=== PATIENT | male | born 1950 | race Hispanic/Latino ===

== ENCOUNTER 2021-06-16 18:52 | Inpatient (IN) | payer OTHER ==
--- OUTSIDE RECORDS SUMMARY | 2021-06-16 18:58 | XMS REPORT | Clinical Summary ---
:1950 Author Organization [facility] MD [facility] Address [address] [place] [address] Care Team Providers Name Role Phone Coby De Anda MD Unavailable Jarett Conteh MD Primary Care Provider Cindy Blanco Unavailable Allergies Active Allergy Reactions Severity Noted Date Comments Cayenne Pepper Swelling Medium 04/01/2021 Cayenne Pepper Fruits Swelling Medium 04/01/2021 Wasabi , jalapenos, chili, chili po wder, anything spicy Nsaids (Non-Steroidal Other (See Comments) Low 09/19/2017 Contraindication--- Anti-Inflammatory hep C Drug) Medications Medication Sig Dispensed Refills Start Date End Date Status potassium chloride Take 10 mEq 0 06/18/2019 Active (K-DUR,KLOR-CON M) by mouth 3 10 mEq tablet (three) times a day. ALPRAZolam (XANAX) 1 TABLET 0 12/31/2019 Active 1 mg tablet NIGHTLY ascorbic acid, Take 1 tablet 0 A ctive vitamin C, (VITAMIN by mouth 3 C) 1000 mg tablet (three) times a day. cholecalciferol, Take 2,000 0 Ac tive vitamin D3, 25 mcg Units by (1,000 unit) tablet mouth. turmeric, bulk, 100 Take 1 packet 0 Active % powd by mouth at bedtime. chlorthalidone Take 25 mg by 0 08/14/2019 Active (HYGROTON) 25 mg mouth daily. tablet milk thistle 500 mg Take 500 mg 0 Active cap by mouth twice daily. oxyCODONE Take 1 tablet 100 tablet 0 03/24/2021 Acti ve (ROXICODONE) 5 mg (5 mg) by immediate release mouth every 6 tabletIndications: (six) hours Pain due to as needed for neoplastic disease moderate pain. guaiFENesin Take 5 mL 500 mL 0 05/19/2021 Active (ROBITUSSIN) 100 (100 mg) by mg/5 mL mouth 3 syrupIndications: (three) times Cough at rest a day as <Cough; Acute> needed for cough or congestion. lisinopril Take 40 mg by 0 10/22/2019 05/19/20 Disc ontinued (PRINIVIL,ZESTRIL) mouth daily. 21 (Therapy 40 mg tablet complet ed) oxyCODONE Take 5 mg by 0 07/17/2019 03/24/20 Discon tinued (ROXICODONE) 5 mg mouth every 6 21 (Reorder) immediate release (six) hours tablet as needed. ondansetron Take 1 tablet 30 tablet 5 03/25/2021 05/19/20 Dis continued (Zofran) 8 mg (8 mg) by 21 (Alter elise tabletIndications: mouth every 8 therapy) Hepatocellular (eight) hours carcinoma as needed for nausea or vomiting. doxycycline Take 1 6 capsule 0 04/04/2021 04/07/20 (Vibramycin) 100 MG capsule (100 21 capsuleIndications: mg) by mouth Febrile neutropenia twice daily for 3 days. amoxicillin-clavula Take 1 tablet 6 tablet 0 04/04/202104/07 elise (Augmentin) (500 mg) by 21 500 mg-125 mg per mouth twice tabletIndications: daily for 3 Febrile neutropenia days. HYDROcodone-homatro Take 5 mL by 500 mL 0 05/19/2021 Discontinued pine (HYCODAN) 5 mouth every 6 21 (Alternate mg-1.5 mg/5 mL (six) hours the rapy) syrupIndications: as needed for Cough at rest cough. 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 03/2017 EGD, Dr Castano, Grade 1 varices not banded, repeat 1 year Formatting of this note might be differe nt from the original. 03/2017 EGD, Dr Castano, Grade 1 varices not banded, repeat 1 year Chronic liver disease 03/31/2017 Hypertensive disorder 2012 Overview: Formatting of this note might be differe nt from the original. ACEI + Diuretic Formatting of this note might be differe nt from the original. ACEI + Diuretic Lisinopril 40+ chlorthalidone 25 variabl e, but control typically under 140 Chronic viral hepatitis C 12/21/2011 Overview: Formatting of this note might be differe nt from the original. Treated with Harvoni. Formatting of this note might be differe nt from the original. Treated with Harvoni. Encounters Date Type Specialty Care Team Description 05/05/2021 Telephone Gastrointestinal Neha Pearson RN Medical Oncology 05/04/2021 Orders Only Gastrointestinal Suzie Rollins Medical Oncology [place] 04/16/2021 Infusion Infusion Services Jarett Conteh Hepatjayy portillo MD carcinoma (Primary [place]og[place], Dx) RACHAEL Eddy 04/16/2021 Office Visit Gastrointestinal Jarett Conteh, Hepatocell ular carcinoma (Primary Dx); Medical Oncology Chronic laura er disease; Chronic viral h epatitis C; Hepatic fibrosi s, advanced fibrosis; Hypertensive di sorder; Portal vein thr ombosis; Other secondary thrombocytopenia; Encounter for a ntineoplastic chemo; Encounter for e xamination prior to antineoplastic chemotherapy; Encounter for a ntineoplastic immunotherapy 04/16/2021 Hospital Encounter Lab Hepatocel lular carcinoma 04/16/2021 Travel 04/04/2021 Orders Only Radiology Bartolo Dial, RT 04/01/2021 Hospital Encounter Leukemia [place], Febrile n eutropenia (Primary Dx); - MD Jose Abdominal pain; 04/04/2021 Krysten, Son V., Hyperbilirub inemia; Hepatocellular carcinoma; Jimenez Alviarez, Fever present ing with conditions classified elsewhere; Corbin Head MD Gross hematuria Charlesegaray-Herve Arredondo MD 04/01/2021 Travel 03/31/2021 Documentation Gastrointestinal Martinez Varela, Medical Oncology 03/31/2021 Telephone Gastrointestinal Martinez Varela Medical Oncology 03/31/2021 Nurse Triage Radha Jacob, RN 03/30/2021 Telephone Gastrointestinal Lyndsey Durham Medical Oncology D, RN 03/27/2021 Telephone Infusion Services Barbara Durham Follow-u p RN 03/26/2021 Infusion Infusion Services Jarett Conteh Hepatocel lular MD carcinoma (Prim zoey Dx) 03/26/2021 Travel 03/24/2021 Telemedicine Gastrointestinal Jarett Conteh, Hepatocell darrian Medical Oncology carcinoma ( Primary Dx) 03/24/2021 Orders Only Gastrointestinal Jarett Conteh, Pain due t o Medical Oncology neoplastic disease (Primary Dx) 03/23/2021 Ancillary Procedure Radiology Suzie Rollins Hepat ocellular [place] carcinoma 03/23/2021 Travel 03/20/2021 Orders Only Gastrointestinal Stiven Bashir Hepatoce llular Medical Oncology [facility] carcinoma ( Primary Dx) 03/19/2021 Ancillary Procedure Radiology Jarett Conteh Cancer 03/19/2021 Hospital Encounter Lab Suzie Rollins Hepato cellular [place] carcinoma 03/19/2021 Office Visit Gastrointestinal Jarett Conteh Hepatocell darrian carcinoma (Primary Dx); Medical Oncology Chronic vir al hepatitis C; Esophageal vari siria in cirrhosis of the liver; Chronic liver d isease; Hepatic fibrosi s, advanced fibrosis; Portal vein thr ombosis 03/19/2021 NPR Patient Access Services 03/19/2021 Orders Only Gastrointestinal Jarett Conteh Medical Oncology 03/19/2021 Orders Only Gastrointestinal Stiven Bashir Hepatjustin cornelius Medical Oncology [facility] carcinoma ( Primary Dx) 03/19/2021 Travel 03/16/2021 Orders Only Gastrointestinal Suzie Rollins Hepatjustin cornelius Medical Oncology [facility] carcinoma ( Primary Dx) 02/23/2021 Ancillary Procedure Radiology Jarett Conteh, Cancer MD after 06/16/2020 Immunizations Name Administration Dates Next Due Influenza Split High Dose Preservative 04/14/2020, 8 Free IM Influenza TIV (IM) 05/21/2015 Influenza Whole 03/27/2013, 04/15/2012 Influenza, Quadrivalent 04/14/2020, 03/26/2019, 03/19/2017, 04/13/2016, 05/21/2015, 04/26/2014, 05/19/2010 Influenza, Unspecified 03/26/2019, 04/03/2018 Pneumococcal Conjugate 13-Valent 11/08/2016 Pneumococcal Polysaccharide 07/21/2018 Rabies, Intramuscular 07/12/2003 Tdap 11/06/2018 Typhoid, Unspecified 07/12/2003 Zoster, Unspecified 05/14/2015 Surgical History Surgery Date Site/Laterality Comments APPENDECTOMY 07/11/1960 - 07/10/1961 COLONOSCOPY 07/11/2017 - 07/10/2018 UPPER GASTROINTESTINAL ENDOSCOPY 07/11/2020 - 07/10/2021 Medical History Medical History Date Comments Hypertension 2009 Irregular heart beat 2020 Hepatitis 1985 Cured, harvoni in 20 15 Cirrhosis 2004 Polyp of colon 2017 Sexual dysfunction 2015 Anxiety 2009 Family History Patient is adopted Medical History Relation Name Comments Breast cancer Mother Relation Name Status Comments Mother He was adopted b ut his biological mother had breast cancer after her 50s Social History Tobacco Use Types Packs/Day Years Used Date Former Smoker Cigarettes 1 35 Smokeless Tobacco: Never Used Comments: Quit 20 years ago Alcohol Use Standard Drinks/Week Comments Yes 0 (1 standard drink = 0.6 oz pure None s fede 1997, drank more alcohol) frequently in early adulthood Alcohol Habits Answer Date Recorded How often do you have a drink Not asked containing alcohol? How many drinks containing alcohol Not asked do you have on a typical day when you are drinking? How often do you have six or more Not asked drinks on one occasion? Comment: None since 1997, drank more 03/19/2021 frequently in early adulthood Sex Assigned at Date Recorded Male 03/11/2021 8:04 AM CDT Job Start Date Occupation Industry Not on file Not on file Not on file Travel History Travel Start Travel End [place] 03/10/2021 03/10/2021 Obstetrics History Last Filed Vital Signs Vital Sign Reading Time Taken Comments Blood Pressure 133/76 04/16/2021 12:45 PM CDT Pulse 66 04/16/2021 12:45 PM CDT Temperature 37.1 C (98.7 F) 04/16/2021 12:45 PM CDT Respiratory Rate 18 04/16/2021 12:45 PM CDT Oxygen Saturation 96% 04/16/2021 10:56 AM CDT Inhaled Oxygen Concentration - - Weight 71 kg (156 lb 8.4 oz) 04/16/2021 10:56 AM CDT Height 168.6 cm (5' 6.38") 04/01/2021 6:27 AM CDT Body Mass Index 24.98 04/01/2021 6:27 AM CDT Plan of Treatment Date Type Specialty Care Team Description 06/20/2021 Appointment Lab 06/20/2021 Appointment Radiology 06/23/2021 Telemedicine Gastrointestinal Medical Jarett Conteh MD Oncology [address] [place], [place] [address] (Wo rk) 08/19/2021 Consult Gastroenterology, Hepatology Kris Raines Chi, MD & Nutrition [address] [place], [place] [address] (Wo rk) Health Maintenance Due Date Last Done Comments COVID-19 Vaccination (2 - Moderna risk 4-dose series) 03/21/2021 02/21/2021 Procedures Procedure Name Priority Date/Time Associated Diagnosis Comme nts MANUAL DIFFERENTIAL Routine 04/16/2021 Hepatocellular Result s for 7:46 AM CDT carcinoma this procedure are in the results section. Results CBC Routine 04/16/2021 Hepatocellular Results for 7:46 AM CDT carcinoma this procedure are in the results section. FRACTIONATED BILIRUBIN Routine 04/16/2021 Hepatocellular Res ults for 7:46 AM CDT carcinoma this procedure are in the results section. TOTAL PROTEIN Routine 04/16/2021 Hepatocellular Results for 7:46 AM CDT carcinoma this procedure are in the results section. ASPARTATE Routine 04/16/2021 Hepatocellular Results for AMINOTRANSFERASE 7:46 AM CDT carcinoma this proced ure are in the results section. ALANINE Routine 04/16/2021 Hepatocellular Results for AMINOTRANSFERASE 7:46 AM CDT carcinoma this proced ure are in the results section. ALKALINE PHOSPHATASE Routine 04/16/2021 Hepatocellular Resul ts for 7:46 AM CDT carcinoma this procedure are in the results section. ALBUMIN LEVEL Routine 04/16/2021 Hepatocellular Results for 7:46 AM CDT carcinoma this procedure are in the results section. CALCIUM LEVEL TOTAL Routine 04/16/2021 Hepatocellular Result s for 7:46 AM CDT carcinoma this procedure are in the results section. .GLOMERULAR FILTRATION Routine 04/16/2021 Hepatocellular Res ults for RATE 7:46 AM CDT carcinoma this procedure are in the results section. SERUM CREATININE Routine 04/16/2021 Hepatocellular Results f or 7:46 AM CDT carcinoma this procedure are in the results section. ELECTROLYTE PANEL Routine 04/16/2021 Hepatocellular Results for 7:46 AM CDT carcinoma this procedure are in the results section. BLOOD UREA NITROGEN Routine 04/16/2021 Hepatocellular Result s for 7:46 AM CDT carcinoma this procedure are in the results section. GLUCOSE LEVEL Routine 04/16/2021 Hepatocellular Results for 7:46 AM CDT carcinoma this procedure are in the results section. COMPLETE BLOOD COUNT W/ Routine 04/16/2021 Hepatocellular DIFFERENTIAL 7:46 AM CDT carcinoma COMPREHENSIVE METABOLIC Routine 04/16/2021 Hepatocellular PANEL 7:46 AM CDT carcinoma US RENAL Routine 04/04/2021 Results for 4:33 PM CDT this procedure are in the results section. ADENOVIRUS QUANTITATIVE Now 04/04/2021 Resu lts for URINE 1:03 PM CDT this procedure are in the results section. TRANSFUSE PLATELETS Routine 04/04/2021 11:28 AM CDT URINALYSIS MICROSCOPIC Routine 04/04/2021 Resul ts for 8:13 AM CDT this procedure are in the results section. CREATININE URINE, Now 04/04/2021 Results fo r RANDOM 8:13 AM CDT this procedure are in the results section. CALCIUM LEVEL URINE Now 04/04/2021 Results for 8:13 AM CDT this procedure are in the results section. URINALYSIS WITH Now 04/04/2021 Results for MICROSCOPIC IF 8:13 AM CDT this procedur e INDICATED are in the results section. BKV QUANT, URINE Now 04/04/2021 Results for 8:13 AM CDT this procedure are in the results section. URINE CULTURE Now 04/04/2021 Results for 8:13 AM CDT this procedure are in the results section. PLT PRODUCT READY FOR Routine 04/04/2021 Result s for BUILDING CONSTRUCTION CONTRACTOR 4:55 AM CDT this procedure are in the results section. PREPARE PLATELETS Routine 04/04/2021 Results fo r 4:55 AM CDT this procedure are in the results section. MRI BRAIN W WO CONTRAST Routine 04/04/2021 Resu lts for 4:37 AM CDT this procedure are in the results section. GENERAL LABORATORY ADD Now 04/04/2021 Resul ts for ON TEST 3:37 AM CDT this procedure are in the results section. PHOSPHORUS LEVEL AM 04/04/2021 Results for 12:52 AM CDT this procedure are in the results section. MAGNESIUM LEVEL AM 04/04/2021 Results for 12:52 AM CDT this procedure are in the results section. MANUAL DIFFERENTIAL AM 04/04/2021 Results for 12:52 AM CDT this procedure are in the results section. Results CBC AM 04/04/2021 Results for 12:52 AM CDT this procedure are in the results section. FRACTIONATED BILIRUBIN AM 04/04/2021 Resul ts for 12:52 AM CDT this procedure are in the results section. TOTAL PROTEIN AM 04/04/2021 Results for 12:52 AM CDT this procedure are in the results section. ASPARTATE AM 04/04/2021 Results for AMINOTRANSFERASE 12:52 AM CDT this proced ure are in the results section. ALANINE AM 04/04/2021 Results for AMINOTRANSFERASE 12:52 AM CDT this proced ure are in the results section. ALKALINE PHOSPHATASE AM 04/04/2021 Results for 12:52 AM CDT this procedure are in the results section. ALBUMIN LEVEL AM 04/04/2021 Results for 12:52 AM CDT this procedure are in the results section. CALCIUM LEVEL TOTAL AM 04/04/2021 Results for 12:52 AM CDT this procedure are in the results section. .GLOMERULAR FILTRATION AM 04/04/2021 Resul ts for RATE 12:52 AM CDT this procedure are in the results section. SERUM CREATININE AM 04/04/2021 Results for 12:52 AM CDT this procedure are in the results section. ELECTROLYTE PANEL AM 04/04/2021 Results fo r 12:52 AM CDT this procedure are in the results section. BLOOD UREA NITROGEN AM 04/04/2021 Results for 12:52 AM CDT this procedure are in the results section. GLUCOSE LEVEL AM 04/04/2021 Results for 12:52 AM CDT this procedure are in the results section. PROTHROMBIN TIME Now 04/04/2021 Results for 12:52 AM CDT this procedure are in the results section. APTT Now 04/04/2021 Results for 12:52 AM CDT this procedure are in the results section. FIBRINOGEN ACTIVITY Now 04/04/2021 Results for 12:52 AM CDT this procedure are in the results section. COMPLETE BLOOD COUNT W/ AM 04/04/2021 DIFFERENTIAL 12:52 AM CDT COMPREHENSIVE METABOLIC AM 04/04/2021 PANEL 12:52 AM CDT ME DIAGNOSTIC LUMBAR Routine 04/03/2021 Febrile neutropenia Results for SPINAL PUNCTURE 5:34 PM CDT this procedu re are in the results section. ADENOVIRUS QUANTITATIVE Now 04/03/2021 Resu lts for , CSF 5:14 PM CDT this procedure are in the results section. FUNGUS CULTURE W/ SMEAR Now 04/03/2021 Resu lts for 5:14 PM CDT this procedure are in the results section. CSF CULTURE Now 04/03/2021 Results for 5:14 PM CDT this procedure are in the results section. AFB CULTURE W/ SMEAR Now 04/03/2021 Results for 5:14 PM CDT this procedure are in the results section. CRYPTOCOCCAL ANTIGEN Routine 04/03/2021 Results for PATH REVIEW 5:12 PM CDT this procedure are in the results section. MENINGITIS-ENCEPHALITIS Now 04/03/2021 Resu lts for MULTIPLEX PANEL PATH 5:12 PM CDT this pr ocedure REVIEW are in the results section. MENINGITIS-ENCEPHALITIS Now 04/03/2021 Resu lts for PANEL 5:12 PM CDT this procedure are in the results section. CRYPTOCOCCAL ANTIGEN Now 04/03/2021 Results for 5:12 PM CDT this procedure are in the results section. GLUCOSE CEREBROSPINAL Routine 04/03/2021 Result s for FLUID 5:12 PM CDT this procedure are in the results section. PROTEIN CEREBROSPINAL Routine 04/03/2021 Result s for FLUID 5:12 PM CDT this procedure are in the results section. CELL COUNT W/ DIFF Routine 04/03/2021 Results f or CEREBROSPINAL FLUID 5:12 PM CDT this pro cedure are in the results section. TRANSFUSE PLATELETS Routine 04/03/2021 5:00 PM CDT TMP INTERPRETATION Routine 04/03/2021 Results f or ANTIBODY SCREEN 1:54 PM CDT this procedu re NEGATIVE are in the results section. CLOT EXPIRATION DATE Routine 04/03/2021 Results for 1:54 PM CDT this procedure are in the results section. ANTIBODY SCREEN Now 04/03/2021 Results for 1:54 PM CDT this procedure are in the results section. ABORH Now 04/03/2021 Results for 1:54 PM CDT this procedure are in the results section. CALCIUM LEVEL TOTAL Routine 04/03/2021 Results for 1:54 PM CDT this procedure are in the results section. .GLOMERULAR FILTRATION Routine 04/03/2021 Resul ts for RATE 1:54 PM CDT this procedure are in the results section. SERUM CREATININE Routine 04/03/2021 Results for 1:54 PM CDT this procedure are in the results section. ELECTROLYTE PANEL Routine 04/03/2021 Results fo r 1:54 PM CDT this procedure are in the results section. BLOOD UREA NITROGEN Routine 04/03/2021 Results for 1:54 PM CDT this procedure are in the results section. GLUCOSE LEVEL Routine 04/03/2021 Results for 1:54 PM CDT this procedure are in the results section. BASIC METABOLIC PANEL, Routine 04/03/2021 CALCIUM TOTAL 1:54 PM CDT TYPE AND SCREEN Now 04/03/2021 1:54 PM CDT CRYPTOCOCCAL ANTIGEN, Routine 04/03/2021 Result s for SERUM PATH REVIEW 1:53 PM CDT this proce dure are in the results section. CRYPTOCOCCAL ANTIGEN, Now 04/03/2021 Result s for SERUM 1:53 PM CDT this procedure are in the results section. CYTOLOGY NON-MICROBIOLOGY INSTRUCTOR Routine 04/03/2021 Fever presenting Results for INTERPRETATION 1:51 PM CDT with conditions this proce dure classified elsewhere are in the results section. PREPARE PLATELETS Routine 04/03/2021 Results fo r 10:17 AM CDT this procedure are in the results section. GENERAL LABORATORY ADD STAT 04/03/2021 Resul ts for ON TEST 6:29 AM CDT this procedure are in the results section. CT HEAD WO CONTRAST Routine 04/03/2021 Results for 5:35 AM CDT this procedure are in the results section. MANUAL DIFFERENTIAL AM 04/03/2021 Results for 2:26 AM CDT this procedure are in the results section. Results CBC AM 04/03/2021 Results for 2:26 AM CDT this procedure are in the results section. COMPLETE BLOOD COUNT W/ AM 04/03/2021 DIFFERENTIAL 2:26 AM CDT PHOSPHORUS LEVEL AM 04/03/2021 Results for 12:56 AM CDT this procedure are in the results section. MAGNESIUM LEVEL AM 04/03/2021 Results for 12:56 AM CDT this procedure are in the results section. FRACTIONATED BILIRUBIN AM 04/03/2021 Resul ts for 12:56 AM CDT this procedure are in the results section. TOTAL PROTEIN AM 04/03/2021 Results for 12:56 AM CDT this procedure are in the results section. ASPARTATE AM 04/03/2021 Results for AMINOTRANSFERASE 12:56 AM CDT this proced ure are in the results section. ALANINE AM 04/03/2021 Results for AMINOTRANSFERASE 12:56 AM CDT this proced ure are in the results section. ALKALINE PHOSPHATASE AM 04/03/2021 Results for 12:56 AM CDT this procedure are in the results section. ALBUMIN LEVEL AM 04/03/2021 Results for 12:56 AM CDT this procedure are in the results section. CALCIUM LEVEL TOTAL AM 04/03/2021 Results for 12:56 AM CDT this procedure are in the results section. .GLOMERULAR FILTRATION AM 04/03/2021 Resul ts for RATE 12:56 AM CDT this procedure are in the results section. SERUM CREATININE AM 04/03/2021 Results for 12:56 AM CDT this procedure are in the results section. ELECTROLYTE PANEL AM 04/03/2021 Results fo r 12:56 AM CDT this procedure are in the results section. BLOOD UREA NITROGEN AM 04/03/2021 Results for 12:56 AM CDT this procedure are in the results section. GLUCOSE LEVEL AM 04/03/2021 Results for 12:56 AM CDT this procedure are in the results section. COMPREHENSIVE METABOLIC AM 04/03/2021 PANEL 12:56 AM CDT BLOODCULTURE STAT 04/03/2021 Results for 12:56 AM CDT this procedure are in the results section. VANCOMYCIN LEVEL TROUGH Timed Study 04/02/2021 Resu lts for 3:41 PM CDT this procedure are in the results section. FRACTIONATED BILIRUBIN AM 04/02/2021 Resul ts for 4:03 AM CDT this procedure are in the results section. TOTAL PROTEIN AM 04/02/2021 Results for 4:03 AM CDT this procedure are in the results section. ASPARTATE AM 04/02/2021 Results for AMINOTRANSFERASE 4:03 AM CDT this proced ure are in the results section. ALANINE AM 04/02/2021 Results for AMINOTRANSFERASE 4:03 AM CDT this proced ure are in the results section. ALKALINE PHOSPHATASE AM 04/02/2021 Results for 4:03 AM CDT this procedure are in the results section. ALBUMIN LEVEL AM 04/02/2021 Results for 4:03 AM CDT this procedure are in the results section. CALCIUM LEVEL TOTAL AM 04/02/2021 Results for 4:03 AM CDT this procedure are in the results section. .GLOMERULAR FILTRATION AM 04/02/2021 Resul ts for RATE 4:03 AM CDT this procedure are in the results section. SERUM CREATININE AM 04/02/2021 Results for 4:03 AM CDT this procedure are in the results section. ELECTROLYTE PANEL AM 04/02/2021 Results fo r 4:03 AM CDT this procedure are in the results section. BLOOD UREA NITROGEN AM 04/02/2021 Results for 4:03 AM CDT this procedure are in the results section. GLUCOSE LEVEL AM 04/02/2021 Results for 4:03 AM CDT this procedure are in the results section. MANUAL DIFFERENTIAL AM 04/02/2021 Results for 4:03 AM CDT this procedure are in the results section. Results CBC AM 04/02/2021 Results for 4:03 AM CDT this procedure are in the results section. OSMOLALITY Now 04/02/2021 Results for 4:03 AM CDT this procedure are in the results section. COMPREHENSIVE METABOLIC AM 04/02/2021 PANEL 4:03 AM CDT PHOSPHORUS LEVEL AM 04/02/2021 Results for 4:03 AM CDT this procedure are in the results section. MAGNESIUM LEVEL AM 04/02/2021 Results for 4:03 AM CDT this procedure are in the results section. COMPLETE BLOOD COUNT W/ AM 04/02/2021 DIFFERENTIAL 4:03 AM CDT UREA NITROGEN URINE Now 04/01/2021 Results for 3:17 PM CDT this procedure are in the results section. OSMOLALITY URINE Now 04/01/2021 Results for 3:17 PM CDT this procedure are in the results section. CREATININE URINE, Now 04/01/2021 Results fo r RANDOM 3:17 PM CDT this procedure are in the results section. SODIUM URINE Now 04/01/2021 Results for 3:17 PM CDT this procedure are in the results section. CT ABDOMEN PELVIS W STAT 04/01/2021 Results for CONTRAST 5:10 AM CDT this procedure are in the results section. URINALYSIS WITH Now 04/01/2021 Results for MICROSCOPIC IF 4:58 AM CDT this procedur e INDICATED are in the results section. URINE CULTURE Now 04/01/2021 Results for 4:58 AM CDT this procedure are in the results section. LACTIC ACID, VENOUS STAT 04/01/2021 Results for 3:08 AM CDT this procedure are in the results section. TMP INTERPRETATION STAT 04/01/2021 Results f or ANTIBODY SCREEN 2:49 AM CDT this procedu re NEGATIVE are in the results section. CLOT EXPIRATION DATE STAT 04/01/2021 Results for 2:49 AM CDT this procedure are in the results section. GLUCOSE LEVEL Now 04/01/2021 Results for 2:49 AM CDT this procedure are in the results section. ANTIBODY SCREEN STAT 04/01/2021 Results for 2:49 AM CDT this procedure are in the results section. ABORH STAT 04/01/2021 Results for 2:49 AM CDT this procedure are in the results section. MANUAL DIFFERENTIAL STAT 04/01/2021 Results for 2:49 AM CDT this procedure are in the results section. Results CBC STAT 04/01/2021 Results for 2:49 AM CDT this procedure are in the results section. FRACTIONATED BILIRUBIN Now 04/01/2021 Resul ts for 2:49 AM CDT this procedure are in the results section. TOTAL PROTEIN Now 04/01/2021 Results for 2:49 AM CDT this procedure are in the results section. ASPARTATE Now 04/01/2021 Results for AMINOTRANSFERASE 2:49 AM CDT this proced ure are in the results section. ALANINE Now 04/01/2021 Results for AMINOTRANSFERASE 2:49 AM CDT this proced ure are in the results section. ALKALINE PHOSPHATASE Now 04/01/2021 Results for 2:49 AM CDT this procedure are in the results section. ALBUMIN LEVEL Now 04/01/2021 Results for 2:49 AM CDT this procedure are in the results section. CALCIUM LEVEL TOTAL Now 04/01/2021 Results for 2:49 AM CDT this procedure are in the results section. .GLOMERULAR FILTRATION Now 04/01/2021 Resul ts for RATE 2:49 AM CDT this procedure are in the results section. SERUM CREATININE Now 04/01/2021 Results for 2:49 AM CDT this procedure are in the results section. ELECTROLYTE PANEL Now 04/01/2021 Results fo r 2:49 AM CDT this procedure are in the results section. BLOOD UREA NITROGEN Now 04/01/2021 Results for 2:49 AM CDT this procedure are in the results section. CONFIRM ABORH TYPE STAT 04/01/2021 Results f or 2:49 AM CDT this procedure are in the results section. TYPE AND SCREEN STAT 04/01/2021 2:49 AM CDT APTT Now 04/01/2021 Results for 2:49 AM CDT this procedure are in the results section. PROTHROMBIN TIME Now 04/01/2021 Results for 2:49 AM CDT this procedure are in the results section. COMPLETE BLOOD COUNT W/ Now 04/01/2021 DIFFERENTIAL 2:49 AM CDT LIPASE LEVEL Now 04/01/2021 Results for 2:49 AM CDT this procedure are in the results section. AMYLASE LEVEL Now 04/01/2021 Results for 2:49 AM CDT this procedure are in the results section. COMPREHENSIVE METABOLIC Now 04/01/2021 PANEL 2:49 AM CDT PHOSPHORUS LEVEL Now 04/01/2021 Results for 2:49 AM CDT this procedure are in the results section. MAGNESIUM LEVEL Now 04/01/2021 Results for 2:49 AM CDT this procedure are in the results section. RESPIRATORY VIRAL PANEL Now 04/01/2021 Resu lts for + COVID-19, 2:49 AM CDT this procedure NASOPHARYNGEAL SWAB are in t he results section. BLOODCULTURE Now 04/01/2021 Results for 2:49 AM CDT this procedure are in the results section. URINALYSIS WITH Routine 03/26/2021 Hepatocellular Results fo r MICROSCOPIC IF 7:56 AM CDT carcinoma this procedur e INDICATED are in the results section. MANUAL DIFFERENTIAL Routine 03/26/2021 Hepatocellular Result s for 6:57 AM CDT carcinoma this procedure are in the results section. Results CBC Routine 03/26/2021 Hepatocellular Results for 6:57 AM CDT carcinoma this procedure are in the results section. FRACTIONATED BILIRUBIN Routine 03/26/2021 Hepatocellular Res ults for 6:57 AM CDT carcinoma this procedure are in the results section. TOTAL PROTEIN Routine 03/26/2021 Hepatocellular Results for 6:57 AM CDT carcinoma this procedure are in the results section. ASPARTATE Routine 03/26/2021 Hepatocellular Results for AMINOTRANSFERASE 6:57 AM CDT carcinoma this proced ure are in the results section. ALANINE Routine 03/26/2021 Hepatocellular Results for AMINOTRANSFERASE 6:57 AM CDT carcinoma this proced ure are in the results section. ALKALINE PHOSPHATASE Routine 03/26/2021 Hepatocellular Resul ts for 6:57 AM CDT carcinoma this procedure are in the results section. ALBUMIN LEVEL Routine 03/26/2021 Hepatocellular Results for 6:57 AM CDT carcinoma this procedure are in the results section. CALCIUM LEVEL TOTAL Routine 03/26/2021 Hepatocellular Result s for 6:57 AM CDT carcinoma this procedure are in the results section. .GLOMERULAR FILTRATION Routine 03/26/2021 Hepatocellular Res ults for RATE 6:57 AM CDT carcinoma this procedure are in the results section. SERUM CREATININE Routine 03/26/2021 Hepatocellular Results f or 6:57 AM CDT carcinoma this procedure are in the results section. ELECTROLYTE PANEL Routine 03/26/2021 Hepatocellular Results for 6:57 AM CDT carcinoma this procedure are in the results section. BLOOD UREA NITROGEN Routine 03/26/2021 Hepatocellular Result s for 6:57 AM CDT carcinoma this procedure are in the results section. GLUCOSE LEVEL Routine 03/26/2021 Hepatocellular Results for 6:57 AM CDT carcinoma this procedure are in the results section. ALPHA FETOPROTEIN TUMOR Routine 03/26/2021 Hepatocellular Re sults for MARKER 6:57 AM CDT carcinoma this procedure are in the results section. THYROID STIMULATING Routine 03/26/2021 Hepatocellular Result s for HORMONE 6:57 AM CDT carcinoma this procedure are in the results section. FREE THYROXINE Routine 03/26/2021 Hepatocellular Results for 6:57 AM CDT carcinoma this procedure are in the results section. FREE T3 Routine 03/26/2021 Hepatocellular Results for 6:57 AM CDT carcinoma this procedure are in the results section. COMPLETE BLOOD COUNT W/ Routine 03/26/2021 Hepatocellular DIFFERENTIAL 6:57 AM CDT carcinoma COMPREHENSIVE METABOLIC Routine 03/26/2021 Hepatocellular PANEL 6:[address] CHEST ABDOMEN PELVIS Routine 03/23/2021 Hepatocellular Re sults for W WO CONTRAST 2:10 PM CDT carcinoma this procedure are in the results section. TMP HCVAB INTERP Routine 03/19/2021 Results for 1:29 PM CDT this procedure are in the results section. TMP HIV 1/2 AG&AB PATH Routine 03/19/2021 Resul ts for INTERP 1:29 PM CDT this procedure are in the results section. HEPATITIS B SURFACE AG Routine 03/19/2021 Resul ts for W/CONFIRM 1:29 PM CDT this procedure are in the results section. HEPATITIS B CORE TOTAL Routine 03/19/2021 Resul ts for ANTIBODY 1:29 PM CDT this procedure are in the results section. FRACTIONATED BILIRUBIN Routine 03/19/2021 Hepatocellular Res ults for 1:29 PM CDT carcinoma this procedure are in the results section. TOTAL PROTEIN Routine 03/19/2021 Hepatocellular Results for 1:29 PM CDT carcinoma this procedure are in the results section. ASPARTATE Routine 03/19/2021 Hepatocellular Results for AMINOTRANSFERASE 1:29 PM CDT carcinoma this proced ure are in the results section. ALANINE Routine 03/19/2021 Hepatocellular Results for AMINOTRANSFERASE 1:29 PM CDT carcinoma this proced ure are in the results section. ALKALINE PHOSPHATASE Routine 03/19/2021 Hepatocellular Resul ts for 1:29 PM CDT carcinoma this procedure are in the results section. ALBUMIN LEVEL Routine 03/19/2021 Hepatocellular Results for 1:29 PM CDT carcinoma this procedure are in the results section. CALCIUM LEVEL TOTAL Routine 03/19/2021 Hepatocellular Result s for 1:29 PM CDT carcinoma this procedure are in the results section. .GLOMERULAR FILTRATION Routine 03/19/2021 Hepatocellular Res ults for RATE 1:29 PM CDT carcinoma this procedure are in the results section. SERUM CREATININE Routine 03/19/2021 Hepatocellular Results f or 1:29 PM CDT carcinoma this procedure are in the results section. ELECTROLYTE PANEL Routine 03/19/2021 Hepatocellular Results for 1:29 PM CDT carcinoma this procedure are in the results section. BLOOD UREA NITROGEN Routine 03/19/2021 Hepatocellular Result s for 1:29 PM CDT carcinoma this procedure are in the results section. GLUCOSE LEVEL Routine 03/19/2021 Hepatocellular Results for 1:29 PM CDT carcinoma this procedure are in the results section. MANUAL DIFFERENTIAL Routine 03/19/2021 Hepatocellular Result s for 1:29 PM CDT carcinoma this procedure are in the results section. Results CBC Routine 03/19/2021 Hepatocellular Results for 1:29 PM CDT carcinoma this procedure are in the results section. HEMOGLOBIN A1C Routine 03/19/2021 Hepatocellular Results for 1:29 PM CDT carcinoma this procedure are in the results section. HIV-1/2 ANTIGEN AND Routine 03/19/2021 Hepatocellular Result s for ANTIBODIES, FOURTH 1:29 PM CDT carcinoma this proc edure GENERATION are in the results section. HEPATITIS E VIRUS BY Routine 03/19/2021 Hepatocellular Resul ts for QUANTITATIVE PCR [place] 1:29 PM CDT carcinoma this p rocedure are in the results section. HEPATITIS C VIRUS RNA Routine 03/19/2021 Hepatocellular Resu lts for DETECT/QUANT, SERUM 1:29 PM CDT carcinoma this pro cedure are in the results section. HEPATITIS C VIRUS Routine 03/19/2021 Hepatocellular Results for ANTIBODY 1:29 PM CDT carcinoma this procedure are in the results section. HEPATITIS B CORE Routine 03/19/2021 Hepatocellular Results f or ANTIBODY 1:29 PM CDT carcinoma this procedure are in the results section. HEPATITIS B SURFACE Routine 03/19/2021 Hepatocellular Result s for ANTIBODY, SERUM 1:29 PM CDT carcinoma this procedu re are in the results section. HEPATITIS B SURFACE Routine 03/19/2021 Hepatocellular Result s for ANTIGEN, SERUM 1:29 PM CDT carcinoma this procedur e are in the results section. HEPATITIS A ANTIBODY Routine 03/19/2021 Hepatocellular Resul ts for IGG 1:29 PM CDT carcinoma this procedure are in the results section. FREE THYROXINE Routine 03/19/2021 Hepatocellular Results for 1:29 PM CDT carcinoma this procedure are in the results section. THYROID STIMULATING Routine 03/19/2021 Hepatocellular Result s for HORMONE 1:29 PM CDT carcinoma this procedure are in the results section. INSULIN LIKE GROWTH Routine 03/19/2021 Hepatocellular Result s for FACTOR 1 1:29 PM CDT carcinoma this procedure are in the results section. GROWTH HORMONE Routine 03/19/2021 Hepatocellular Results for 1:29 PM CDT carcinoma this procedure are in the results section. APTT Routine 03/19/2021 Hepatocellular Results for 1:29 PM CDT carcinoma this procedure are in the results section. PROTHROMBIN TIME Routine 03/19/2021 Hepatocellular Results f or 1:29 PM CDT carcinoma this procedure are in the results section. PHOSPHORUS LEVEL Routine 03/19/2021 Hepatocellular Results f or 1:29 PM CDT carcinoma this procedure are in the results section. MAGNESIUM LEVEL Routine 03/19/2021 Hepatocellular Results fo r 1:29 PM CDT carcinoma this procedure are in the results section. LACTATE DEHYDROGENASE Routine 03/19/2021 Hepatocellular Resu lts for 1:29 PM CDT carcinoma this procedure are in the results section. COMPREHENSIVE METABOLIC Routine 03/19/2021 Hepatocellular PANEL 1:29 PM CDT carcinoma CANCER ANTIGEN 19-9 Routine 03/19/2021 Hepatocellular Result s for 1:29 PM CDT carcinoma this procedure are in the results section. COMPLETE BLOOD COUNT W/ Routine 03/19/2021 Hepatocellular DIFFERENTIAL 1:29 PM CDT carcinoma ALPHA FETOPROTEIN TUMOR Routine 03/19/2021 Hepatocellular Re sults for MARKER 1:29 PM CDT carcinoma this procedure are in the results section. OSI PET CT SKULL TO MID Routine 01/08/2021 Cancer Resu lts for THIGH 5:39 PM CDT this procedure are in the results section. OSI PET CT SKULL TO MID Routine 10/23/2020 Cancer Resu lts for THIGH 12:46 PM CDT this procedure are in the results section. after 06/16/2020 Results .Serum Creatinine (04/16/2021 7:46 AM CDT)Only the most recent of8 results within the time period is included. Pathologist Sig nature Creatinine 0.77 0.67 - 1.17 mg/dL [facility] CANCER C ENTER Specimen Blood Performing Organization Address City/State/ZIP Code Phon e Number [facility] CANCER Unless otherwise noted, [place] [address] [place] all lab tests performed by: Division of Pathology and Laboratory Medicine [address] (ABNORMAL) .CBC (04/16/2021 7:46 AM CDT)Only the most recent of7 resultswithin the time period is included. WBC 2.2 (L) 4.0 - 11.0 [facility] K/uL DI[facility] RBC 3.27 (L) 4.50 - 6.00 [facility] M/uL [facility] Hgb 11.3 (L) 14.0 - 18.0 [facility] gm/dL DIAG[facility]STIC CENTER Hct 32.6 (L) 40.0 - 54.0 % [facility] DIAGNOSTIC [place] MCV 100 (H) 82 - 98 fL [facility] DIAGNOSTIC [place] MCH 34.6 (H) 27.0 - 31.0 [facility] pg DIAGNOSTIC CENTER MCHC 34.7 31.0 - 36.0 [facility] gm/dL DIAGNOSTIC CENTER RDW-SD 56.4 (H) 35.1 - 46.3 [facility] DIAGNOSTIC CENTER RDW-CV 15.6 (H) 12.0 - 15.5 % [facility] Platelet count 60 (L) 140 - 440 [facility] K/uL DIAGNOSTIC CENTER MPV 8.6 4.0 - 10.4 fL [facility] INRBC 0.0 <=0.0 % [facility] Comment: DIAGNOSTIC CENTER The INRBC (instrument NRBC) value reflects the enumera tion of nucleated red blood cells contained in a 200uL samp le of whole blood analyzed by the instrument. This value may differ from the NRBC value reported in a manual differ ential, which is based on a 100 cell differential. Specimen Blood Performing Organization Address City/State/ZIP Code Phon e Number [facility] DIAGNOSTIC Unless otherwise noted, [place] [address] [place] all lab tests performed by: Division of Pathology and Laboratory Medicine [facility] [address] [place] Glomerular Filtration Rate (04/16/2021 7:46 AM CDT)Only the most recent of8 resultswithin the time period is included. eGFR-AA 106 >=60 [facility] Comment: mL/min/1.73 CANCER CENTER Normal eGFR: >= 60 mL/min/1.73 m2 sq. m Note: The eGFR is calculated using the CKD-EPI equation. The eGFR declines with age. eGFR <60 mL/min/1.73 m2 is considered as "decreased". This equation should only be used for patients 18 and older. According to the National [facility]'s Kidney Disease Outcome Quality Initiative (KDOQI) classification and 2012 Kidney Disease Improving Global Outcomes (KDIGO) Clinical Practice Guideline, the stage of CKD should be categorized based on estimated GFR. Stage Description GFR mL/min/1.73 m2 1 Normal or high GFR >=90 2 Mildly decreased GFR 60-89 3a Mildly to moderately decreased GFR 45-59 3b Moderately to severely decreased GFR 30-44 4 Severely decreased GFR 15-29 5 Kidney failure <15 eGFR-SRINI 91 >=60 [facility] Comment: mL/min/1.73 CANCER CENTER Normal eGFR: >= 60 mL/min/1.73 m2 sq. m Note: The eGFR is calculated using the CKD-EPI equation. The eGFR declines with age. eGFR <60 mL/min/1.73 m2 is considered as "decreased". This equation should only be used for patients 18 and older. According to the National dney Foundation's Kidney Disease Outcome Quality Initiative (KDOQI) classification and 2012 Kidney Disease Improving Global Outcomes (KDIGO) Clinical Practice Guideline, the stage of CKD should be categorized based on estimated GFR. Stage Description GFR mL/min/1.73 m2 1 Normal or high GFR >=90 2 Mildly decreased GFR 60-89 3a Mildly to moderately decreased GFR 45-59 3b Moderately to severely decreased GFR 30-44 4 Severely decreased GFR 15-29 5 Kidney failure <15 Specimen Blood Performing Organization Address City/State/ZIP Code Phon e Number [facility] CANCER Unless otherwise noted, [place] [address] [place] all lab tests performed by: Division of Pathology and Laboratory Medicine [address] (ABNORMAL) Fractionated Bilirubin (04/16/2021 7:46 AM CDT)Only the most recent of7 resultswithin the time period is included. Bili Total 1.8 (H) <=1.2 mg/dL [facility] Comment: CANCER CENTER Indocyanine Green (ICG) may cause falsely elevated bilirubin results. Total and direct bilirubin must not be measured from samples containing indocyanine green. False elevation of total saira irubin can be seen in patients with IgG concentrations above 28 g/L. Bili Direct 1.0 (H)Comment: <=0.3 mg/dL [facility] Indocyanine Green CANCER CENTER (ICG) may cause falsely elevated bilirubin results. Total and direct bilirubin must not be measured from samples containing indocyanine green. Bili Indirect 0.8 0.0 - 0.9 [facility] mg/dL CANCER CENTER Specimen Blood Performing Organization Address City/[facility] Phon e Number [facility] CANCER Unless otherwise noted, [place] [address] C[place] all lab tests performed by: Division of Pathology and Laboratory Medicine [address] [facility] (ABNORMAL) Differential (04/16/2021 7:46 AM CDT)Only the most recent of7 resultswithin the time period is included. Neutrophil % 62.1 42.0 - 66.0 % [facility] Lymphocyte % 12.5 (L) 24.0 - 44.0 % [facility] Monocyte % 19.6 (H) 2.0 - 7.0 % [facility] DIAGNOSTIC [place] Eosinophil % 4.5 (H) 1.0 - 4.0 % [facility] Basophil % 0.9 0.0 - 1.0 % [facility] IGRE % 0.4Comment: IGRE 0.0 - 0.4 % [facility] % count includes DIAGNOSTIC CENTER Metamyelocytes, Myelocytes, and Promyelocytes. Neutrophil Abs 1.39 (L) 1.70 - 7.30 [facility] DI[facility]STIC [place] Lymphocyte Abs 0.28 (L) 1.00 - 4.80 [facility]ST[facility] [place] Monocyte Abs 0.44 0.08 - 0.70 [facility]NOSTIC [place] Eosinophil Abs 0.10 0.04 - 0.40 [facility] DI[facility]NOSTIC [place] Basophil Abs 0.02 0.00 - 0.10 [facility]NOSTIC [place] IG Abs 0.01 0.00 - 0.04 [facility] CENTER Specimen Blood Performing Organization Address City/[facility]/ZIP [facility] Phon e Number [facility] DIAGNOSTIC Unless otherwise noted, [place], [place] [address] [place] all lab tests performed by: Division of Pathology and Laboratory Medicine [facility] BUN (04/16/2021 7:46 AM CDT)Only the most recent of8 resultswithin the time period is included. Pathologist Sig nature BUN 17 6 - 23 mg/dL [facility] Specimen Blood Performing Organization Address City/[facility] Phon e Number [facility] CANCER Unless otherwise noted, [address] all lab tests performed by: Division of Pathology and Laboratory Medicine [address] [place] (ABNORMAL) ALT (04/16/2021 7:46 AM CDT)Only the most recent of7 resultswithin the time period is included. Pathologist Sig nature ALT 62 (H) <=41 U/L [facility] Specimen Blood Performing Organization Address City/[facility] Phon e Number [facility] Unless otherwise noted, [address] all lab tests performed by: Division of Pathology and Laboratory Medicine [address] [place] (ABNORMAL) Aspartate Aminotransferase (04/16/2021 7:46 AM CDT)Only the most recent of7 resultswithin the time period is included. Pathologist Sig nature AST 129 (H) <=40 U/L [facility] Specimen Blood Performing Organization Address [facility] Phon e Number [facility] Unless otherwise noted, [address] all lab tests performed by: Division of Pathology and Laboratory Medicine [address] [place] (ABNORMAL) Total Protein (04/16/2021 7:46 AM CDT)Only the most recent of7 resultswithin the time period is included. Pathologist Sig nature Total Protein 9.3 (H) 6.4 - 8.3 g/dL [facility] Specimen Blood Performing Organization Address [facility] e Number [facility] Unless otherwise noted, [address] all lab tests performed by: Division of Pathology and Laboratory Medicine [address] [place] [address] [place] (ABNORMAL) Alkaline Phosphatase (04/16/2021 7:46 AM CDT)Only the most recent of 7 resultswithin the time period is included. Pathologist Sig nature Alk Phos 272 (H) 40 - 129 U/L [facility] Specimen Blood Performing Organization Address City/[facility] Phon e Number [facility] CANCER Unless otherwise noted, [address] all lab tests performed by: Division of Pathology and Laboratory Medicine [address] [place] [address] [place] (ABNORMAL) Glucose Level (04/16/2021 7:46 AM CDT)Only the most recent of8 resultswithin the time period is included. Glucose Level 100 (H) 70 - 99 mg/dL [facility] Comment: CANCER CENTER Effective 02/04/16, the gluco se reference intervals have been updated based on [place] [employer] guidelines (Standards of Medical Care in Diabetes 2016. Diabetes Care 2016; 39: S13-S22). Fasting blood glucose: Normal: 70-99 mg/dL Impaired fasting glucose (in creased risk for diabetes or pre-diabetes): 100- 125 mg/dL Diabetes mellitus: >/=126 mg/dL Random blood glucose: Normal: 70-199 mg/dL Note: Random glucose >100 mg/dL is assoc iated with increased risk for diabetes Specimen Blood Performing Organization Address [facility] Phon e Number [facility] Unless otherwise noted, [address] all lab tests performed by: Division of Pathology and Laboratory Medicine [address] [place] Calcium Level (04/16/2021 7:46 AM CDT)Only the most recent of8 resultswithin the time period is included. Pathologist Sig nature Calcium Lvl 9.0 8.4 - 10.2 mg/dL [facility] CANCER NTER Specimen Blood Performing Organization Address [facility] Phon e Number [facility] Unless otherwise noted, [address] all lab tests performed by: Division of Pathology and Laboratory Medicine [address] [place] (ABNORMAL) Albumin Level (04/16/2021 7:46 AM CDT)Only the most recent of7 resultswithin the time period is included. Pathologist Sig nature Albumin Lvl 2.9 (L) 3.5 - 5.2 gm/dL [facility] Specimen Blood Performing Organization Address [facility] Phon e Number [facility] CANCER Unless otherwise noted, [address] all lab tests performed by: Division of Pathology and Laboratory Medicine [address] [place] (ABNORMAL) Electrolyte Panel (04/16/2021 7:46 AM CDT)Only the most recent of8 resultswithin the time period is included. Pathologist Sig nature Sodium Lvl 133 (L) 136 - 145 mEq/L [facility] Potassium Lvl 4.2 3.5 - 5.1 mEq/L [facility] Chloride 104 98 - 107 mEq/L [facility] CO2 20 (L) 22 - 29 mEq/L [facility] Anion Gap 9 4 - 14 mEq/L [facility] Specimen Blood Performing Organization Address City/State/ZIP Code Phon e Number [facility] CANCER Unless otherwise noted, [place] [address] CENTER all lab tests performed by: Division of Pathology and Laboratory Medicine [facility] US Renal (04/04/2021 4:33 PM CDT) Specimen Impressions [id number] - 04/04/2021 5:02 PM CDT No hydronephrosis. Narrative [id number] - 04/04/2021 5:02 PM CDT FULL RESULT: Examination: US RENAL, 04/04/2021 4:33 PM Clinical History: Fever Indication: Hematuria Comparison: CT study of the abdomen pelv is April 01, 2021 Technique: Grayscale and color Doppler u ltrasound of the kidneys and urinary bladder. Findings: The 10 cm long kidneys have normal echog enicity and without hydronephrosis. Bilateral cysts are present. There are s een in the comparison CT study. Arterial and venous flow is present in b oth kidneys. No intraluminal filling defects are seen in the urinary bladder. Procedure Note Apolinar Wong MD - 04/04/2021 FULL RESULT: Examination: US RENAL, 04/04/2021 4:33 P M Clinical History: Fever Indication: Hematuria Comparison: CT study of the abdomen pelv is April 01, 2021 Technique: Grayscale and color Doppler u ltrasound of the kidneys and urinary bladder. Findings: The 10 cm long kidneys have normal echog enicity and without hydronephrosis. Bilateral cysts are present. There are s een in the comparison CT study. Arterial and venous flow is present in b oth kidneys. No intraluminal filling defects are seen in the urinary bladder. IMPRESSION: No hydronephrosis. Performing Organization Address City/State/ZIP Code Phon e Number [id number] Adenovirus Quant, Urine (04/04/2021 1:03 PM CDT) ADV Not Detected Not Detected [facility] Urine-[facility] Comment: copies/mL [facility] Assay Range: 152 copies/mL to 1.00E+10 copies/mL The limit of quantitation (LOQ) is 152 copies/mL. Lb ovirus DNA detected below the LOQ will be reported as Detected:<1 52 copies/mL. This test was developed and its performance characteri stics determined by [employer]. It has not been cleare d or approved by the U.S. Food and Drug Administration. Results shou ld be used in conjunction with clinical findings, and should not for m the sole basis for a diagnosis or treatment decision. Performed At: [facility] [address] [place] [address] Elevator Attendant: Riley Araujo Ph.D., BCLAislinn (ABB) CLIA#: [id number] Phone: Specimen Urine Performing Organization Address City/State/ZIP Code Phon e Number [facility] CANCER Unless otherwise noted, [place] [address] [place] all lab tests performed by: Division of Pathology and Laboratory Medicine [facility] [address] Transfuse platelets:Transfusion Date: 04/04/2021 (04/04/2021 12:37 PM CDT)Only the most recent of2 resultswithin the time period is included.BKV Quant, Urine (04/04/2021 8:13 AM CDT) BKV Not Detected Not Detected [facility] Urine-[facility] Comment: copies/mL [facility] Assay Range: 500 copies/mL to 1.00E+10 copies/mL This test was developed and its performance characteri stics determined by [employer]. It has not been cleare d or approved by the U.S. Food and Drug Administration. Results shou ld be used in conjunction with clinical findings, and should not for m the sole basis for a diagnosis or treatment decision. Performed At: [facility] [place] [address] Elevator Attendant: Riley Araujo Ph.D., ELLEN (ABB) CLIA#: [id number] Phone: Specimen Urine Performing Organization Address City/[facility]/ZIP Code Phon e Number [facility] Unless otherwise noted, [address] all lab tests performed by: Division of Pathology and Laboratory Medicine [address] (ABNORMAL) Urinalysis with Microscopic (04/04/2021 8:13 AM CDT) Pathologist Sig nature UA WBC <1 0 - 2 /HPF [facility] UA RBC >182 (H) 0 - 2 /HPF [facility] UA Mucous NOT SEEN Not Seen-Trace /HPF [facility] UA Bacteria NOT SEEN NOT SEEN /HPF [facility] UA Squam Epi NOT SEEN None-Occasional [facility] /[facility] CENTER Specimen Urine Narrative [facility] - 9:12 AM CDT Some reporting parameters within the Urinalysis test have changed due to the implementation of new in strumentation in the Main [place], allowi ng greater sensitivity of measurement. Urinalysis results reported by the [facility] using existing instrumentation, as well as Urinalysis t esting performed manually or by backup methodology at the [facility] will remain relatively unchanged. New reporting parameters and units will now be reported for all campuses. Performing Organization Address City/State/ZIP Code Phon e Number [facility] Unless otherwise noted, [address] all lab tests performed by: Division of Pathology and Laboratory Medicine [address] Creatinine Urine (04/04/2021 8:13 AM CDT)Only the most recent of2 resultswithin the time period is included. U Creatinine 82.1Comment: The 40.0 - 278.0 [facility] reference range mg/dL CAN[facility]ER CENTER listed is for first morning urine collection. Specimen Urine Performing Organization Address City/[facility]/ZIP Code Phon e Number [facility] Unless otherwise noted, [address] all lab tests performed by: Division of Pathology and Laboratory Medicine [address] [place] [address] Calcium Urine (04/04/2021 8:13 AM CDT) Pathologist Sig rodo U Calcium 2.6Comment: Normal mg/dL [facility] range not available for [facility] CENTER collections less than 24 hours in duration. Specimen Urine Performing Organization Address City/[facility] Phon e Number [facility] CANCER Unless otherwise noted, [address] all lab tests performed by: Division of Pathology and Laboratory Medicine [address] [place] [address] (ABNORMAL) Urinalysis w/Microscopic if Indicated (04/04/2021 8:13 AM CDT)Only the most recent of3 resultswithin the time period is included. Pathologist Sig rodo UA Color Yellow Straw-Yellow [facility] UA Appear Clear Clear [facility] UA Glucose NEG NEG mg/dL [facility] UA Bili NEG NEG [facility] UA Ketones NEG NEG mg/dL [facility] UA Spec Grav 1.018 1.003 - 1.035 [facility] UA Blood Moderate (A) NEG [facility] UA pH 6.0 5.0 - 9.0 [facility] UA Protein NEG NEG mg/dL [facility] UA Urobilinogen NEG NEG [facility] UA Nitrite NEG NEG [facility] UA Leuk Est NEG NEG [facility] Specimen Urine Performing Organization Address City/[facility] Phon e Number [facility] CANCER Unless otherwise noted, [address] all lab tests performed by: Division of Pathology and Laboratory Medicine [address] [place] [address] [place] Urine Culture (04/04/2021 8:13 AM CDT)Only the most recent of2 resultswithin the time period is included. Final Report No growth [facility] Path Review - The results have been review ed and electronically signed by Pathologist: [facility] Urine Sharad Stanford MD, PhD #[id number] [facility] ER Specimen Urine, Clean Catch Performing Organization Address City/[facility] Phon e Number [facility] CANCER Unless otherwise noted, [address] all lab tests performed by: Division of Pathology and Laboratory Medicine [address] [place] [address] PLT Product Ready for Imaging Account Manager (04/04/2021 4:55 AM CDT) PLT Product Ready B2 Blood [facility] for Imaging Account Manager BankComment: [facility] CENTER Product is ready for warehouse picker on April 04, 2021 10:31:48 CDT. Specimen Blood Performing Organization Address City/[facility] Code Phon e Number [facility] CANCER Unless otherwise noted, [address] all lab tests performed by: Division of Pathology and Laboratory Medicine [address] [place] [address] Prepare platelets:Transfusion Date: 04/04/2021; Transfusion Indications: Actively Bleeding; G 1945, 1Units (04/04/2021 4:55 AM CDT)Only the most recent of2 resultswithin the time period is included. Pathologist [facility] PLT Product Ready ApprovedComment: [facility] Platelet order has [facility] been approved. Order Form 3 when ready for product issue. Expect 2 hours for platelet concentration. Unit Number [id number] [facility] Product Code [id number] [facility] Unit Expiration [id number] [facility] Unit Blood Type 5100 [facility] Product Code Text PLATELETS Pooled IR [facility] Number of Units in [address] [facility] CENTER Unit Irradiated IRRADIATED [facility] Dispense Status ISSUED [facility] Unit Blood Type O Positive [facility] Product Imaging Account Manager .BPAMComment: [facility] Location CANCER CENTER Specimen Blood Performing Organization Address City/State/ZIP [facility] Phon e Number [facility] CANCER Unless otherwise noted, [address] all lab tests performed by: Division of Pathology and Laboratory Medicine [address] [place] [address] MRI Brain with and without Contrast (04/04/2021 4:37 AM CDT) Specimen Impressions [id number] - 04/04/2021 7:00 AM CDT No evidence of intracranial metastatic disease. I personally reviewed these image(s) eden hernandez with the resident's/fellow's interpretations, certify that if a procedure was performed I was physically present, and agree with the final report. Narrative [id number] - 04/04/2021 7:00 AM CDT FULL RESULT: EXAMINATION: MRI BRAIN W WO CONTRAST on 04/04/2021 4:37 AM HISTORY: Fever INDICATION: Headache, new onset, Cancer screening COMPARISON: CT from 04/03/2021 TECHNIQUE: Multi-sequence MRI of the bra in with and without intravenous contrast as per standard departmental protocol. FINDINGS: INTRACRANIAL: The brain parenchyma is un remarkable. There is no abnormal parenchymal or leptomeningeal enhancement. Mild chronic small vessel ischemic disease is present. No suspicious enhancing lesions. No evidence of acute infarction. There is no evidence of acute infarction , new hemorrhage, or hydrocephalus. The visualized major intracranial vascular flow voids are unremarkable. EXTRA-CRANIAL SOFT TISSUES: The osseous structures and extra-cranial soft tissues are unremarkable. ORBITS: The orbital structures unremarka ble. SINUSES: Mild mucosal thickening in the left maxillary sinus. Left maxillary sinus mucus retention cyst. Procedure Note Joce Serrano MD - 04/04/2021 FULL RESULT: EXAMINATION: MRI BRAIN W WO CONTRAST on 04/04/2021 4:37 AM HISTORY: Fever INDICATION: Headache, new onset, Cancer screening COMPARISON: CT from 04/03/2021 TECHNIQUE: Multi-sequence MRI of the bra in with and without intravenous contrast as per standard departmental protocol. FINDINGS: INTRACRANIAL: The brain parenchyma is un remarkable. There is no abnormal parenchymal or leptomeningeal enhancement. Mild chronic small vessel ischemic disease is present. No suspicious enhancing lesions. No evidence of acute infarction. There is no evidence of acute infarction , new hemorrhage, or hydrocephalus. The visualized major intracranial vascular flow voids are unremarkable. EXTRA-CRANIAL SOFT TISSUES: The osseous structures and extra-cranial soft tissues are unremarkable. ORBITS: The orbital structures unremarka ble. SINUSES: Mild mucosal thickening in the left maxillary sinus. Left maxillary sinus mucus retention cyst. IMPRESSION: No evidence of intracranial metastatic d isease. I personally reviewed these image(s) eden hernandez with the resident's/fellow's interpretations, certify that if a procedure was performed I was physically present, and agree with the final report. Performing Organization Address City/State/ZIP Code Phon e Number [id number] General Laboratory Add-On Test (04/04/2021 3:37 AM CDT)Only the most recent of2 resultswithin the time period is included. Pathologist Sig nature Ordered Test Added [facility] Test Needed Phosphorus level, [facility] Magnesium level CAN[facility]ER CENTER Specimen Existing Performing Organization Address City/[facility] Phon e Number [facility] Unless otherwise noted, [address] all lab tests performed by: Division of Pathology and Laboratory Medicine [facility] [place] aPTT (04/04/2021 12:52 AM CDT)Only the most recent of3 resultswithin the time period is included. Pathologist Sig nature aPTT 33.5 24.7 - 36.8 second(s) [facility] CENTER Specimen Blood Performing Organization Address City/[facility] Phon e Number [facility] Unless otherwise noted, [address] all lab tests performed by: Division of Pathology and Laboratory Medicine [facility] [place] (ABNORMAL) Prothrombin Time with INR (04/04/2021 12:52 AM CDT)Only the most recent of3 resultswithin the time period is included. Pathologist Sig nature PT 14.8 (H) 11.5 - 13.9 [facility] second(s) CENTER INR 1.24 (H) 0.90 - 1.10 [facility] Specimen Blood Performing Organization Address City/[facility] Phon e Number [facility] CANCER Unless otherwise noted, [address] all lab tests performed by: Division of Pathology and Laboratory Medicine [facility] [place] Fibrinogen (04/04/2021 12:52 AM CDT) Pathologist Sig nature Fibrinogen 347 214 - 503 mg/dL [facility] Specimen Blood Performing Organization Address City/[facility] Phon e Number [facility] Unless otherwise noted, [address] all lab tests performed by: Division of Pathology and Laboratory Medicine [facility] [place] (ABNORMAL) Phosphorus Level (04/04/2021 12:52 AM CDT)Only the most recent of5 resultswithin the time period is included. Pathologist Sig nature Phosphorus 2.3 (L) 2.5 - 4.5 mg/dL [facility] TER Specimen Blood Performing Organization Address City/[facility] Phon e Number [facility] Unless otherwise noted, [address] all lab tests performed by: Division of Pathology and Laboratory Medicine [address] [place] [address] Magnesium Level (04/04/2021 12:52 AM CDT)Only the most recent of5 resultswithin the time period is included. Pathologist Sig nature Magnesium 1.6 1.6 - 2.6 mg/dL [facility] TER Specimen Blood Performing Organization Address City/[facility] Phon e Number [facility] Unless otherwise noted, [address] all lab tests performed by: Division of Pathology and Laboratory Medicine [address] [place] [address] ME DIAGNOSTIC LUMBAR SPINAL PUNCTURE (04/03/2021 5:34 PM CDT) Geovany Carr PA - 04/03/2021 5:3 4 PM CDT CECI Scott 04/03/2021 5:48 PM Lumbar Puncture without Chemotherapy Inj ection Date/Time: 04/03/2021 5:34 PM Provider Information: Performed by: CECI Scott Authorized by: Herve Garcia MD [employer] Supervisor present: no computer support analyst used: sales service professional no t needed Pre-Procedure Note: Consent obtained: yes [place] protocol (time-out) performed: yes Patient Diagnosis: Pre-Procedure Diagnosis: Fever Post-procedure diagnosis: unchanged Indications: Indications: diagnostic Anesthesia: Anesthesia: local infiltration Anesthetic total (ml): 5 Pre-medications: Pre-medications used?: no IV Fluids: IV fluids administered: no peripheral in travenous hydration Sedation: Patient sedated?: patient not sedated Procedure Details: Preparation: patient was prepped and chris ped in usual sterile fashion Lumbar space: L4-L5 interspace Patient's position: left lateral decubit us Needle gauge: 20 Needle type: Quincke needle Needle length (in): 3.5 Number of attempts: 2 Opening pressure (cm H2O): 16 Fluid appearance: clear Tubes of fluid: 2 Total volume (ml): 22 Estimated blood loss: none Post-procedure: adhesive bandage applied Complications?: no Patient instructed to lie flat for (hour s): 30 min Sample Disposition: Sample disposition: cytology, chemistry and microbiology (All specimen sent to main lab [id number]) Patient Disposition: Disposition: remain in current area Adenovirus Quant, CSF (04/03/2021 5:14 PM CDT) ADV CSF-[facility] Not Detected Not Detected [facility] Comment: copies/mL [facility] Assay Range: 109 copies/mL to 1.00E+10 copies/mL The limit of quantitation (LOQ) is 109 copies/mL. Lb ovirus DNA detected below the LOQ will be reported as Detected:<1 09 copies/mL. This test was developed and its performance characteri stics determined by [facility]. It has not been cleare d or approved by the U.S. Food and Drug Administration. Results shou ld be used in conjunction with clinical findings, and should not for m the sole basis for a diagnosis or treatment decision. Performed At: [employer] [facility] [address] [place] [address] Elevator Attendant: Riley Araujo Ph.D., BCLD (ABB) CLIA#: [id number] Phone: Specimen CSF Performing Organization Address City/State/ZIP Code Phon e Number [facility] CANCER Unless otherwise noted, [place] [address] [place] all lab tests performed by: Division of Pathology and Laboratory Medicine [facility] [place] Fungus Culture w/Smear (04/03/2021 5:14 PM CDT) Final Report No fungus isolated at [facility] 4 weeks. [facility] Path Review - Culture yield may be affecte d by sample quality, prior treatment, and transportation conditions. The results have been reviewed and electronically signed by Pathologist: [facility] Fungus Sharad Stanford MD, PhD #[id number] [facility]ENT ER Calcofluor Stain No Fungi seen in direct smear [place] MD Moody NDERSON Test performed by fluorescent stain methodology. [facility] Specimen CSF Narrative [facility] - 10/24/202 1 3:36 PM CDT Cultures are held for 4 weeks before fin alization. Performing Organization Address City/[facility]/ZIP Code Phon e Number [facility] CANCER Unless otherwise noted, [address] all lab tests performed by: Division of Pathology and Laboratory Medicine [address] [employer] Culture w/Smear (04/03/2021 5:14 PM CDT) Final Report No acid fast bacteria [facility] isolated at 8 weeks. [facility] CENTER Path Review - AFB Culture yield may be affecte d by sample quality, prior treatment, and transportation conditions. [facility] ... CAN[facility]ER CENTER The results have been reviewed and electronically sign ed by Pathologist: Linsey Mejia MD, PhD #[id number] Acid Fast Stain No Acid Fast Bacilli [facility] Truant seen in direct smear [facility] Specimen CSF Narrative [facility] - 1 5:48 AM [employer] Cultures are held 8 weeks before finaliz ation. Performing Organization Address City/[facility]/ZIP Code Phon e Number [facility] Unless otherwise noted, [address] all lab tests performed by: Division of Pathology and Laboratory Medicine [address] CSF Culture w/ Gram Stain (04/03/2021 5:14 PM CDT) Final Report No growth [facility] Path Review The results have been review ed and electronically signed by Pathologist: [facility] CHEPE Stanford MD, PhD #[id number] [facility]ENT ER Gram Stain Report Few WBC's seen [facility] No organisms seen. [facility] Specimen CSF Performing Organization Address City/[facility]/ZIP Code Phon e Number [facility] CANCER Unless otherwise noted, [address] all lab tests performed by: Division of Pathology and Laboratory Medicine [address] Meningitis-Encephalitis Multiplex Panel Path Review (04/03/2021 5:12 PM CDT) [facility] No pathogens detected by mul tiplex nucleic acid detection. Negative results do not preclude central nervous system (CRAB BUTCHER) infection as not all agents of CRAB BUTCHER infection are detected by this assay. Non-infe [facility] Review ctious causes of meningitis or encephalopathy should CANCER CENTER also be considered ... Reviewed and Electronically signed by Pathologist: Linsey Mejia MD, PhD #[id number] Comment: Assay is a multiplex PCR ass ay to aid in the diagnosis of meningitis / encephalitis. Results should be used in conjunction with other clinical and laboratory data and not as the sole basis for clinical decisions. Assay should not be used for monitoring response to therapy. LINSEY MEJIA MD, PhD - [id number] Dictated by: LINSEY MEJIA MD, PhD - [id number] Dictated Date/Time: 04.05.20 8:33 AM CDT Transcribed Date/Time: 04.05.2021 8:33 AM CDT Electronically Signed By: MARGARITA MEJIA MD, PhD - [id number] on 04.05.2021 8:33 AM C Specimen CSF Performing Organization Address City/[facility] Phon e Number [facility] Unless otherwise noted, [address] all lab tests performed by: Division of Pathology and Laboratory Medicine [address] [place] [address] Meningitis-Encephalitis Panel (04/03/2021 5:12 PM CDT) [facility] Menin/Enceph Panel Not [facility] Source SpecifiedComment: [facility] Assay is FDA-cleared for spinal fluid obtained via lumbar puncture. Escherichia coli K1 Not Detected Not Detected [facility] Haemophilus influenzae Not Detected Not Detected [facility] Listeria monocytogenes Not Detected Not Detected [facility] Neisseria meningitidis Not Detected Not Detected [facility] Streptococcus Not Detected Not Detected [facility] agalactiae [facility] Streptococcus Not Detected Not Detected [facility] pneumoniae [facility] Cytomegalovirus Not Detected Not Detected [facility] Enterovirus Not Detected Not Detected [facility] Herpes simplex Virus 1 Not Detected Not Detected [facility] Herpes simplex Virus 2 Not Detected Not Detected [facility] Human Herpesvirus 6 Not Detected Not Detected [facility] Human Parechovirus Not Detected Not Detected [facility] Varicella zoster Virus Not Detected Not Detected [facility] Cryptococcus Refer to separate [facility] neoformans/izzy Cryptococcal [facility] Antigen Assay. Specimen CSF Performing Organization Address City/[facility]/ZIP Code Phon e Number [facility] CANCER Unless otherwise noted, [address] all lab tests performed by: Division of Pathology and Laboratory Medicine [place] Cryptococcal Ag Path Review (04/03/2021 5:12 PM CDT) Pathologist Kevin Crypto Ag [place] Cryptococcal antigen negativ e making invasive cryptococcal disease unlikely. [facility] ... CANCER CENTER Reviewed and Electronically signed by Pathologist: Linsey Mejia MD, PhD #[id number] Comment: Reference Range: NEGATIVE The Cryptococcal Antigen Lat eral Flow Assay is a dipstick sandwich immunographic assay. Positive results will be titered. LINSEY MEJIA MD, PhD - [id number] Dictated by: LINSEY MEJIA MD, PhD - [id number] Dictated Date/Time: 04.05.20 8:21 AM CDT Transcribed Date/Time: 04.05.2021 8:21 AM CDT Electronically Signed By: MARGARITA MEJIA MD, PhD - [id number] on 04.05.2021 8:21 AM C Specimen CSF Performing Organization Address City/State/ZIP Code Phon e Number [facility] Unless otherwise noted, [address] all lab tests performed by: Division of Pathology and Laboratory Medicine [facility] [place] Cryptococcal Ag (04/03/2021 5:12 PM CDT) Pathologist Sig nature Cryptococcal Antigen Negative Negative [facility] Specimen CSF Performing Organization Address City/State/ZIP Code Phon e Number [facility] Unless otherwise noted, [address] all lab tests performed by: Division of Pathology and Laboratory Medicine Amy Oneill (ABNORMAL) Cell Count w/ Diff CSF (04/03/2021 5:12 PM CDT) Type CSF TapComment: When [place] MD OROSCO reviewing the [facility] count and differential results, clinicians should consider the length of time between spinal fluid collection and testing and the clinical condition of the patient. Appear CSF CLEARComment: When CLEAR [facility] reviewing the cell [facility] count and differential results, clinicians should consider the length of time between spinal fluid collection and testing and the clinical condition of the patient. Color CSF ColorlessComment: Colorless [facility] When reviewing the [facility]ENTER cell count and differential results, clinicians should consider the length of time between spinal fluid collection and testing and the clinical condition of the patient. WBC CSF 1Comment: When 0 - 5 /mcL [facility] reviewing the cell [facility] count and differential results, clinicians should consider the length of time between spinal fluid collection and testing and the clinical condition of the patient. RBC CSF 0Comment: When 0 - 0 /mcL [facility] reviewing the cell [facility] count and differential results, clinicians should consider the length of time between spinal fluid collection and testing and the clinical condition of the patient. Tot Cells CSF 20Comment: When [facility] reviewing the cell [facility] count and differential results, clinicians should consider the length of time between spinal fluid collection and testing and the clinical condition of the patient. Neut CSF 15 (H)Comment: When 0 - 5 % [facility] reviewing the cell [facility] count and differential results, clinicians should consider the length of time between spinal fluid collection and testing and the clinical condition of the patient. Lymph CSF 55Comment: When 28 - 96 % [facility] reviewing the cell [facility] count and differential results, clinicians should consider the length of time between spinal fluid collection and testing and the clinical condition of the patient. Histiocyte CSF 30Comment: When 16 - 56 % [facility] reviewing the cell [facility] count and differential results, clinicians should consider the length of time between spinal fluid collection and testing and the clinical condition of the patient. Microorganisms CSF None SeenComment: None Seen [facility] When reviewing the [facility]ENTER cell count and differential results, clinicians should consider the length of time between spinal fluid collection and testing and the clinical condition of the patient. Specimen CSF - CSF, Lumbar Puncture Performing Organization Address City/State/ZIP Code Phon e Number [facility] Unless otherwise noted, [place] [address] [place] all lab tests performed by: Division of Pathology and Laboratory Medicine Jessica5 Haleigh Oneill Protein CSF (04/03/2021 5:12 PM CDT) Protein CSF <28 15 - 45 mg/dL [facility] Type CSF TapComment: When [facility] reviewing the cell [facility] count and differential results, clinicians should consider the length of time between spinal fluid collection and testing and the clinical condition of the patient. Specimen CSF Performing Organization Address City/[facility]/ZIP Code Phon e Number [facility] Unless otherwise noted, [address] all lab tests performed by: Division of Pathology and Laboratory Medicine [facility] Haleigh [place] (ABNORMAL) Glucose CSF (04/03/2021 5:12 PM CDT) Pathologist Kevin Glucose CSF 73 (H) 40 - 70 mg/dL [facility] Type CSF TapComment: When [facility] reviewing the [facility] count and differential results, clinicians should consider the length of time between spinal fluid collection and testing and the clinical condition of the patient. Specimen CSF - CSF, Lumbar Puncture Performing Organization Address [facility] Phon e Number [facility] Unless otherwise noted, [address] all lab tests performed by: Division of Pathology and Laboratory Medicine [address] [place] [address] [place] Clot Expiration Date (04/03/2021 1:54 PM CDT)Only the most recent of2 results within the time period is included. Pathologist Sig nature T & S Expiration 04/06/2021 [facility] Specimen Blood Performing Organization Address City/[facility]/ZIP [facility] Phon e Number [facility] Unless otherwise noted, [address] all lab tests performed by: Division of Pathology and Laboratory Medicine [facility] Brunson [place] TMP Interpretation Antibody Screen Negative (04/03/2021 1:54 PM CDT)Only the most recent of2 resultswithin the time period is included. Pathologist Kevin TMP Auto Neg ABSC At the present time, patien t plasma shows no evidence of RBC alloantibodies. [facility] Interp Comment: [facility]ER CENTER BOUBACAR BARCENAS, Dictated by: BOUBACAR BARCENAS, Dictated Date/Time: 04.03.20 17:13 PM CDT Transcribed Date/Time: 04.03.2021 17:13 PM CDT Electronically Signed By: BOUBACAR BARCENAS, on 0 04.03.2021 17:13 PM Specimen Blood Performing Organization Address City/[facility]/ZIP Code Phon e Number [facility] Unless otherwise noted, [address] all lab tests performed by: Division of Pathology and Laboratory Medicine [facility] ABORh (04/03/2021 1:54 PM CDT)Only the most recent of2 resultswithin the time period is included. Pathologist Sig nature ABORh. O POS [facility] Specimen Blood Performing Organization Address City/State/ZIP Code Phon e Number [facility] Unless otherwise noted, [address] all lab tests performed by: Division of Pathology and Laboratory Medicine [address] [place] [address] Antibody Screen (04/03/2021 1:54 PM CDT)Only the most recent of2 resultswithin the time period is included. Pathologist Sig nature ABSC. Negative ABSC [facility] CENT[facility] R Specimen Blood Performing Organization Address City/[facility] Phon e Number [facility] Unless otherwise noted, [address] all lab tests performed by: Division of Pathology and Laboratory Medicine [address] [place] [address] Cryptococcal Ag Serum Path Review (04/03/2021 1:53 PM CDT) Crypto Ag, Serum Cryptococcal antigen negativ e making invasive cryptococcal disease unlikely. [facility] ME ... CANCER CENTER Reviewed and Electronically signed by Pathologist: Linsey Mejia MD, PhD #[id number] Comment: Reference Range: NEGATIVE The Cryptococcal Antigen Lat eral Flow Assay is a dipstick sandwich immunographic assay. Positive results will be titered. LINSEY MEJIA MD, PhD - [id number] Dictated by: LINSEY MEJIA MD, PhD - [id number] Dictated Date/Time: 04.05.20 8:48 AM CDT Transcribed Date/Time: 04.05.2021 8:48 AM CDT Electronically Signed By: MARGARITA MEJIA MD, PhD - [id number] on 04.05.2021 8:48 AM C Specimen Blood Performing Organization Address City/[facility] Phon e Number [facility] Unless otherwise noted, [address] all lab tests performed by: Division of Pathology and Laboratory Medicine [address] [place], [place] [address]d Cryptococcal Antigen, Serum (04/03/2021 1:53 PM CDT) Pathologist Sig nature Cryptococcal Antigen Negative Negative [facility] Screen, Serum [facility]ENTER Specimen Blood Performing Organization Address City/[facility] Phon e Number [facility] Unless otherwise noted, [address] all lab tests performed by: Division of Pathology and Laboratory Medicine [address] [place] [address] Cytology Non-Desktop Analyst Interpretation (04/03/2021 1:51 PM CDT) Gross Description A: [facility] 1 Diff Quik; 1 Pap Stain Slides 9 ml. clear colorless fluid Specimen concentrated by cytocentrifugation technique Major Classification [facility]/benign [facility] Electro nically signed by Annette reeder MD on 04/06/2021 at 4:06 PM Diagnosis A. Cerebrospinal fluid, lumbar puncture: [facility] Retained/Biomarker SR: 2 S [facility] Testing Informational Points Some tests reported [facility] here may have been developed and performance characteristics determined by [facility] Pathology and Laboratory Medicine. These tests have not been specifically cleared or approved by the U.S. Food and Drug Administration. Specimen Fluid - CSF, Lumbar Puncture Performing Organization Address [facility] Phon e Number [facility] [address] Head without Contrast (04/03/2021 5:35 AM CDT) Specimen Impressions [id number] - 04/03/2021 6:18 AM CDT Mild rightward midline shift, without cl ear etiology identified. This appears to be stable compared to outside study PET/CT dated 01/08/2021 and is likely a normal variant. I personally reviewed these image(s) eden hernandez with the resident's/fellow's interpretations, certify that if a procedure was performed I was physically present, and agree with the final report. Narrative [id number] - 04/03/2021 6:18 AM CDT FULL RESULT: EXAMINATION: CT HEAD WO CONTRAST on 04/03 5:35 AM COMPARISON: Outside hospital PET/CT date d 01/08/2021 HISTORY: Hyperbilirubinemia Febrile neutropenia Febrile neutropenia Abdominal pain Hepatocellular carcinoma INDICATION: Fever, Headache, new onset TECHNIQUE: CT scan of the brain was perf ormed without intravenous contrast as per departmental protocol. FINDINGS: INTRACRANIAL: The brain parenchyma is un remarkable. Scattered white matter hypodensities likely represent chronic microvascular ischemic changes. The morillo- white matter differentiation is maintained. There is no evidence for intra-axial or extra-axial hemorrhage. There is mild rightward midline shift of 3 mm at the level of the foramen Monro. This appears to be stable compared to PET CT dated 01/09/20 and is likely a normal variant. No ma ss effect seen. There is no evidence for hydrocephalus. There is no large acute territorial infa rction. CALVARIA: The calvaria and extracranial soft tissues are unremarkable. ORBITS: The orbital structures are unrem arkable. SINUSES: Mucosal thickening noted in the left maxillary sinus. The mastoid air cells are clear.. Procedure Note Joce Serrano MD - 04/03/2021 FULL RESULT: EXAMINATION: CT HEAD WO CONTRAST on 04/03 5:35 AM COMPARISON: Outside hospital PET/CT date d 01/08/2021 HISTORY: Hyperbilirubinemia Febrile neutropenia Febrile neutropenia Abdominal pain Hepatocellular carcinoma INDICATION: Fever, Headache, new onset TECHNIQUE: CT scan of the brain was perf ormed without intravenous contrast as per departmental protocol. FINDINGS: INTRACRANIAL: The brain parenchyma is un remarkable. Scattered white matter hypodensities likely represent chronic microvascular ischemic changes. The morillo- white matter differentiation is maintained. There is no evidence for intra-axial or extra-axial hemorrhage. There is mild rightward midline shift of 3 mm at the level of the foramen Monro. This appears to be stable compared to PET CT dated 01/08/2021 and is likely a normal variant. No mass effect seen. T here is no evidence for hydrocephalus. There is no large acute territorial infa rction. CALVARIA: The calvaria and extracranial soft tissues are unremarkable. ORBITS: The orbital structures are unrem arkable. SINUSES: Mucosal thickening noted in the left maxillary sinus. The mastoid air cells are clear.. IMPRESSION: Mild rightward midline shift, without cl ear etiology identified. This appears to be stable compared to outside study PET/CT dated 01/08/2021 and is likely a normal variant. I personally reviewed these image(s) eden hernandez with the resident's/fellow's interpretations, certify that if a procedure was performed I was physically present, and agree with the final report. Performing Organization Address [facility] Phon e Number [id number] Blood Culture (04/03/2021 12:56 AM CDT)Only the most recent of2 resultswithin the time period is included. Final Report No growth [facility] Path Review - Immunity and antibiotic use may render culture negative. Ongoing infection requires repeat culture. The results have been reviewed and electronically signed by Pathologist: [facility] Bottle/Isolator Sharad Stanford MD, PhD #[id number] [facility] ENTER Specimen Blood - Periph Venous Left Performing Organization Address [facility] Phon e Number [facility] Unless otherwise noted, [address] all lab tests performed by: Division of Pathology and Laboratory Medicine [address] [place] [address] Vancomycin Trough Draw vanc trough before administering 4th vanc dose 1600 04/02. Please hold if level is >20. (04/02/2021 3:41 PM CDT) Vanco Trough 8.1Comment: Toxic 5.0 - 20.0 [facility] Trough Level: >20 mcg/mL CAN[facility]ER CENTER mcg/mL Vanco Tr Dose Time See Note [facility] Comment: [facility]ENTER Level, date, and time of previous dose is not availabl e for this sample. The date reported is the sample collection date. Vanco Tr Dose Date 04/02/2021 [facility] Specimen Blood Narrative [facility] - 6:21 PM CDT Draw vanc trough before administering 4t h vanc dose 1600 04/02. Please hold if level is >20. Performing Organization Address [facility] Phon e Number [facility] Unless otherwise noted, [address] all lab tests performed by: Division of Pathology and Laboratory Medicine [address] [place] (ABNORMAL) Osmolality (04/02/2021 4:03 AM CDT) Pathologist Sig nature Osmolality 272 (L)Comment: 275 - 300 [facility] Units in mOsm mOsm/kg H2O [facility] per kg of water. Specimen Blood Performing Organization Address [facility] Phon e Number [facility] Unless otherwise noted, [address] all lab tests performed by: Division of Pathology and Laboratory Medicine [address] [place] Sodium Level, Urine (04/01/2021 3:17 PM CDT) Pathologist Sig nature U Sodium 121Comment: Normal mEq/L [facility] range not available for [facility] CENTER collections less than 24 hours in duration. Specimen Urine Performing Organization Address [facility] Phon e Number [facility] Unless otherwise noted, [address] all lab tests performed by: Division of Pathology and Laboratory Medicine [address] [place] Urea Nitrogen Urine (04/01/2021 3:17 PM CDT) Pathologist Sig nature U Urea 250Comment: Normal mg/dL [facility] range not available for [facility]ENTER collections less than 24 hours in duration. Specimen Urine Performing Organization Address [facility] Phon e Number [facility] Unless otherwise noted, [address] all lab tests performed by: Division of Pathology and Laboratory Medicine [address] [place] Osmolality Urine (04/01/2021 3:17 PM CDT) U Osmolality 450 50 - 1,400 [facility] Comment: mOsm/kg H2O [facility] Urinary osmolality may vary widely, depending on the state of hydration. Random urine osmolality can range from 50 to 1400 mOsm/kg H2O depending on fluid intake. In individuals on average fluid intake, urine osmolality is typically 300-900 mOsm/kg H2O. Units of measure: mOsm per Kg of water. Specimen Urine Performing Organization Address [facility] Phon e Number [facility] Unless otherwise noted, [address] all lab tests performed by: Division of Pathology and Laboratory Medicine [address] Abdomen Pelvis with IV Contrast (04/01/2021 5:10 AM CDT) Specimen Impressions [id number] - 04/01/2021 11:22 AM CDT 1. No acute intra-abdominal abnormality. 2. Infiltrative HCC involving predomin antly the left hepatic lobe. 3. Extensive tumor thrombus in the mike n and left portal veins, extending toward the portosplenic confluence. 4. Portal hypertension, with collatera l flow, extensive varices, and splenomegaly. 5. Interval resolution of distal small bowel wall thickening in the surrounding mesenteric inflammation. I personally reviewed these image(s) eden ng with the resident's/fellow's interpretations, certify that if a procedure was performed I was physically present, and agree with the final report. Narrative [id number] - 04/01/2021 11:22 AM CDT FULL RESULT: Examination: CT ABDOMEN PELVIS W CONTRAS T, 04/01/2021 5:10 AM Clinical History: Febrile neutropenia Febrile neutropenia Indication: liver cancer / fever Comparison: CT chest/abdomen/pelvis date d 03/23/2021 Technique: CT of the abdomen and pelvis was performed with intravenous contrast. Findings: Line and Tubes:None. Lower thorax: Mild bibasilar subsegmenta l atelectasis Liver: Large irregular ill-defined infil trating mass involving the left hepatic lobe with extension into hepatic segment 5/8, measuring approximately 2.9 x 3.8 cm (series 6 image 29). The liver is overa ll nodular and cirrhotic. Extensive port osplenic, perigastric, and esophageal varices are seen in the upper abdomen. There is a large tumor thrombus, which e xpands the main portal vein and expands from the left portal vein toward the portosplenic confluence. There is likely due to thrombus within the left main hepatic vein. Biliary: Gallbladder is distended, uncha nged. Spleen: Splenomegaly, measuring 15.5 cm. Pancreas: Normal. Adrenals: Normal. Kidneys, ureters: Simple renal cysts, me asuring up to 5.3 cm on the right. No hydronephrosis. Normal contrast excretion on delayed images. Bladder: Normal. Reproductive organs:Prostate and seminal vesicles are normal. Gastrointestinal:Stomach, small and larg e bowel are normal. Interval resolution of distal small bowel wall thickening and mesenteric edema. No obstruction. Lymph nodes:Stable 1 cm hepatoduodenal l igament lymph node. No other enlarged lymph nodes identified. Peritoneum, retroperitoneum: No ascites. No peritoneal implants. No free air. Bones: No osseous lesions. Mild thoracol umbar degenerative changes. Soft tissue: Normal. Procedure Note Rogelio Ford MD - 04/01/2021 FULL RESULT: Examination: CT ABDOMEN PELVIS W CONTRAS T, 04/01/2021 5:10 AM Clinical History: Febrile neutropenia Febrile neutropenia Indication: liver cancer / fever Comparison: CT chest/abdomen/pelvis date d 03/23/2021 Technique: CT of the abdomen and pelvis was performed with intravenous contrast. Findings: Line and Tubes:None. Lower thorax: Mild bibasilar subsegmenta l atelectasis Liver: Large irregular ill-defined infil trating mass involving the left hepatic lobe with extension into hepatic segment 5/8, measuring approximately 2.9 x 3.8 cm (series 6 image 29). The liver is overall nodular and cirrhotic. Extensive portosp lenic, perigastric, and esophageal varices are seen in the upper abdomen. There is a large tumor thrombus, which e xpands the main portal vein and expands from the left portal vein toward the portosplenic confluence. There is likely due to thrombus within the left main hepatic vein. Biliary: Gallbladder is distended, uncha nged. Spleen: Splenomegaly, measuring 15.5 cm. Pancreas: Normal. Adrenals: Normal. Kidneys, ureters: Simple renal cysts, me asuring up to 5.3 cm on the right. No hydronephrosis. Normal contrast excretion on delayed images. Bladder: Normal. Reproductive organs:Prostate and seminal vesicles are normal. Gastrointestinal:Stomach, small and larg e bowel are normal. Interval resolution of distal small bowel wall thickening and mesenteric edema. No obstruction. Lymph nodes:Stable 1 cm hepatoduodenal l igament lymph node. No other enlarged lymph nodes identified. Peritoneum, retroperitoneum: No ascites. No peritoneal implants. No free air. Bones: No osseous lesions. Mild thoracol umbar degenerative changes. Soft tissue: Normal. IMPRESSION: 1. No acute intra-abdominal abnormality . 2. Infiltrative HCC involving predomina ntly the left hepatic lobe. 3. Extensive tumor thrombus in the main and left portal veins, extending toward the portosplenic confluence. 4. Portal hypertension, with collateral flow, extensive varices, and splenomegaly. 5. Interval resolution of distal small bowel wall thickening in the surrounding mesenteric inflammation. I personally reviewed these image(s) eden hernandez with the resident's/fellow's interpretations, certify that if a procedure was performed I was physically present, and agree with the final report. Performing Organization Address City/State/ZIP Code Phon e Number [id number] VB Lactate (04/01/2021 3:08 AM CDT) Pathologist Sig nature V Lactate 1.4 0.5 - 1.6 mmol/L [facility] CE NTER Specimen Blood Performing Organization Address City/State/ZIP Code Phon e Number [facility] Unless otherwise noted, [place], [place] [id number] [place] [address] all lab tests performed by: Division of Pathology and Laboratory Medicine [address] [facility] Respiratory Viral Panel + COVID-19, Nasopharyngeal Swab (04/01/2021 2:49 AM CDT) Pathologist [facility] RMP Source Not Applicable [facility] Adenovirus Not Detected Not Detected [facility] Coronavirus 229E Not Detected Not Detected [facility] Coronavirus HKU1 Not Detected Not Detected [facility] Coronavirus NL63 Not Detected Not Detected [facility] Coronavirus OC43 Not Detected Not Detected [facility] COVID19 (SARS-CoV-2) Not Detected Not Detected [facility] Human Metapneumovirus Not Detected Not Detected [facility] Human Not Detected Not Detected [facility] Rhinovirus/Enterovirus [facility] Influenza A Not Detected Not Detected [facility] Influenza A H1 Not Detected Not Detected [facility] Influenza A H1 2009 Not Detected Not Detected [facility] Influenza A H3 Not Detected Not Detected [facility] Influenza B Not Detected Not Detected [facility] Parainfluenza 1 Not Detected Not Detected [facility] Parainfluenza 2 Not Detected Not Detected [facility] Parainfluenza 3 Not Detected Not Detected [facility] Parainfluenza 4 Not Detected Not Detected [facility] Respiratory Syncytial Not Detected Not Detected [facility] Virus [facility] Bordetella Not Detected Not Detected [facility] Parapertussis [facility] Bordetella pertussis Not Detected Not Detected [facility] Chlamydiophila Not Detected Not Detected [facility] CENTER Mycoplasma pneumoniae Not Detected Not Detected [facility] Specimen Nasopharyngeal Swab Narrative [facility] - 1 5:04 AM CDT The BioFire RP2.1 is a real-time, nested multiplexed polymerase chain reaction test designed to simul taneously identify nucleic acids from 22 different viruses and bacteria associated with respiratory tract infection, including SARS-CoV-2, from a single nasopharyngeal swab (PROFESSOR OF HISTORICAL THEOLOGY) specimen. Spec ifically, the SARS-CoV-2 primers contained in the BioFire RP2.1 are designed to detect RNA from the SARS-CoV-2 in nasopharyngeal swabs in transport media from patients who are suspected of COVID-19 by their healthcare provider. Results must be int erpreted within the context of all relevant clinical and laboratory findings and should not form the sole basis for a diagnosis or treatment decision. This assay has been approved by the FDA for use only under Emergency Use Authorization (EUA) in laboratories that have been CLIA-certified to perform moderate-complexity and high-complexity tests. The [facility], CLIA Accreditation #[id number] and CAP Accreditation #[id number], verified the performance characteristics of this assay. Microbiology Laboratory at [facility] performs the assay using the Team [employer] Mixed Martial arts System. Internal control s are used to monitor all stages of the test proces s. The BioFire RP2.1 is a real-time, nested multiplexed polymerase chain reaction test designed to simultaneously identify nucleic acids from 22 different virus es and bacteria associated with respirat ory tract infection, including SARS-CoV-2, from a single nasopharyngeal swab (PROFESSOR OF HISTORICAL THEOLOGY) specimen. Specifically, the SARS-CoV-2 primers contained in the BioFire RP2.1 are designed to detect RNA from the SARS-CoV-2 in n asopharyngeal swabs in transport media f rom patients who are suspected of COVID-19 by their healthcare provider. Results must be interpreted within the context of all relevant clinical and laboratory findings and should not form the sole basis for a diagnosis or treatment decision. This assay has been approved by the FDA for use only under Emergency Use Authorization (EUA) in laboratories that have been CLIA-certified to perform moderate-complexity and high-complexity tests. The M icrobiology Laboratory at [facility], CLIA Accreditation #[id number] and CAP Accreditation #[id number], verified the performance characteristics of this assay. Microbiology Laboratory at [facility] performs the assay using the [employer] System. Internal control s are used to monitor all stages of the test proces s. Performing Organization Address City/[facility] Phon e Number [facility] Unless otherwise noted, [address] all lab tests performed by: Division of Pathology and Laboratory Medicine [address] Confirm ABORh (04/01/2021 2:49 AM CDT) Pathologist Sig nature ABORh Confirm. O POS [facility] ER Specimen Blood Performing Organization Address [facility] Phon e [facility] Unless otherwise noted, [address] all lab tests performed by: Division of Pathology and Laboratory Medicine [address] Lipase (04/01/2021 2:49 AM CDT) Pathologist Sig nature Lipase Lvl 35 13 - 60 U/L [facility] Specimen Blood Performing Organization Address City/[facility] Phon e Number [facility] Unless otherwise noted, [address] all lab tests performed by: Division of Pathology and Laboratory Medicine [address] Amylase (04/01/2021 2:49 AM CDT) Pathologist Sig nature Amylase Lvl 74 28 - 100 U/L [facility] Specimen Blood Performing Organization Address [facility] Phon e Number [facility] Unless otherwise noted, [address] all lab tests performed by: Division of Pathology and Laboratory Medicine [address] (ABNORMAL) AFP (03/26/2021 6:57 AM CDT)Only the most recent of2 resultswithin the time period is included. AFP 9,286.0 (H) <=8.3 ng/mL [facility] Comment: [facility] CENTER Results greater than 45,875. 00 ng/mL may not be reliable due to matrix effect with extended dilution as it exceeds the neuroscience director na's recommended limit. Caution should be exercised when interpreting such values and done in conjunction with clinical context. This test is measured by logan ctrochemiluminescence immunoassay on Arsalan Fallon immunoassay analyzers. Results obtained in different methods are not interchangeable. Specimen Blood Performing Organization Address City/State/ZIP Code Phon e Number [facility] CANCER Unless otherwise noted, [place], [place] [id number] [place] [address] all lab tests performed by: Division of Pathology and Laboratory Medicine [address] Free T3 (03/26/2021 6:57 AM CDT) Pathologist Sig nature Free T3 2.2Comment: Performed at 2.0 - 4.4 pg/mL [facility], [address] [place] [address] Specimen Blood Performing Organization Address City/[facility]/ZIP Code Phon e Number [place], [place] [phone] [place] [address] (ABNORMAL) TSH (03/26/2021 6:57 AM CDT)Only the most recent of2 resultswithin the time period is included. Pathologist Sig nature TSH 8.82 (H)Comment: 0.27 - 4.20 [place] Testing performed at [facility], [address] [place] [address] Specimen Blood Performing Organization Address City/[facility] Code Phon e Number [place], [place] [phone] [place] [address] Free T4 (03/26/2021 6:57 AM CDT)Only the most recent of2 resultswithin the time period is included. Pathologist Sig nature T4 Free 0.97Comment: Testing 0.93 - 1.70 ng/dL [place] performed [facility], [address] [place] [address] Specimen Blood Performing Organization Address City/[facility]/ZIP [facility] Phon e Number [place], [place] [phone] [place] [address] CT Chest Abdomen Pelvis with and without Contrast (03/23/2021 2:10 PM CDT) Specimen Impressions [id number] - 03/24/2021 11:05 AM CDT 1. Multifocal bilobar HCC, predominant ly involving segments 2 and 3. 2. Extensive tumor thrombus in the mike n and left portal vein, with slight worsening along the portosplenic junction. 3. Interval development possible ische fatmata, edema or inflammation in the distal small bowel. 4. Portal hypertension with extensive collateral flow, paraesophageal varices and splenomegaly. 5. No definite metastasis to the thora x. Narrative [id number] - 03/24/2021 11:05 AM CDT FULL RESULT: Examination: CT CHEST ABDOMEN PELVIS W W O CONTRAST, 03/23/2021 2:10 PM Clinical History: Hepatocellular carcino ma Indication: Restaging; liver protocol Comparison: Outside facility PET/CT from 01/08/2021 and 10/23/2020 Technique: CT of the abdomen was perform ed without intravenous contrast followed by CT of the chest, abdomen, and pelvis with intravenous contrast, liver protocol. Findings: TUMOR: Clusters of HCC demonstrating contrast e nhancement and washout involving predominantly segments 2 and 3 and to a lesser extent nearby segments 1, 4A, 4B, 8, 5 and possibly 6 and 7. As a whole, the clust er of masses in segments 2 and 3 measure s approximately 7.8 cm x 7.2 cm. Comparison to prior outside facility PET/CT from 01/08/2021 difficult secondary to difference in imaging modality. Extensive tumor thrombus distends the ma in portal vein towards the portosplenic junction and left portal vein. The thrombus increased-worsened at the level of the portosplenic junction (series 5 image 1 77). The left main hepatic vein also lik levi filled with tumor thrombus. The liver is nodular and cirrhotic. Port al hypertension evident with extensive upper abdominal collateral flow including periportal and prominent periesophageal varices. The spleen is enlarged measuring approximately 17 cm in length. Very sma ll volume ascites increased. Interval development of distal small bow el wall thickening with adjacent mesenteric edema. This may be secondary to ischemic, edema or inflammation. The small bowel is slightly dilated but without definite obstruction seen currently. LYMPH NODES: A few small nonspecific lymph nodes yamileth g the left gastric and hepatoduodenal ligament are unchanged, one of which measures 0.7 cm and 1.0 cm respectively. METASTASIS: No definite metastasis in the thorax. OTHER: A punctate 0.2 cm indeterminate left low er lobe pulmonary nodule not well- visualized previously secondary to technique and can be followed (series 11 image 94). No suspicious pulmonary nodules seen elsewhere. No pleural effusions. Moderate to heavy atherosclerotic diseas e of the coronary arteries. Bilateral renal cortical cysts are uncha nged, the largest measuring 5.2 cm on the right. No hydronephrosis. The gallbladder remains slightly dilated , but without CT evidence of acute cholecystitis. The adrenal glands are normal. Moderate degenerative changes along the thoracic and lumbar spine consisting of osteophyte formations. Findings discussed with CECI Harrison on 03/24/2021 at approximately 11:05 AM. Procedure Note Modesto Thompson MD - 03/24/2021 FULL RESULT: Examination: CT CHEST ABDOMEN PELVIS W W O CONTRAST, 03/23/2021 2:10 PM Clinical History: Hepatocellular carcino ma Indication: Restaging; liver protocol Comparison: Outside facility PET/CT from 01/08/2021 and 10/23/2020 Technique: CT of the abdomen was perform ed without intravenous contrast followed by CT of the chest, abdomen, and pelvis with intravenous contrast, liver protocol. Findings: TUMOR: Clusters of HCC demonstrating contrast e nhancement and washout involving predominantly segments 2 and 3 and to a lesser extent nearby segments 1, 4A, 4B, 8, 5 and possibly 6 and 7. As a whole, the cluster of masses in segments 2 and 3 measures approximately 7.8 cm x 7.2 cm. Comparison to prior outside facility PET/CT from 01/08/2021 difficult secondary to difference in imaging modality. Extensive tumor thrombus distends the ma in portal vein towards the portosplenic junction and left portal vein. The thrombus increased-worsened at the level of the portosplenic junction (series 5 image 177). The left main hepatic vein a lso likely filled with tumor thrombus. The liver is nodular and cirrhotic. Port al hypertension evident with extensive upper abdominal collateral flow including periportal and prominent periesophageal varices. The spleen is enlarged measuring approximately 17 cm in length. Very smal l volume ascites increased. Interval development of distal small bow el wall thickening with adjacent mesenteric edema. This may be secondary to ischemic, edema or inflammation. The small bowel is slightly dilated but without definite obstruction seen currently. LYMPH NODES: A few small nonspecific lymph nodes yamileth g the left gastric and hepatoduodenal ligament are unchanged, one of which measures 0.7 cm and 1.0 cm respectively. METASTASIS: No definite metastasis in the thorax. OTHER: A punctate 0.2 cm indeterminate left low er lobe pulmonary nodule not well- visualized previously secondary to technique and can be followed (series 11 image 94). No suspicious pulmonary nodules seen elsewhere. No pleural effusions. Moderate to heavy atherosclerotic diseas e of the coronary arteries. Bilateral renal cortical cysts are uncha nged, the largest measuring 5.2 cm on the right. No hydronephrosis. The gallbladder remains slightly dilated , but without CT evidence of acute cholecystitis. The adrenal glands are normal. Moderate degenerative changes along the thoracic and lumbar spine consisting of osteophyte formations. Findings discussed with CECI Harrison on 03/24/2021 at approximately 11:05 AM. IMPRESSION: 1. Multifocal bilobar HCC, predominantl y involving segments 2 and 3. 2. 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 3. Interval development possible ischem ia, edema or inflammation in the distal small bowel. 4. Portal hypertension with extensive c ollateral flow, paraesophageal varices and splenomegaly. 5. No definite metastasis to the thorax . Performing Organization Address City/[facility] Phon e Number [id number] (ABNORMAL) Hepatitis B Core Total Antibody (03/19/2021 1:29 PM CDT) Pathologist [facility] HBc Total Ab-[place] Positive (A) Negative [facility] Comment: CANCER CENTER If clinically indicated, testing for Hepatitis B Core IgM antibody is necessary to differentiate between acu te and past HBV infection. Test Performed by: [facility] [address] [facility], [place] [address] Spanish Linguist: Tai Josue M.D. Ph.D.; CLIA# [id number] Specimen Blood Performing Organization Address City/[facility] Phon e Number [facility] CANCER Unless otherwise noted, [place] [address] CENTER all lab tests performed by: Division of Pathology and Laboratory Medicine [address] [place] [address] Hepatitis E Virus by Quant PCR [facility] (03/19/2021 1:29 PM CDT) Pathologist [facility] Hepatitis E <3.3 [facility] Quant by PCR, Log IU/mL Hepatitis E Not Detected Not Detected [facility] Quant by PCR, Comment: Interp INTERPRETIVE INFORMATION: Hepatitis E Virus by Quantit ative PCR The quantitative range of this assay is 3.3- 8.3 log IU/mL (1,800- 180,000,000 IU/mL). One IU/mL of HEV RNA is ap proximately 2.25 copies/mL. A negative result (less than 3.3 log IU/mL or less t [place] 1,800 IU/mL) does not rule out the presence of PCR inhibitor s in the patient specimen or HEV RNA concentrations below the l evel of detection of the test. Inhibition may also lead to und erestimation of viral quantitation. This test was developed and its performance characteri stics determined by [facility]. It has not been clear ed or approved by the [place] Food and Drug Administration. This test was performed in a CLIA certified laboratory and is intend ed for clinical purposes. Performed By: [address] [address] Elevator Attendant: Holli Burris MD Hepatitis E <1,800 IU/mL [facility] Quant by PCR, IU/mL Hepatitis E Serum [facility] Quant by PCR, Source Specimen Blood Performing Organization Address City/[facility] Phon e Number [address] [address] TMP HIV 1/2 Ag&Ab Path Interp (03/19/2021 1:29 PM CDT) HIV 1/2 Ag&Ab Negative for HIV-1 antigen a nd HIV-1/HIV-2 antibodies. No laboratory evidence of HIV infection. If acute HIV infection is suspected, consider testing for HIV-1 RNA. [facility] Interp Comment: CENTER JETT NIXON, Dictated by: JETT NIXON, Dictated Date/Time: 03.20.20 11:22 AM CDT Transcribed Date/Time: 03.20.2021 11:22 AM CDT Electronically Signed By: JETT NIXON, on 03.11 11:22 AM Specimen Blood Performing Organization Address City/[facility] Phon e Number [facility] [address] [place] [address] Hepatitis A Antibody IgG (03/19/2021 1:29 PM CDT) [facility] Hepatitis A IgG Positive [facility] Comment: CANCER CENTER Result indicates immunity to hepatitis A infection fro m either vaccination or past exposure to hepatitis A. False-positive results may be observed in patients wit h CMV antibodies or heterophilic antibodies. REFERENCE VALUE ------ Unvaccinated: Negative Vaccinated: Positive Test Performed by: [facility] [address] [place] [address] Spanish Linguist: Tai Josue M.D. Ph.D.; CLIA# [id number] Specimen Blood Performing Organization Address City/[facility] Code Phon e Number [facility] CANCER Unless otherwise noted, [place] [address] CENTER all lab tests performed by: Division of Pathology and Laboratory Medicine [facility] HIV-1/2 Antigen and Antibodies, Fourth Generation (03/19/2021 1:29 PM CDT) [facility] HIV 1/2 Ag & Ab, Non Reactive Non Reactive [facility] 4th Gen Comment: CENTER Performed at: [facility] [address] [place] [address] Specimen Blood Performing Organization Address City/[facility] Phon e Number [facility] [address] [place] [address] TMP HCV Ab Path Interp (03/19/2021 1:29 PM CDT) [facility] HCV Ab Path Patient shows evidence of He patitis C virus antibody. This may be due to prior exposure to the Hepatitis C virus. [facility] Interp Comment: CENTER JETT NIXON, Dictated by: JETT NIXON, Dictated Date/Time: 03.20.20 11:20 AM CDT Transcribed Date/Time: 03.20.2021 11:20 AM CDT Electronically Signed By: JETT NIXON, on 03.11 11:20 AM Specimen Blood Performing Organization Address City/State/[facility] Phon e Number [facility] [address] [place] [address] Hepatitis C Virus RNA Detect/Quant (03/19/2021 1:29 PM CDT) Pathologist [facility] HepC RNA PCR Undetected Undetected IU/mL [facility] Comment: [facility] CENTER Result in log IU/mL is Undetected. ADDITIONAL INFORMATION ------ The quantification range of this assay is 15 to 100,00 0,000 IU/mL (1.18 log to 8.00 log IU/mL). Testing was perfor med using the fallon HCV test ([employer]) with the fallon Robinhood0 System. Test Performed by: [facility] [place] [address] Spanish Linguist: Tai Josue M.D. Ph.D.; CLIA# [id number] Specimen Blood Performing Organization Address [facility] Phon e Number [facility] CANCER Unless otherwise noted, [place] [address] [place] all lab tests performed by: Division of Pathology and Laboratory Medicine [facility] Insulin-Like Growth Factor I (03/19/2021 1:29 PM CDT) [facility] Kevin Insulin-Like 49 32 - 200 [facility] Growth Factor ng/mL [place] [address]-[place] IGF Z-score -1.65 -2.0 - 2.0 [facility] Comment: [facility] ADDITIONAL INFORMATION ------ This test was developed and its performance characteri stics determined by [facility] in a manner consistent with CLIA requirements. This test has not been cleared or approv ed by the U.S. Food and Drug Administration. Test Performed by: [facility] [place] [address] Spanish Linguist: Tai Josue M.D. Ph.D.; CLIA# [id number] Specimen Blood Performing Organization Address [facility] Phon e Number [facility] CANCER Unless otherwise noted, [address] all lab tests performed by: Division of Pathology and Laboratory Medicine [address] [place] [address] (ABNORMAL) Hepatitis C Virus Ab (03/19/2021 1:29 PM CDT) [facility] HCVAb. Reactive (A) Non Reactive [facility] Comment: CENTER Antibody detection in the im munocompromised and immunosuppressed population may be delayed or absent entirely. Therefore serial testing, correlation with other clinical findings, and supplemental testin g (if available) should be taken into consideration when interpreting the results. Performed at: [facility] [address] [place] [id number] Specimen Blood Performing Organization Address City/[facility] Phon e Number [facility] [address] [place] [address] Hepatitis B Surface Ag w/Confirm (03/19/2021 1:29 PM CDT) Pathologist [facility] Hep Bs Ag-Almaguer Negative Negative [facility] Comment: CANCER CENTER Test Performed by: [place] [address] Spanish Linguist: Tai Josue M.D. Ph.D.; CLIA# [id number] Specimen Blood Performing Organization Address City/[facility] Phon e Number [facility] CANCER Unless otherwise noted, [address] all lab tests performed by: Division of Pathology and Laboratory Medicine [address] [place] [address] Hepatitis B Total Ig Core Ab (SCREENING) (anti-HBc total Ig; HBcAb total Ig) (03/19/2021 1:29 PM CDT) Pathologist [facility] nature HBcAb Received See NoteComment: [facility] HBcAb was sent to a CANCER CENTER reference lab for testing. Expect results on Hepatitis B Core Total Ab within 96 hours. Specimen Blood Performing Organization Address City/[facility] Phon e Number [facility] CANCER Unless otherwise noted, [address] all lab tests performed by: Division of Pathology and Laboratory Medicine [address] [place] [address] (ABNORMAL) [place] 19-9 (03/19/2021 1:29 PM CDT) [facility] CA 19-9 56.1 (H) <=35.0 U/mL [facility] Comment: CANCER CENTER Results greater than 9500 U/ mL may not be reliable due to matrix effect with extended dilution as it exceeds the neuroscience director na's recommended limit. Caution should be exercised when interpreting such valu es and done in conjunction with clinical context. This test is measured by logan ctrochemiluminescence immunoassay on Arsalan Fallon immunoassay analyzers. Results obtained in different methods are not interchangeable. Specimen Blood Performing Organization Address [facility] Phon e Number [facility] Unless otherwise noted, [address] all lab tests performed by: Division of Pathology and Laboratory Medicine [address] [place] [address] (ABNORMAL) Growth Hormone (03/19/2021 1:29 PM CDT) Pathologist [facility] Growth 4.54 (H) 0.01 - 0.97 [facility] Comment: ng/mL [facility] Test Performed by: [place] [address] Spanish Linguist: Tai Josue M.D. Ph.D.; CLIA# [id number] Specimen Blood Performing Organization Address City/[facility] Phon e Number [facility] Unless otherwise noted, [address] all lab tests performed by: Division of Pathology and Laboratory Medicine [facility] Hepatitis B Surface Antibody (03/19/2021 1:29 PM CDT) [facility] Hep Bs Ab[place] Positive [facility] Comment: [facility] Patient is considered to be immune to infection with H BV. REFERENCE VALUE ------ Unvaccinated: Negative Vaccinated: Positive Hep Bs Ab [facility] 186 mIU/mL [facility] Comment: [facility] REFERENCE VALUE ------ Unvaccinated: <5.0 Vaccinated: >=12.0 Test Performed by: [facility] [place] [address] Spanish Linguist: Tai Josue M.D. Ph.D.; CLIA# [id number] Specimen Blood Performing Organization Address City/[facility]/ZIP [facility] Phon e Number [facility] Unless otherwise noted, [address] all lab tests performed by: Division of Pathology and Laboratory Medicine [facility] [place] Hepatitis B Surface Ag (03/19/2021 1:29 PM CDT) Pathologist Sig nature HBsAg Received See NoteComment: [facility] HBsAg was sent to a [facility] reference lab for testing. Expect results on Hepatitis B Surface Antigen w/ Confirm within 96 hours. Specimen Blood Performing Organization Address City/[facility] Phon e Number [facility] Unless otherwise noted, [address] all lab tests performed by: Division of Pathology and Laboratory Medicine [facility] [place] (ABNORMAL) [facility] (03/19/2021 1:29 PM CDT) [facility] 226 (H)Comment: 135 - 225 U/L [facility] Results greater than [facility] 1651 U/L may not be reliable due to matrix effect with extended dilution as it exceeds the neuroscience director na s recommended limit. Caution should be exercised when interpreting such values and done in conjunction with clinical context. Specimen Blood Performing Organization Address [facility] Phon e Number [facility] Unless otherwise noted, [address] all lab tests performed by: Division of Pathology and Laboratory Medicine [facility] [place] Hemoglobin A1c (03/19/2021 1:29 PM CDT) Pathologist Sig [facility] A1C 5.1 4.3 - 5.6 % [facility] Comment: [facility] HbA1c values >=6.5% are diagnostic of diabetes mellitu s. Diagnosis should be confirmed by repeat testing. Therapeutic Action suggested: >8.0% HbA1c; Goal of therapy: <7.0% HbA1c Specimen Blood Performing Organization Address [facility] Phon e Number [facility] Unless otherwise noted, [address] all lab tests performed by: Division of Pathology and Laboratory Medicine [facility] [place] OSI PET CT Skull to Mid Thigh (01/08/2021 5:39 PM CDT)Only the most recent of2 resultswithin the time period is included. Specimen Narrative Systemgenerated, Documentation - 021 5:40 PM CDT Study acquired at another institution. For comparison only. No MD [place] originated interpretation requested or a vailable. after 06/16/2020 Insurance Payer Benefit Plan / Subscriber ID Effective Dates Phone Addre ss Type Group HUMANA HUMANA CHOICE [id number] 2021-Nilo [address] [address] Medicare [place] [address] Vinicio Hernández Personal/Family Self [address] (Home) [address] [place] , ([place]) [place] [address] Advance Directives Code Status Date Activated Date Inactivated Comments Full Code 04/01/2021 7:40 AM 04/04/2021 8:13 PM Care Teams Lodge Officer Relationship Specialty Start Date End Date Coby De Anda MD PCP - External Oncology 01/30/21 Referring (Work) Jarett Conteh MD PCP - General Gastrointestinal Medical 02/16/21 [facility] [place] [address] Cindy Blanco PCP - External Follow Hematology and Oncology 03/30/[address] A [place], [place] [id number]
--- OUTSIDE RECORDS SUMMARY | 2021-06-16 19:00 | XMS REPORT | Continuity of Care Document ---
:1950 Author Organization [facility] t Address [address] [place] [address] Care Team Providers Name Role Phone [phone] Primary Care Physician Unavailable SYSTEM, NOT IN Attending Clinician Unavailable Medhat CALLE Attending Clinician Unavailable ANGELA Attending Clinician Unavailable Michel CANO Attending Clinician Unavailable Medhat Osman Attending Clinician Yady TAVARES Attending Clinician Nilsa CANO Attending Clinician YADY Attending Clinician Unavailable RADHA Attending Clinician Unavailable Zaki TAVARES Attending Clinician Krysten TAVARES V. Attending Clinician Adilene Roberts MD Attending Clinician Radha TAVARES Attending Clinician Jayro RT, L Attending Clinician Unavailable Avery TAVARES Attending Clinician Cecil RN, F Attending Clinician Unavailable Herminio CANO, Aislinn Attending Clinician Unavailable Herminio RN Attending Clinician Unavailable Medhat ROLLINS Attending Clinician Unavailable Andres Foster RPH Attending Clinician Yakelin FOSTER Admitting Clinician Unavailable Payers Payer Name Policy Type Policy Number Effective Date Expiration Date S vika HUMANHeidy CHOICE [id number] 2021 MEDICARE PPO 00:00:00 UHC MEDICARE [id number] 2020 ADVANTAGE 00:00:00 Problems Condition Condition Condition Status Onset Resolution Last Treating Co mments Source Name Details Category Date Date Treatment Clinician Date Encounter Encounter Disease Active 2020-07 MD for for 0-07 Anderso antineopla antineopla 00:00: n stic chemo stic chemo 00 Encounter Encounter Disease Active 2020-07 MD for for 0-07 Anderso examinatio examinatio 00:00: n n prior to n prior to 00 antineopla antineopla stic stic chemothera chemothera py py Encounter Encounter Disease Active 2020-07 for for 0-07 Anderso antineopla antineopla 00:00: n stic stic 00 immunother immunother apy apy Fever Fever Disease Active MD 04-01 Anderso 00:00: n 00 Hyperbilir Hyperbilir Disease Active M D ubinemia ubinemia 04-01 Prabhakar o 00:00: n 00 Normocytic Normocytic Disease Active M D anemia anemia 04-01 Anderso 00:00: n 00 Thrombocyt Thrombocyt Disease Active M D openia openia 04-01 Anderso 00:00: n 00 Hyposmolal Hyposmolal Disease Active M D ity and/or ity and/or 04-01 An derso hyponatrem hyponatrem 00:00: n ia ia 00 Hepatic Hepatic Disease Active fibrosis, fibrosis, 03-19 Ton rso advanced advanced 00:00: n fibrosis fibrosis 00 Portal Portal Disease Active vein vein 03-19 Anderso thrombosis thrombosis 00:00: n 00 Hepatocell Hepatocell Disease Active M D ular ular 03-18 Anderso carcinoma carcinoma 00:00: n 00 Esophageal Esophageal Disease Active Overview : 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 Formattin g of this note might be different from the original. 03/2017 EGD, Dr Castano, Grade 1 varices not banded, repeat 1 yearForma tting of this note might be different from the original. 03/2017 EGD, Dr Castano, Grade 1 varices not banded, repeat 1 year Chronic Chronic Disease Active liver liver 03-31 Anderso disease disease 00:00: n 00 Hypertensi Hypertensi Disease Active Overview : ve ve 2-15 Formattin Andgigio disorder disorder 00:00: g of this n 00 note might be different from the original. Formattin g of this note might be different from the original. ACEI + DiureticF ormatting of this note might be different from the original. 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 Formattin g of this note might be different from the original. Treated with Harvoni.F ormatting of this note might be different from the original. Treated with Harvoni. Allergies, Adverse Reactions, Alerts This patient has no known allergies or adverse reactions. Family History Family Member Diagnosis Comments Start Date Stop Date Source Natural mother Breast cancer MD Ton sauceda Social History Social Habit Start Date Stop Date Quantity Comments Source History of tobacco Cigarette Smoker MD Orosco use History [facility] MD Orosco Alcohol Frequency History [facility] MD [place]o Alcohol Std Drinks History [facility] MD [place]rosco Alcohol Binge Alcohol intake 2021-05-18 2021-05-18 Current drinker of MD Orosco 00:00:00 00:00:00 alcohol (finding) Cigarettes smoked 2021-03-19 2021-03-19 MD Ton sauceda current (pack per 00:00:00 00:00:00 day) - Reported Cigarette 2021-03-19 2021-03-19 MD Orosco pack-years 00:00:00 00:00:00 Tobacco use and 2021-03-19 2021-03-19 Smokeless tobacco MD Orosco exposure 00:00:00 00:00:00 non-user History SDMA 2021-03-19 2021-03-19 None since 1997, Alcohol Comment 00:00:00 00:00:00 drank more frequently in early adulthood Tobacco Comment 2021-03-19 2021-03-19 Quit 20 years ago MD Orosco 00:00:00 00:00:00 Sex Ass[birth year] At [birth year] M MD [place] on 00:00:00 00:00:00 Smoking Status Start Date Stop Date Source Ex-smoker 2021-03-19 00:00:00 2021-03-19 00:00:00 MD Avelar son Medications Ordered Filled Start Stop Current Ordering Indication Dosage Frequency Signature Comments Components Source Medication Medication Date Date Medication? Clinician (SIG) Name Name ascorbic 2020-07 Yes 1{tbl} Take 1 MD acid, -09 tablet by Anderso vitamin C, 12:14: mouth 3 n (VITAMIN C) 34 (three) 1000 mg times a tablet day. cholecalcif 2020-07 Yes 2000U Take 2,000 MD edward, 1-09 Units by Anderso vitamin D3, 12:14: mouth. n 25 mcg 34 (1,000 unit) tablet milk 2020-07 Yes 500mg Take 500 MD thistle 500 1-09 mg by Anderso mg cap 12:14: mouth n 34 twice daily. guaiFENesin 2020-07 Yes Cough at 100mg Take 5 mL MD (ROBITUSSIN 09 rest (100 mg) Ton rso ) 100 mg/5 00:00: <Cough; by mouth 3 n mL syrup 00 Acute> (three) times a day as needed for cough or congestion . HYDROcodone 2020-07- No Cough at 5mL Take 5 mL MD -homatropin 07-19 1109 rest by mouth And erso e (HYCODAN) 00:00: 00:00 <Cough; every 6 n 5 mg-1.5 00 :00 Acute> (six) mg/5 mL hours as syrup needed for cough. turmeric, 2020-07 Yes 1{packe Take 1 MD bulk, 100 % 0-07 t} packet by And erso powd 09:59: mouth at n 45 bedtime. doxycycline 2020- No Febrile 100mg Take 1 MD (Vibramycin 9-25 09-29 neutropenia capsule Anderso ) 100 MG 00:00: 04:59 (100 mg) n capsule 00 :00 by mouth twice daily for 3 days. amoxicillin No Febrile 500mg Take 1 MD -clavulanat 9-29 neutropenia tablet Anderso e 00:00: 04:59 (500 mg) n (Augmentin) 00 :00 by mouth 500 mg-125 twice mg per daily for tablet 3 days. ondansetron No Hepatocellu 8mg Take 1 MD (Zofran) 8 9-15 11-09 lar tablet (8 And erso mg tablet 00:00: 00:00 carcinoma mg) by n 00 :00 mouth every 8 (eight) hours as needed for nausea or vomiting. oxyCODONE Yes Pain due to 5mg Take 1 MD (ROXICODONE 9-14 neoplastic tablet (5 Anderso ) 5 mg 00:00: disease mg) by n immediate 00 mouth release every 6 tablet (six) hours as needed for moderate pain. ALPRAZolam Yes 1 TABLET MD (XANAX) 1 6-22 NIGHTLY Anderso mg tablet 00:00: n 00 lisinopril No 40mg Take 40 mg MD (PRINIVIL,Z 4-13 11-09 by mouth And erso ESTRIL) 40 00:00: 00:00 daily. n mg tablet 00 :00 chlorthalid Yes 25mg Take 25 mg MD one 2-04 by mouth Anderso (HYGROTON) 00:00: daily. n 25 mg 00 tablet oxyCODONE No 5mg Take 5 mg MD (ROXICODONE 1-07 09-14 by mouth And erso ) 5 mg 00:00: 00:00 every 6 n immediate 00 :00 (six) release hours as tablet needed. potassium 2018-07 Yes 10meq Take 10 MD chloride 2-09 mEq by Anderso (K-DUR,KLOR 00:00: mouth 3 n -CON M) 10 00 (three) mEq tablet times a day. Immunizations Ordered Immunization Filled Immunization Date Status Commen ts Source Name Name Influenza, 2020-04-14 Completed MD Orosco Quadrivalent 00:00:00 Influenza Split High 2020-04-14 Completed MD Moody nderson Dose Preservative Free 00:00:00 IM Influenza, 2019-03-26 Completed MD [place]rosco Quadrivalent 00:00:00 Influenza, Unspecified 2019-03-26 Completed MD Orosco 00:00:00 Tdap 2018-11-06 Completed MD Orosco 00:00:00 Pneumococcal 2018-07-21 Completed MD Orosco Polysaccharide 00:00:00 Influenza, Unspecified 2018-04-03 Completed MD Orosco 00:00:00 Influenza Split High 2018-03-26 Completed MD Heidy siegel Dose Preservative Free 00:00:00 IM Influenza, 2017-03-19 Completed MD [place]o Quadrivalent 00:00:00 Pneumococcal Conjugate 2016-11-08 Completed MD Orosco 13-Valent 00:00:00 Influenza, 2016-04-13 Completed MD Orosco Quadrivalent 00:00:00 Influenza, 2015-05-21 Completed MD Orosco Quadrivalent 00:00:00 Influenza TIV (IM) 2015-05-21 Completed 00:00:00 Zoster, Unspecified 2015-05-14 Completed MD Anna montelongo 00:00:00 Influenza, 2014-04-26 Completed MD [place]o Quadrivalent 00:00:00 Influenza Whole 2013-03-27 Completed MD [place] on 00:00:00 Influenza Whole 2012-04-15 Completed MD [place] on 00:00:00 Influenza, 2010-05-19 Completed MD Orosco Quadrivalent 00:00:00 Rabies, Intramuscular 2003-07-12 Completed MD [place]rosco 00:00:00 Typhoid, Unspecified 2003-07-12 Completed MD Heidy siegel 00:00:00 Vital Signs Vital Name Observation Time Observation Value Comments Source Systolic blood pressure 2021-04-16 17:45:00 133 mm[Hg] MD Orosco Diastolic blood pressure 2021-04-16 17:45:00 76 mm[Hg] MD Orosco Heart rate 2021-04-16 17:45:00 66 /min MD Valentino shoemaker Body temperature 2021-04-16 17:45:00 37.06 Vee MD Heidy siegel Respiratory rate 2021-04-16 17:45:00 18 /min MD Heidy siegel Body weight 2021-04-16 15:56:32 71 kg MD Valentino shoemaker BMI 2021-04-16 15:56:32 24.98 kg/m2 MD Valentino shoemaker Oxygen saturation in 2021-04-16 15:56:32 96 /min MD Orosco Arterial blood by Pulse oximetry Body height 2021-04-01 11:27:34 168.6 cm Valentino son Procedures Procedure Date / Time Performed Performing Clinician [facility] e COMPREHENSIVE METABOLIC PANEL 2021-04-16 12:46:00 Braulio Rollins MD COMPLETE BLOOD COUNT W/ 2021-04-16 12:46:00 Suzie Rollins MD DIFFERENTIAL GLUCOSE LEVEL 2021-04-16 12:46:00 Suzie Rollins MD Andgigio francine BLOOD UREA NITROGEN 2021-04-16 12:46:00 Suzie Rollins MD And erson ELECTROLYTE PANEL 2021-04-16 12:46:00 Suzie Rollins MD Valentinoemily shoemaker SERUM CREATININE 2021-04-16 12:46:00 Suzie Rollins MD Prabhakar on .GLOMERULAR FILTRATION RATE 2021-04-16 12:46:00 Suzie Rollins MD CALCIUM LEVEL TOTAL 2021-04-16 12:46:00 Suzie Rollins MD And erson ALBUMIN LEVEL 2021-04-16 12:46:00 Suzie Rollins MD Andgigio francine ALKALINE PHOSPHATASE 2021-04-16 12:46:00 Suzie Rollins MD ALANINE AMINOTRANSFERASE 2021-04-16 12:46:00 Suzie Rollins ASPARTATE AMINOTRANSFERASE 2021-04-16 12:46:00 Suzie Rollins MD TOTAL PROTEIN 2021-04-16 12:46:00 Suzie Rollins MD Andgigio francine FRACTIONATED BILIRUBIN 2021-04-16 12:46:00 Suzie Rollins MD Results CBC 2021-04-16 12:46:00 Suzie Rollins MD Andgigio francine MANUAL DIFFERENTIAL 2021-04-16 12:46:00 Suzie Rollins MD And erson US RENAL 2021-04-04 21:33:36 Josee Suggs MD ADENOVIRUS QUANTITATIVE URINE 2021-04-04 18:03:00 Maria C Suggs MD TRANSFUSE PLATELETS 2021-04-04 16:28:00 Jim Pete URINE CULTURE 2021-04-04 13:13:00 Latiff, Jim montelongo BKV QUANT, URINE 2021-04-04 13:13:00 Latiff, Jim siegel URINALYSIS WITH MICROSCOPIC 2021-04-04 13:13:00 Latiff, Attila Orosco IF INDICATED CALCIUM LEVEL URINE 2021-04-04 13:13:00 Latiff, Jim [place]rosco CREATININE URINE, RANDOM 2021-04-04 13:13:00 Latiff, Nell [place]rosco URINALYSIS MICROSCOPIC 2021-04-04 13:13:00 Latiff, Jim Orosco PREPARE PLATELETS 2021-04-04 09:55:00 Latiff, Jim [place]rosco PLT PRODUCT READY FOR PLANTING MATERIAL REMOVER 2021-04-04 09:55:00 MD Kwesi Flores MRI BRAIN W WO CONTRAST 2021-04-04 09:37:00 Josee Suggs MD GENERAL LABORATORY ADD ON 2021-04-04 08:37:00 Latiff, Veda Orosco TEST COMPREHENSIVE METABOLIC PANEL 2021-04-04 05:52:00 Maria C Suggs MD COMPLETE BLOOD COUNT W/ 2021-04-04 05:52:00 Monse Gaspar MD DIFFERENTIAL FIBRINOGEN ACTIVITY 2021-04-04 05:52:00 Jim Pete APTT 2021-04-04 05:52:00 KitiffJim MD PROTHROMBIN TIME 2021-04-04 05:52:00 Jim Pete MD GLUCOSE LEVEL 2021-04-04 05:52:00 Corbin Roberts MD And kun Head BLOOD UREA NITROGEN 2021-04-04 05:52:00 Corbin Roberts MD J ELECTROLYTE PANEL 2021-04-04 05:52:00 Corbin Roberts MD SERUM CREATININE 2021-04-04 05:52:00 Corbin Roberts MD .GLOMERULAR FILTRATION RATE 2021-04-04 05:52:00 Aislinn Roberts MD CALCIUM LEVEL TOTAL 2021-04-04 05:52:00 Corbin Roberts MD ALBUMIN LEVEL 2021-04-04 05:52:00 Corbin Roberts MD And erson J ALKALINE PHOSPHATASE 2021-04-04 05:52:00 Corbin Roberts ALANINE AMINOTRANSFERASE 2021-04-04 05:52:00 Raymundo Roberts MD ASPARTATE AMINOTRANSFERASE 2021-04-04 05:52:00 Jeffrey Roberts MD TOTAL PROTEIN 2021-04-04 05:52:00 Corbin Roberts MD And erson J FRACTIONATED BILIRUBIN 2021-04-04 05:52:00 Corbin Roberts MD Results CBC 2021-04-04 05:52:00 Monse Gaspar MD Anderso n MANUAL DIFFERENTIAL 2021-04-04 05:52:00 Monse Gaspar MD And erson MAGNESIUM LEVEL 2021-04-04 05:52:00 Corbin Roberts MD And erson J PHOSPHORUS LEVEL 2021-04-04 05:52:00 Corbin Roberts MD NC DIAGNOSTIC LUMBAR SPINAL 2021-04-03 22:34:48 Josee Suggs MD P[employer] CULTURE W/ SMEAR 2021-04-03 22:14:00 Josee Suggs MD CSF CULTURE 2021-04-03 22:14:00 Josee Suggs MD FUNGUS CULTURE W/ SMEAR 2021-04-03 22:14:00 Josee Suggs MD ADENOVIRUS QUANTITATIVE , CSF 2021-04-03 22:14:00 Maria C Suggs MD CELL COUNT W/ DIFF 2021-04-03 22:12:00 Josee Suggs MD CEREBROSPINAL FLUID PROTEIN CEREBROSPINAL FLUID 2021-04-03 22:12:00 Josee Suggs MD GLUCOSE CEREBROSPINAL FLUID 2021-04-03 22:12:00 Josee Suggs MD CRYPTOCOCCAL ANTIGEN 2021-04-03 22:12:00 Josee Suggs MD MENINGITIS-ENCEPHALITIS PANEL 2021-04-03 22:12:00 MD Kwesi Flores Herve MENINGITIS-ENCEPHALITIS 2021-04-03 22:12:00 Shakira Garcia MULTIPLEX PANEL PATH REVIEW Herve CRYPTOCOCCAL ANTIGEN PATH 2021-04-03 22:12:00 MD Kwesi Garcia REVIEW Herve TRANSFUSE PLATELETS 2021-04-03 22:00:00 Josee Suggs TYPE AND SCREEN 2021-04-03 18:54:00 Josee Suggs MD BASIC METABOLIC PANEL, 2021-04-03 18:54:00 Josee Suggs MD CALCIUM TOTAL GLUCOSE LEVEL 2021-04-03 18:54:00 MD Prabhakar Garcia on Herve BLOOD UREA NITROGEN 2021-04-03 18:54:00 MD Anna Garcia ELECTROLYTE PANEL 2021-04-03 18:54:00 MD Ton Garcia rson Herve SERUM CREATININE 2021-04-03 18:54:00 MD And Radhaer son Herve .GLOMERULAR FILTRATION RATE 2021-04-03 18:54:00 MD Kwesi Martinez CALCIUM LEVEL TOTAL 2021-04-03 18:54:00 MD Anna Garcia Herve ABORH 2021-04-03 18:54:00 MD Prabhakar Garcia on Herve ANTIBODY SCREEN 2021-04-03 18:54:00 MD Prabhakar Garcia on Herve CLOT EXPIRATION DATE 2021-04-03 18:54:00 MD Heidy Garcia nderson Herve TMP INTERPRETATION ANTIBODY 2021-04-03 18:54:00 MD Kwesi Martinez SCREEN NEGATIVE Herve CRYPTOCOCCAL ANTIGEN, SERUM 2021-04-03 18:53:00 Josee Suggs MD CRYPTOCOCCAL ANTIGEN, SERUM 2021-04-03 18:53:00 MD Kwesi Martinez PATH REVIEW Herve CYTOLOGY NON-STRING CUTTER 2021-04-03 18:51:00 Josee Suggs MD nderson INTERPRETATION PREPARE PLATELETS 2021-04-03 15:17:00 Josee Suggs MD GENERAL LABORATORY ADD ON 2021-04-03 11:29:00 MD Kwesi Garcia TEST Herve CT HEAD WO CONTRAST 2021-04-03 10:35:51 Josee Suggs COMPLETE BLOOD COUNT W/ 2021-04-03 07:26:00 Monse Gaspar MD DIFFERENTIAL Results CBC 2021-04-03 07:26:00 Monse Gaspar MD Andden escamilla MANUAL DIFFERENTIAL 2021-04-03 07:26:00 Monse Gaspar MD And erson BLOODCULTURE 2021-04-03 05:56:00 Monse Gaspar MD Anderso n COMPREHENSIVE METABOLIC PANEL 2021-04-03 05:56:00 Maria C Suggs MD GLUCOSE LEVEL 2021-04-03 05:56:00 Corbin Roberts MD And ersbryan J BLOOD UREA NITROGEN 2021-04-03 05:56:00 Corbin Roberts MD J ELECTROLYTE PANEL 2021-04-03 05:56:00 Corbin Roberts MD J SERUM CREATININE 2021-04-03 05:56:00 Corbin Roberts MD .GLOMERULAR FILTRATION RATE 2021-04-03 05:56:00 Aislinn Roberts MD CALCIUM LEVEL TOTAL 2021-04-03 05:56:00 Corbin Roberts MD ALBUMIN LEVEL 2021-04-03 05:56:00 Corbin Roberts MD And ersbryan J ALKALINE PHOSPHATASE 2021-04-03 05:56:00 Corbin Roberts J ALANINE AMINOTRANSFERASE 2021-04-03 05:56:00 Raymundo Roberts MD J ASPARTATE AMINOTRANSFERASE 2021-04-03 05:56:00 Jeffrey Roberts MD J TOTAL PROTEIN 2021-04-03 05:56:00 Corbin Roberts MD And kun Head FRACTIONATED BILIRUBIN 2021-04-03 05:56:00 Corbin Roberts MD MAGNESIUM LEVEL 2021-04-03 05:56:00 MD Radha Prabhakar on Herve PHOSPHORUS LEVEL 2021-04-03 05:56:00 MD Radha Valentino son Herve VANCOMYCIN LEVEL TROUGH 2021-04-02 20:41:00 Shakira Garcia COMPLETE BLOOD COUNT W/ 2021-04-02 09:03:00 Jose Haines MD DIFFERENTIAL MAGNESIUM LEVEL 2021-04-02 09:03:00 Jose Haines MD PHOSPHORUS LEVEL 2021-04-02 09:03:00 Jose Haines MD COMPREHENSIVE METABOLIC PANEL 2021-04-02 09:03:00 Maria C Suggs MD OSMOLALITY 2021-04-02 09:03:00 Josee Suggs MD derson Results CBC 2021-04-02 09:03:00 Jose Haines MD MANUAL DIFFERENTIAL 2021-04-02 09:03:00 Jose Haines MD [facility] GLUCOSE LEVEL 2021-04-02 09:03:00 Corbin Roberts MD And kun Head BLOOD UREA NITROGEN 2021-04-02 09:03:00 Corbin Roberts MD J ELECTROLYTE PANEL 2021-04-02 09:03:00 Corbin Roberts MD SERUM CREATININE 2021-04-02 09:03:00 Corbin Roberts MD .GLOMERULAR FILTRATION RATE 2021-04-02 09:03:00 Aislinn Roberts MD CALCIUM LEVEL TOTAL 2021-04-02 09:03:00 Corbin Roberts MD ALBUMIN LEVEL 2021-04-02 09:03:00 Corbin Roberts MD And ersbryan Head ALKALINE PHOSPHATASE 2021-04-02 09:03:00 Corbin Roberts J ALANINE AMINOTRANSFERASE 2021-04-02 09:03:00 Raymundo Roberts MD J ASPARTATE AMINOTRANSFERASE 2021-04-02 09:03:00 Jeffrey Roberts MD J TOTAL PROTEIN 2021-04-02 09:03:00 Corbin Roberts MD And erson J FRACTIONATED BILIRUBIN 2021-04-02 09:03:00 Corbin Roberts MD J SODIUM URINE 2021-04-01 20:17:00 Josee Suggs MD derson CREATININE URINE, RANDOM 2021-04-01 20:17:00 Josee Suggs MD OSMOLALITY URINE 2021-04-01 20:17:00 oJsee Suggs MD nderson UREA NITROGEN URINE 2021-04-01 20:17:[address] ABDOMEN PELVIS W CONTRAST 2021-04-01 10:10:25 Jose Haines MD URINE CULTURE 2021-04-01 09:58:00 Jose Haines MD URINALYSIS WITH MICROSCOPIC 2021-04-01 09:58:00 Jose Haines MD IF INDICATED LACTIC ACID, VENOUS 2021-04-01 08:08:00 Jose Haines MD Valentino son BLOODCULTURE 2021-04-01 07:49:00 Jose Haines MD RESPIRATORY VIRAL PANEL + 2021-04-01 07:49:00 Jose Haines MD COVID-19, NASOPHARYNGEAL SWAB MAGNESIUM LEVEL 2021-04-01 07:49:00 Jose Haines MD PHOSPHORUS LEVEL 2021-04-01 07:49:00 Jose Haines MD COMPREHENSIVE METABOLIC PANEL 2021-04-01 07:49:00 Elvira Haines MD AMYLASE LEVEL 2021-04-01 07:49:00 Jose Haines MD LIPASE LEVEL 2021-04-01 07:49:00 Jose Haines MD COMPLETE BLOOD COUNT W/ 2021-04-01 07:49:00 Jose Haines MD nderson DIFFERENTIAL PROTHROMBIN TIME 2021-04-01 07:49:00 Jose Haines MD APTT 2021-04-01 07:49:00 Jose Haines MD TYPE AND SCREEN 2021-04-01 07:49:00 Jose Haines MD CONFIRM ABORH TYPE 2021-04-01 07:49:00 Jose Haines MD on BLOOD UREA NITROGEN 2021-04-01 07:49:00 Jose Haines MD Valentino son ELECTROLYTE PANEL 2021-04-01 07:49:00 Jose Haines MDo n SERUM CREATININE 2021-04-01 07:49:00 Jose Haines MD .GLOMERULAR FILTRATION RATE 2021-04-01 07:49:00 Jose Haines MD CALCIUM LEVEL TOTAL 2021-04-01 07:49:00 Jose Haines MD Valentino son ALBUMIN LEVEL 2021-04-01 07:49:00 Jose Haines MD ALKALINE PHOSPHATASE 2021-04-01 07:49:00 Jose Haines MD rson ALANINE AMINOTRANSFERASE 2021-04-01 07:49:00 Jose Haines MD ASPARTATE AMINOTRANSFERASE 2021-04-01 07:49:00 Jose Haines TOTAL PROTEIN 2021-04-01 07:49:00 Jose Haines MD FRACTIONATED BILIRUBIN 2021-04-01 07:49:00 Jose Haines MD derson Results CBC 2021-04-01 07:49:00 Jose Haines MD MANUAL DIFFERENTIAL 2021-04-01 07:49:00 Jose Haineser son ABORH 2021-04-01 07:49:00 Jose Haines MD ANTIBODY SCREEN 2021-04-01 07:49:00 Jose Haines MD GLUCOSE LEVEL 2021-04-01 07:49:00 Jose Haines MD CLOT EXPIRATION DATE 2021-04-01 07:49:00 Corbin Roberts J TMP INTERPRETATION ANTIBODY 2021-04-01 07:49:00 Jose Haines MD SCREEN NEGATIVE URINALYSIS WITH MICROSCOPIC 2021-03-26 12:56:40 Jarett Conteh MD IF INDICATED COMPREHENSIVE METABOLIC PANEL 2021-03-26 11:57:04 Jarett Conteh MD COMPLETE BLOOD COUNT W/ 2021-03-26 11:57:04 Jarett Conteh MDrson DIFFERENTIAL FREE T3 2021-03-26 11:57:04 Jarett Conteh MD FREE THYROXINE 2021-03-26 11:57:04 Jarett Conteh MD THYROID STIMULATING HORMONE 2021-03-26 11:57:04 Jarett Conteh MD ALPHA FETOPROTEIN TUMOR 2021-03-26 11:57:04 Jarett Conteh MDon MARKER GLUCOSE LEVEL 2021-03-26 11:57:04 Jarett Conteh MD BLOOD UREA NITROGEN 2021-03-26 11:57:04 Jarett Conteh MD ELECTROLYTE PANEL 2021-03-26 11:57:04 Jarett Conteh MD n SERUM CREATININE 2021-03-26 11:57:04 Jarett Conteh MD .GLOMERULAR FILTRATION RATE 2021-03-26 11:57:04 Jarett Conteh MD CALCIUM LEVEL TOTAL 2021-03-26 11:57:04 Jarett Conteh MD ALBUMIN LEVEL 2021-03-26 11:57:04 Jarett Conteh MD ALKALINE PHOSPHATASE 2021-03-26 11:57:04 Jarett Conteh MD rsbryan ALANINE AMINOTRANSFERASE 2021-03-26 11:57:04 Jarett Conteh MD ASPARTATE AMINOTRANSFERASE 2021-03-26 11:57:04 Jarett Conteh TOTAL PROTEIN 2021-03-26 11:57:04 Jarett Conteh MD FRACTIONATED BILIRUBIN 2021-03-26 11:57:04 Jarett Conteh MD derson Results CBC 2021-03-26 11:57:04 Jarett Conteh MD MANUAL DIFFERENTIAL 2021-03-26 11:57:[address] CHEST ABDOMEN PELVIS W WO 2021-03-23 19:10:00 Suzie Rollins MD CONTRAST ALPHA FETOPROTEIN TUMOR 2021-03-19 18:29:00 Suzie Rollins MD MARKER COMPLETE BLOOD COUNT W/ 2021-03-19 18:29:00 Suzie Rollins MD DIFFERENTIAL CANCER ANTIGEN 19-9 2021-03-19 18:29:00 Suzie Rollins MD And kun COMPREHENSIVE METABOLIC PANEL 2021-03-19 18:29:00 Braulio Rollins MD LACTATE DEHYDROGENASE 2021-03-19 18:29:00 Suzie Rollins MDrson MAGNESIUM LEVEL 2021-03-19 18:29:00 Suzie Rollins MD PHOSPHORUS LEVEL 2021-03-19 18:29:00 Suzie Rollins MD on PROTHROMBIN TIME 2021-03-19 18:29:00 Suzie Rollins MD on APTT 2021-03-19 18:29:00 Suzie Rollins MD GROWTH HORMONE 2021-03-19 18:29:00 Suzie Rollins MD INSULIN LIKE GROWTH FACTOR 1 2021-03-19 18:29:00 Suzie Rollins MD THYROID STIMULATING HORMONE 2021-03-19 18:29:00 Szuie Rollins MD FREE THYROXINE 2021-03-19 18:29:00 Suzie Rollins MD HEPATITIS A ANTIBODY IGG 2021-03-19 18:29:00 Suzie Rollins HEPATITIS B SURFACE ANTIGEN, 2021-03-19 18:29:00 Suzie Rollins MD SERUM HEPATITIS B SURFACE ANTIBODY, 2021-03-19 18:29:00 Braulio Rollins MD SERUM HEPATITIS B CORE ANTIBODY 2021-03-19 18:29:00 Suzie Rollins MD HEPATITIS C VIRUS ANTIBODY 2021-03-19 18:29:00 Suzie Rollins MD HEPATITIS C VIRUS RNA 2021-03-19 18:29:00 Suzie Rollins MD DETECT/QUANT, SERUM HEPATITIS E VIRUS BY 2021-03-19 18:29:00 Suzie Rollins MDson QUANTITATIVE PCR HIUP HIV-1/2 ANTIGEN AND 2021-03-19 18:29:00 Suzie Rollins MD And erson ANTIBODIES, FOURTH GENERATION HEMOGLOBIN A1C 2021-03-19 18:29:00 Suzie Rollins MD Anderso n Results CBC 2021-03-19 18:29:00 Suzie Rollins MD Andgigio n MANUAL DIFFERENTIAL 2021-03-19 18:29:00 Suzie Rollins MD And erson GLUCOSE LEVEL 2021-03-19 18:29:00 Suzie Rollins MD Anderso n BLOOD UREA NITROGEN 2021-03-19 18:29:00 Suzie Rollins MD And erson ELECTROLYTE PANEL 2021-03-19 18:29:00 Suzie Rollins MD Valentino son SERUM CREATININE 2021-03-19 18:29:00 Suzie Rollins MD Prabhakar on .GLOMERULAR FILTRATION RATE 2021-03-19 18:29:00 Suzie Rollins MD CALCIUM LEVEL TOTAL 2021-03-19 18:29:00 Suzie Rollins MD And erson ALBUMIN LEVEL 2021-03-19 18:29:00 Suzie Rollins MD Anderso francine ALKALINE PHOSPHATASE 2021-03-19 18:29:00 Suzie Rollins MD ALANINE AMINOTRANSFERASE 2021-03-19 18:29:00 Suzie Rollins ASPARTATE AMINOTRANSFERASE 2021-03-19 18:29:00 Suzie Rollins MD TOTAL PROTEIN 2021-03-19 18:29:00 Suzie Rollins MD Andden escamilla FRACTIONATED BILIRUBIN 2021-03-19 18:29:00 Suzie Rollins MD HEPATITIS B CORE TOTAL 2021-03-19 18:29:00 Suzie Rollins MD ANTIBODY HEPATITIS B SURFACE AG 2021-03-19 18:29:00 Suzie Rollins MD W/CONFIRM TMP HIV 1/2 AG&AB PATH INTERP 2021-03-19 18:29:00 Braulio Rollins MD TMP HCVAB INTERP 2021-03-19 18:29:00 Suzie Rollins MD Prabhakar on OSI PET CT SKULL TO MID THIGH 2021-01-08 22:39:00 Jarett Conteh MD OSI PET CT SKULL TO MID THIGH 2020-10-23 17:46:00 Jarett Conteh MD Plan of Care Planned Activity Planned Date Details Comments Source Future Scheduled Test 2021-03-21 00:00:00 COVID-19 Vaccination (2 MD [place] - Moderna risk 4-dose series) [code = COVID-19 Vaccination (2 - Moderna risk 4-dose series)] Encounters Start End Encounter Admission Attending Care Care Encounter Source Date/Time Date/Time Type Type Clinicians Facility Department ID 2021-01-30 Outpatient SYSTEM, [facility] JESSICA [id number] 15:54:01 PROVIDER Prabhakar escamilla 2021-06-09 2021-06-09 ambulatory [facility] [id number] [facility] 2021-06-08 2021-06-08 ambulatory [facility] [id number] [facility] 2021-05-25 2021-05-25 ambulatory [facility] [id number] [facility] 2021-05-19 2021-05-19 Outpatient IGNACIO CALLE, JESSICA MDA [id number] 11:02:09 11:59:31 EMILIA escamilla 2021-05-18 2021-05-18 Outpatient IGNACIO MILLER, JESSICA MDA [id number] 09:36:51 09:55:37 SHAWN escamilla 2021-04-16 2021-04-16 Outpatient EL MDA MDA [id number] 07:21:02 23:59:00 Prabhakar escamilla 2021-04-16 2021-04-16 Outpatient EL YADY, JESSICA MDA [id number] 10:22:47 15:39:37 JARETT escamilla 2021-04-16 2021-04-16 Outpatient EL YADY JESSICA MDA [id number] 09:04:05 10:15:10 JARETT escamilla 2021-04-01 2021-04-04 Inpatient [facility] [id number] 02:33:00 18:13:00 Prabhakar WHITLEY 2021-04-04 2021-04-04 Inpatient REPLACED BY [facility] MDA [id number] MD 11:15:33 11:30:20 Prabhakar escamilla 2021-03-26 2021-03-26 Outpatient [facility] MDA [id number] 07:08:09 07:08:09 JARETT escamilla 2021-03-26 2021-03-26 Outpatient [facility] MDA [id number] MD 06:46:12 06:49:51 JARETT escamilla 2021-03-23 2021-03-23 Outpatient [facility] MDA [id number] MD 13:15:04 13:15:04 SUZIE escamilla 2021-03-19 2021-03-19 Outpatient [facility] MDA [id number] 12:00:00 23:59:00 SUZIE escamilla 2021-03-19 2021-03-19 Outpatient [facility] MDA [id number] MD 10:17:51 13:29:21 JARETT escamilla 2021-03-19 2021-03-19 Outpatient [facility] MDA [id number] 11:00:19 11:00:19 JARETT escamilla 2021-03-19 2021-03-19 Outpatient REPLACED BY [facility] MDA [id number] MD 10:08:51 10:09:39 Prabhakar escamilla 2021-02-23 2021-02-23 Outpatient [facility] MDA [id number] MD 17:39:19 17:39:19 JARETT escamilla Results Test Description Test Time Test Comments Results Result Comments Source AFB Culture w/Smear 2021-05-31 11:48:35 Test Item Value Reference Range Interpretation Comme nts Final Report (test code = 8488) No acid fast bacteria isolated at 8 weeks. Path Review - AFB (test code = 8477) Culture yield may be affected by sample quality, prior treatment, and transportation conditions....The results have been reviewed and electronically signed by Pathologist:Petr Mejia MD, PhD #[id number] Acid Fast Stain Truant (test code = No Acid Fast Bacilli seen in di rect smear 10547-1) LIZZY (test code = LIZZY) Cultures are held 8 weeks before finalization. MD OroscoFungus Culture w/Njjgl4224-47-85 20:36:20 Test Item Value Reference Range Interpretation Comments Final Report (test No fungus isolated at 4 code = 8488) weeks. Path Review - Fungus Culture yield may be (test code = 8479) affected by sample quality, prior treatment, and transportation conditions. The results have been reviewed and electronically signed by Pathologist:Sharad Stanford MD, PhD #[id number] Calcofluor Stain No Fungi seen in direct (test code = 658-5) smearTest performed by fluorescent stain methodology. LIZZY (test code = LIZZY) Cultures are held for 4 weeks before finalization. MD OroscoFractionated Ypfvjdxkf0037-71-76 13:52:14 Test Item Value Reference Range Interpretation Comments Bili Total (test code 1.8 mg/dL See_Comment H Indocy anine Green = 5096) (ICG) may cause falsely elevate d bilirubin resul ts. Total and direc t bilirubin must not be measured from s amples containing indo cyanine green. False el evation of total biliru bin can be seen in adrian ents with IgG concentrations above 28 g/L. [Autom ated message] The sy stem which generated this result transmit deirdre reference range : <=1.2. The refe rence range was not u sed to interpret this result as normal/abnor mal. Bili Direct (test code 1.0 mg/dL See_Comment H Indoc yanine Green = 5094) (ICG) may cause falsely elevate d bilirubin resul ts. Total and direc t bilirubin must not be measured from s amples containing indo cyanine green. [Automat ed message] The sy stem which generated this result transmit deirdre reference range : <=0.3. The refe rence range was not u sed to interpret this result as normal/abnor mal. Bili Indirect (test 0.8 mg/dL 0.0-0.9 code = 5095) Lab Interpretation Abnormal (test code = 56324-8) MD OroscoCalcium [id number] 13:52:13 Test Item Value Reference Range Interpretation Comments Calcium Lvl (test code = 5258) 9.0 mg/dL 8.4-10.2 KwesiAlbumin Mqowt2283-73-89 13:52:12 Test Item Value Reference Range Interpretation Comments Albumin Lvl (test code = 2.9 See_Comment L [A utomated message] 5673) The system [employer] generated this result transmitted ref erence range: 3.5 - 5. 2 gm/dL. The refe rence range was not u sed to interpret this result as normal/abnor mal. Lab Interpretation (test Abnormal code = 29155-6) MD OroscoAspartate Dprysslxmzxsdfgi6552-37-62 13:52:10 Test Item Value Reference Range Interpretation Comments AST (test code = 4731) 129 U/L See_Comment H [Aut omated message] The system [employer] generated this result transmitted ref erence range: <=40. Th e reference range was not used to int erpret this result as normal/abnormal . Lab Interpretation (test Abnormal code = 54334-3) MD OroscoGlomerular Filtration [id number] 13:52:09 Test Item Value Reference Range Interpretation Comments eGFR-AA (test code 106 See_Comment Normal eG FR: >= 60 = 8062) mL/min/1.73 m2N ote: The eGFR is calculated u sing the CKD-EPI equatio n. The eGFR declines with a ge. eGFR <60 mL/min/1.73 m2 is considered as "decreased". This equation should only be used for patients 18 and older. According to th e National Kidney Foundati on's Kidney Disease Outcome Quality Initiative (KDO QI) classification and 2012 Kidney Disease Improving Global Outcomes (KDIGO) Clinical Practi ce Guideline, the stage of CK D should be categorized bas ed on estimated GFR. Stage Description GFR mL/min/1.73 m21 Normal or high GFR >=902 Mildly decrease d GFR 60-893a M ildly to moderately decr eased GFR 45-593b Moderat levi to severely decrea sed GFR 30-444 Severely decreased GFR 15-295 Kid david failure <15 [Automa deirdre message] The system [employer] generated this result tra nsmitted reference range : >=60 mL/min/1.73 sq. m. The reference range was not used to interpret th is result as normal/abnormal . eGFR-SRINI (test code 91 See_Comment Normal e GFR: >= 60 = 8063) mL/min/1.73 m2N ote: The eGFR is calculated u sing the CKD-EPI equatio n. The eGFR declines with a ge. eGFR <60 mL/min/1.73 m2 is considered as "decreased". This equation should only be used for patients 18 and older. According to th e National Kidney Foundati on's Kidney Disease Outcome Quality Initiative (KDO QI) classification and 2012 Kidney Disease Improving Global Outcomes (KDIGO) Clinical Practi ce Guideline, the stage of CK D should be categorized bas ed on estimated GFR. Stage Description GFR mL/min/1.73 m21 Normal or high GFR >=902 Mildly decrease d GFR 60-893a M ildly to moderately decr eased GFR 45-593b Moderat levi to severely decrea sed GFR 30-444 Severely decreased GFR 15-295 Kid david failure <15 [Automa deirdre message] The system [employer] generated this result tra nsmitted reference range : >=60 mL/min/1.73 sq. m. The reference range was not used to interpret th is result as normal/abnormal . MD OroscoElectrolyte [id number] 13:52:08 Test Item Value Reference Range Interpretation Comments Sodium Lvl (test code = 133 See_Comment L [Au tomated message] 1721) The system [employer] generated this result transmitted ref erence range: 136 - 14 5 mEq/L. The refe rence range was not u sed to interpret this result as normal/abnor mal. Potassium Lvl (test code 4.2 See_Comment [A utomated message] = 4049) The system [employer] generated this result transmitted ref erence range: 3.5 - 5. 1 mEq/L. The refe rence range was not u sed to interpret this result as normal/abnor mal. Chloride (test code = 104 See_Comment [Auto mated message] 1702) The system [employer] generated this result transmitted ref erence range: 98 - 107 mEq/L. The refe rence range was not u sed to interpret this result as normal/abnor mal. CO2 (test code = 5227) 20 See_Comment L [Aut omated message] The system [employer] generated this result transmitted ref erence range: 22 - 29 mEq/L. The reference r alessandro was not used to interpret this result as normal/abnor mal. Anion Gap (test code = 9 See_Comment [Aut omated message] 8603) The system [employer] generated this result transmitted ref erence range: 4 - 14 m Eq/L. The reference r alessandro was not used to interpret this result as normal/abnor mal. Lab Interpretation (test Abnormal code = 91639-2) MD OroscoTotal [id number] 13:52:07 Test Item Value Reference Range Interpretation Comments Total Protein (test code = 7649) 9.3 g/dL 6.4-8.3 H Lab Interpretation (test code = Abnormal 17293-9) MD OroscoGlucose [id number] 13:52:06 Test Item Value Reference Range Interpretation Comments Glucose Level (test code 100 mg/dL 70-99 H Eff ective 02/04/16, = 5699) the glucose reference inter vals have been updat ed based on [place] an Diabetes Associ ation guidelines (Standards of Medical Care in Diabetes 2016. Diabetes Care 2 016; 39: S13-S22).Fa sting blood glucose:Normal: 70-99 mg/dLImpa ired fasting glucose (increased risk for diabetes or pre-diabetes): 100-125 mg/dLDiabetes mellitus: >/=1 26 mg/dL Random bl ood glucose:Normal: 70-199 mg/dLNot e: Random glucose >100 mg/dL is associ ated with increased risk for diabetes Lab Interpretation (test Abnormal code = 31363-6) MD OroscoAlkaline Grfoenjjnsl6003-83-91 13:52:05 Test Item Value Reference Range Interpretation Comments Alk Phos (test code = 4768) 272 U/L 40-129 H Lab Interpretation (test code = Abnormal 62785-8) MD OroscoEbclhnzmDHZ4995-25-49 13:52:04 Test Item Value Reference Range Interpretation Comments ALT (test code = 4705) 62 U/L See_Comment H [Aut omated message] The system [employer] generated this result transmitted ref erence range: <=41. Th e reference range was not used to int erpret this result as normal/abnormal . Lab Interpretation (test Abnormal code = 74329-0) MD Orosco.Serum Taiuiazzru9871-29-12 13:52:03 Test Item Value Reference Range Interpretation Comments Creatinine (test code = 5399) 0.77 mg/dL 0.67-1.17 FbwlaoywPAM4635-90-92 13:52:02 Test Item Value Reference Range Interpretation Comments BUN (test code = 5055) 17 mg/dL 6-23 MD OroscoJzbghjpbFhydbyliofvc1497-87-05 12:52:35 Test Item Value Reference Range Interpretation Comments Neutrophil % (test code = 62.1 % 42.0-66.0 6491) Lymphocyte % (test code = 12.5 % 24.0-44.0 L 6194) Monocyte % (test code = 19.6 % 2.0-7.0 H 6422) Eosinophil % (test code = 4.5 % 1.0-4.0 H 5520) Basophil % (test code = 0.9 % 0.0-1.0 5068) IGRE % (test code = 5958) 0.4 % 0.0-0.4 IG RE % count includes Metamyelocytes, Myelocytes, and Promyelocytes. Neutrophil Abs (test code 1.39 K/uL 1.70-7.30 L = 6492) Lymphocyte Abs (test code 0.28 K/uL 1.00-4.80 L = 6195) Monocyte Abs (test code = 0.44 K/uL 0.08-0.70 6423) Eosinophil Abs (test code 0.10 K/uL 0.04-0.40 = 5521) Basophil Abs (test code = 0.02 K/uL 0.00-0.10 5069) IG Abs (test code = 5954) 0.01 K/uL 0.00-0.04 Lab Interpretation (test Abnormal code = 40466-2) MD Orosco.QUP2620-04-60 12:52:24 Test Item Value Reference Range Interpretation Comments WBC (test code = 8034) 2.2 K/uL 4.0-11.0 L RBC (test code = 6932) 3.27 See_Comment L [Aut omated message] The system [employer] generated this result transmitted ref erence range: 4.50 - 6 .00 M/uL. The refer ence range was not u sed to interpret this result as normal/abnor mal. Hgb (test code = 5898) 11.3 See_Comment L [Aut omated message] The system [employer] generated this result transmitted ref erence range: 14.0 - 1 8.0 gm/dL. The refe rence range was not u sed to interpret this result as normal/abnor mal. Hct (test code = 5860) 32.6 % 40.0-54.0 L MCV (test code = 6222) 100 fL 82-98 H MCH (test code = 6220) 34.6 pg 27.0-31.0 H MCHC (test code = 6221) 34.7 See_Comment [Au tomated message] The system [employer] generated this result transmitted ref erence range: 31.0 - 3 6.0 gm/dL. The refe rence range was not u sed to interpret this result as normal/abnor mal. RDW-SD (test code = 56.4 fL 35.1-46.3 H 6972) RDW-CV (test code = 15.6 % 12.0-15.5 H 6971) Platelet count (test 60 K/uL 140-440 L code = 6832) MPV (test code = 6282) 8.6 fL 4.0-10.4 INRBC (test code = 0.0 % See_Comment The INRBC (instrument 5974) NRBC) value ref lects the enumeration of nucleated red b lood cells contained in a 200uL sampleof whole blood analyzed by the instrument. Thi s value maydiffer from the NRBC value repo rted in a manual differential,wh ich is based on a 100 cell differential. [Automated mess age] The system [employer] generated this result transmitted ref erence range: <=0.0. T he reference range was not used to int erpret this result as normal/abnormal . Lab Interpretation Abnormal (test code = 87688-6) [facility] Culture w/ Gram [id number] 19:42:30 Test Item Value Reference Range Interpretation Comments Final Report (test No growth code = 8488) Path Review (test The results have been code = 8492) reviewed and electronically signed by Pathologist:Sharad Stanford MD, PhD #[id number] Gram Stain Report Few WBC's seenNo organisms (test code = seen. 21023-0) MD Quevedo [id number] 19:33:41 Test Item Value Reference Range Interpretation Comments Final Report (test No growth code = 8488) Path Review - Immunity and antibiotic Bottle/Isolator use may render culture (test code = 8499) negative. Ongoing infection requires repeat culture. The results have been reviewed and electronically signed by Pathologist:Sharad Stanford MD, PhD #[id number] MD OroscoAdenovirus Quant, Nlfky6195-85-81 13:13:09 Test Item Value Reference Range Interpretation Comments ADV Not Detected Not Detected Assay Range: 1 52 copies/mL to Urine-Virac copies/mL 1.00E+10 copies /mLThe limit of or (test quantitation (L OQ) is 152 code = copies/mL. Lb ovirus 4693) DNAdetected bel ow the LOQ will be reported as Detected:<152 copies/mL.This test was developed and i ts performance characteristics determined by [employer]. It has not been cleared or approvedby the U.S. Food and D rug Administration. Results should be used inconju nction with clinical findin gs, and should not form the so lebasis for a diagnosis or tr eatment decision. Performe d At:[employer] [facility] [place] [address]Vacthwwygr Director: Riley Araujo Ph.D., BCL D (ABB)CLIA#: [id number] e: MD OroscoAdenovirus Quant, [id number] 12:57:40 Test Item Value Reference Range Interpretation Comments ADV Not Detected Not Detected Assay Range: 1 09 copies/mL to CSF-Viracor copies/mL 1.00E+10 copies /mLThe limit of (test code quantitation (L OQ) is 109 = 4686) copies/mL. Lb ovirus DNAdetected bel ow the LOQ will be reported as Detected:<109 copies/mL.This test was developed and i ts performance characteristics determined by [employer] [facility]. It has not been cleared or approvedby the U.S. Food and D [employer] Administration. Results should be used inconju nction with clinical findin gs, and should not form the so lebasis for a diagnosis or tr eatment decision. Performe d At:[employer] [facility] [place] [address]Gejhwjebtd Director: Riley Araujo Ph.D., GEOVANNY Tao (ABB)CLIA#: [id number] e: MD OroscoBKV Quant, [id number] 12:56:58 Test Item Value Reference Range Interpretation Comments BKV Not Detected Not Detected Assay Range: 5 00 copies/mL to Urine-Virac copies/mL 1.00E+10 copies /mLThis test was or (test developed and i ts performance code = characteristics determined by 4990) [employer]. It has not been cleared or approvedby the U.S. Food and D rug Administration. Results should be used inconju nction with clinical findin gs, and should not form the so lebasis for a diagnosis or tr eatment decision. Performe d At:[employer] [facility] [place] [address]Jtkjnvdqxt Director: Riley Araujo Ph.D., GEOVANNY Tao (ABB)CLIA#: [id number] e: MD Cueva [id number] 21:18:27 Test Item Value Reference Range Interpretation Comments Final Report (test No growth code = 8488) Path Review - Urine The results have been (test code = 8483) reviewed and electronically signed by Pathologist:Sharad Stanford MD, PhD #[id number] [facility] Non[facility]Culinary Manager Pttkwcnnkkobsx2239-96-87 21:06:21 Test Item Value Reference Range Interpretation Comments Gross Description (test k4ldxHLjFWGwrWD8OM code = 8709905332) WzXFFua7twt7OjfIXd cGFyXGpleHBhbmRcbm 84vKG1gQ79FV5rRJUw YgN6BYDddgX5Afc3FS OpTRPusHDeK731c0km e8uwgkGduHB8GTRvUD HbT0JhLR6sHSJobKIm V29bkKHvVPV0REPeMH QiwLVvKEPdEDC0WESg bWRxY5kmGILrEN6cmy dyMTgwMFxtYXJndDE0 AJOvpDLoB6WqKNQdUV wlEGNbjet9ClLwTj0p dGVyeTcyMFxwYXJke1 ojCFGqePJgWPY7JZhu eKUcFNWnFBToUEg1WD JkAJskmVUoZJ5mgBes GnekfKezx1RqpTNqJA lkIDUxMDAyIFxcZGIg D1WKBNFdKpZ4BKl6HM LzEKw5ZIxtX2XJGYSx PLR4FVJ8KwT5ZsB1BI r4RYICWq0mAAIlOAB0 PQL2BZS6YDS2ZXzsyV AyIFxcZmwgXFxmIEFy aWFsIFxcZnMgMTAgXF xxVjCfQB7cuXqrxGCk blxiXGZzMjAgQTpccG FyXGIwXGNmMSAxIERp ZmYgUXVpazsgMSBQYX IfJ7GtnV9xF9zpYXAv GARfryH5FD0mIjKqbM JvdGVjdHtcZmllbGR7 CMciGuvkhZ4flPYIXO RVPpuXCeqycuWmIX8V EVEKCoWKXX70NjS1Jh Z8TKpytRnrYrbxmrCs dZUsXlZrfE7zcWQltm UrjGSfdAIegVK4USKs URvzq4cvDRUdJRkbe0 VgEZoNZRFACI4AMP4e dOV9A6aKSJVEG5dOkS U4l0bcjBScf3d1MYlg DZU3pGLrpN9cpUFbw2 ckZacgeLC5WLjwHenl zW3lkSPQEMVBOilNVo epibZsFV2LXJhPXP5C yIJ4l9njmBMdk2p7WA tdTJA9oTedvLMzdfny cz11PVS0NVAeSwEmD2 YxICBmbHVpZHtcZmll nHW6LBcrBzbilM7bkE BIWVBFUkxJTksgbmFt YR4EXBQTSJ5KrDX1Lr NtmFO1QN82AVDrEPHh wWRsNVcxE108AWOhOY yyKJJhMvHfR9PvMBHm sffmxu52ZGO9a0aosR VsZHtcKlxmbGRpbnN0 IEhZUEVSTElOSyBuYW 3kHGsZT9CZJNxWUbjs FTY1LDiooSK2y9jtoL Aar8c5BGfzUJW7xVYr ZWNpbWVuIGNvbmNlbn RyYXRlZCBieSBjeXRv X7DbuTJkDoKnPDMsa2 5erEYbnI4lwBJwx9vx aWVsZHtcKlxmbGRpbn C1YYrFVOQLHEoUCpEm NQ7qKAvBL1DCIvE9Za S1LdC9N0yziHufSvkm tbIxlXNbMeXquK6yqP dncZ8dJwIyMGdaAtY0 QIEypFFqISP3QN4jsQ zkJDCxY8TlI2IzhuX9 QWElqnw7UFIXCXAKQI cLQF3MEEWZKSSKVG2C XJuZJxMvKEN7TMaaLG Q5CfLwQcV3JnG3Cj1o GKOFSYTHQIaVWG7PDL XEHSOENB5YHfUdB2iS RENBUkRfTUVUQURBVE SzNeRCDN7sLhb7T87h j7StIEYrD4aSFXKKXq UfTPCOXNGUNHYiNZ8A LSCXSNQHVH2RIIOKZ2 6WHUCAYZITU9AMX8oI ACBko6GnjPlvEqQ3Ei CoHrs0PWe8X8f3H12k Z3PkjEKqlLfythI4PV WhrrhvkMP1ZkN5TaK5 VuKNoKAazV4ulbDti8 7bHL58rcB8GMLiXhiy F4q4a2WbpnLjgVE0F3 F4kF9xKBYsL7jmwSH1 MTD4NBk8BWGLHLSHRC 9XXBLRO74TBXGBBNTZ Q6TDVVBUKhEGFAGNJ6 5SJAPAEKPKB1XXS4mC QHVLDyLYINOGB26XKD FTRXFBV4CZOSVUXGJQ YuOZBjTJRN2KPJZDTO NWCQ7HBGgDCmGkILZV H9YNQrVCU6vkFJLSGN JZCOUcSL7WmK== Major Classification (test NFMC/benign code = 9839) Diagnosis (test code = 34) l4jmiMArSNSelTO7KZ AsXSMcy6wam2CdiCFd cGFyXGpleHBhbmRcbm 54xKU8eV85IR9uIIRh WkD5UMEsxxN3Sds1GW OpZLYkcHUgX087p2zc m6vbaqDdhUF7OZYgVC QjX4CqWG8hWKVzxVGh W34ydZUcJVY9WFFvGN OykUEuZJOkGTV1WHMm rKThY1mmCXNkQE9thv dyMTgwMFxtYXJndDE0 DVKkyQAqB8IrBXMhFO efYFUevgd4GcMaTu3n dGVyeTcyMFxwYXJkXH OwVDwjZFYaIrIwSN9e Z5BhUXUgu0JjmL2anE BmbHVpZCwgbHVtYmFy HVS4jmF9wHUdFdiwUX JccGFyXHRhYiBObyBt ZJicU38tatAqX8CnpT MgaWRlbnRpZmllZFxw YXJccGFyZFxjZjFccG FyfQ== Retained/Biomarker Testing j0nbkVXwGSZffBA0GC (test code = 9838) GhTUOzq5tmi3PanTRh cGFyXGpleHBhbmRcbm 84kPV4hV71KJ4nBWVf RqV3SNPfkgU2Vqf1ZS TzDXYoxTLbZ313w1dm c8wnitFsaKR3hVgmCT UphghuYgD3MImwVWXm ogjxNSu5XJdpRGNrpE Q9TVNusPJyR8KxRZUm UE0lqum9IRO8LOllCS VqMsY1XKJogDMyNPTd kXvaCNovw510LXP9Tf EyNFObkfXwqVdgqF4u ZnMyMCBTUjogMiBTXH Bhcn0= Informational Points (test o9tymEGmHSYiiPTzMg code = 9836) SjTPQqHEJah7plIXKn bGFuZzEwMzNcZnRuYm pcjBOcKINtKsYzr7iu d540rCIel8grDALxZy A1bKDoQOEpvAWjN418 JDTvTNbzw1vcs3ZcTW VdcHJfy4T3CCMDNRfu XGXYPSf4o3rdFbQrCy I9vSLdFEwgM1pzlkNq xJQyAJCwQGh5sJ05AD YkgC3ojPUfDFhnlmGo PjW1GQycHONxCdT3NI WyxULmNDInK2goHBKt XGdyZWVuMFxibHVlMC Z1wPiah3Z9yXOviYMs dHtcZjBcZnMyMiBOb3 BkRVv1sIqyU6CcKDDn DlM7yZPvZIPtORbkRW VxLPPiebU2hX52DVxy ddC9aMQou6Lvn57wi6 11wC2zhOKlGQB5FQYz SUYquCBeQWZsUQX8IL HfcZFeU1hjWXRwWR4w cmdyMTgwMFxtYXJndD B1PECwuRUsY5EyGJAq SCpfOHNxlmf9GnGuQt 0elEKzfGlrIYhic1gi b5nphAErCta3FYCqFs KdQdalLFpeh5Gse2hi VUYktz7wZIH5pFFdaM obg8C5hHRyMRUjsKGz rnNdHVBtBbC2USrjYT 4adn69RZPjZFI9vo2q bGNccGdicmRyaGVhZF dnN6DsWHMrn768CTOj S1QpLCStt3I7joLqQa SnZEKnwYG0wgN6BITy BSi5kMObocY8rhUaeD KeJ4iuzX4sZSSdNZ5h wialh9rfCYzwYVqdNT KwePB9pwZ3ZFVfyYDx B9YpiV1rEEUoIAzgCM Bcjst4HhOeVo3csTVz eTcyMFxzYmtwYWdlXH BnbmNvbnRccGduZGVj XHBsYWluXHBsYWluXG YwXGZzMjRccWxccGxh xY6eCvClIoRbHGfvBF 4gKMQoH4zowMNeLMQp XJEvX6plRkUwuE2ffE myZKmwgsF9NEwyS45w BST3TZZ1ueIvPKKijd ZjDOLhGYZoIO5whYOv EZAzWAQpXO5kVIA5XG xvcGVkIGFuZCBwZXJm n9SsXY7wQKWtfJUeAN T6UKZgn4FnQ0BnUES4 DXYtzN2oRJJvlJESKV BNRCBBbmRlcnNvbiBQ CLAqz1tuB6fkJM6hSH syFl2uJAVgyxocSHMd aWNpbmUuIFRoZXNlIH Dlw0CkTTtuehBmbn77 VSTiGR3ro0ZnD8ymyK LfsTr8IMEaPHAhVSFa g5NbTTNgrd37VQDySk nyvNnlTMYdEm6sDo9y UAPtnwCaKBR2FjSYFE 8drlvfxIOzuKcmvk4b XHBsYWluXGYyXGZzMj JcbGFuZzEwMzNcaGlj aFxmMlxkYmNoXGYyXG orN2khTiHpWdLtKyyv YXJ9 AndersonCryptococcal Ag Serum Path [id number] 13:49:00Crypto Ag, Serum PRCryptococcal antigen negative making invasive cryptococcal disease unlikely....Reviewed and Electronically signed by Pathologist:Petr Mejia MD, PhD #[id number] Comment: Reference Range: NEGATIVE The Cryptococcal Antigen Lateral Flow Assay is a dipstick sandwich immunographic assay. Positive results will be titered. PETR MEJIA MD, PhD - [id number] by: PETR MEJIA MD, PhD - [id number] Date/Time: 04.05.2021 8:48 AM CDT Transcribed Date/Time: 04.05.2021 8:48 AM CDTElectronically Signed By: PETR MEJIA MD, PhD - [id number] 04.05.2021 8:48 AM [facility] AndersonMeningitis-Encephalitis Multiplex Panel Path [id number] 13:33:14Menin-Enceph Path ReviewNo pathogens detected by multiplex nucleic acid detection. Negative results do not preclude central nervous system ([employer]) infection as not all agents of [employer] infection are detected by this assay. Non-infectious causes of meningitis or encephalopathy should also be considered...Reviewed and Electronically signed by Pathologist:Petr Mejia MD, PhD #[id number] Comment: Assay is a multiplex PCR assay to aid in the diagnosis of meningitis / encephalitis. Results should be used in conjunction with other clinical and laboratory data and not as the sole basis for clinical decisions. Assayshould not be used for monitoring response to therapy. PETR MEJIA MD, PhD - [id number] by: PETR MEJIA MD, PhD - [id number] Date/Time: 8:33 AM CDT Transcribed Date/Time: 04.05.2021 8:33 AM CDTElectronically Signed By: PETR DANIEL MD, PhD - [id number] on 04.05.2021 8:33 AM [facility] 2021-04-05 13:21:09Crypto Ag PRCryptococcal antigen negative making invasive cryptococcal disease unlikely....Reviewed and Electronically signed by Pathologist:Petr Mejia MD, PhD #[id number] Comment: Reference Range: NEGATIVE The Cryptococcal Antigen Lateral Flow Assay is a dipstick sandwich immunographic assay. Positive results will be titered. PETR MEJIA MD, PhD - [id number] by: PETR MEJIA MD, PhD - [id number] Date/Time: 04.05.2021 8:21 AM CDT Transcribed Date/Time: 04.05.2021 8:21 AM CDTElectronically Signed By: PETR MEJIA MD, PhD - [id number] on 04.05.2021 8:21 AM [facility] 2021-04-04 18:04:34 Test Item Value Reference Range Interpretation Comments Cryptococcal Antigen Screen, Serum Negative Negative (test code = 44425-8) MD OroscoCryptococcal [id number] 18:03:53 Test Item Value Reference Range Interpretation Comments Cryptococcal Antigen Screen (test Negative Negative code = 62294-2) MD OroscoPrepararis platelets:Transfusion Date: 04/04/2021; Transfusion Indications: Actively Bleeding; G 1945, 4Jqkwr5924-62-89 16:17:32 Test Item Value Reference Range Interpretation Comments PLT Product Ready Approved Platelet o rder (test code = has been 14588-2) approved. Orde r Form 3 when ready for product issue. Expect 2 hours for platelet concentration. Unit Number (test [id number] code = 7002) Product Code (test [id number] code = 7003) Unit Expiration [id number] (test code = 730481) Unit Blood Type 5100 (test code = 7004) Product Code Text PLATELETS Pooled IR (test code = 555748) Number of Units in 3 Pool (test code = 830961) Unit Irradiated IRRADIATED (test code = 175454) Dispense Status ISSUED (test code = 7001) Unit Blood Type O Positive (test code = 7005) Product Custom Ski Maker .BPAM ____ Location (test ___ code = 216107) ___ ____ MD OroscoPLT Product Ready for Pick [id number] 15:32:26 Test Item Value Reference Range Interpretation Comments PLT Product Ready B2 Blood Bank Product i s 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 MD OroscoCalcium [id number] 14:41:42 Test Item Value Reference Range Interpretation Comments U Calcium (test code 2.6 mg/dL Normal range not = 7706) available for collections les s than 24 hours in durati on. MD OroscoCreatinine [id number] 14:29:22 Test Item Value Reference Range Interpretation Comments U Creatinine (test 82.1 mg/dL 40.0-278.0 The refer ence range code = 7725) listed is for f irst morning urine collection. MD OroscoUrinalysis with [id number] 14:12:56 Test Item Value Reference Interpretation Comments Range UA WBC (test code = <1 See_Comment [Automa deirdre 7904) message] The system which generated this result transmitted reference range : 0 - 2 /HPF. The reference range was not used to interpret this result as normal/abnormal . UA RBC (test code = >182 See_Comment H [Automa deirdre 7891) message] The system which generated this result transmitted reference range : 0 - 2 /HPF. The reference range was not used to interpret this result as normal/abnormal . UA Mucous (test code NOT SEEN Not Seen-Trace = 7887) /HPF UA Bacteria (test NOT SEEN NOT SEEN /HPF code = 7870) UA Squam Epi (test NOT SEEN None-Occasiona code = 7896) l /HPF LIZZY (test code = Some reporting LIZZY) parameters within the Urinalysis test have changed due to the implementation of new instrumentation in the [facility], allowing greater sensitivity of measurement. Urinalysis results reported by the [facility] using existing instrumentation, as well as Urinalysis testing performed manually or by backup methodology at the [facility] will remain relatively unchanged. New reporting parameters and units will now be reported for all campuses. Lab Interpretation Abnormal (test code = 58697-0) MD OroscoUrinalyskristina w/Microscopic if [id number] 14:11:23 Test Item Value Reference Range Interpretation Comments UA Color (test code = 7877) Yellow Straw-Yellow UA Appear (test code = 7868) Clear Clear UA Glucose (test code = 7881) NEG NEG mg/dL UA Bili (test code = 7871) NEG NEG UA Ketones (test code = 7884) NEG NEG mg/dL UA Spec Grav (test code = 7894) 1.018 1.003-1.035 UA Blood (test code = 7872) Moderate NEG A UA pH (test code = 7909) 6.0 5.0-9.0 UA Protein (test code = 7890) NEG NEG mg/dL UA Urobilinogen (test code = 7903) NEG NEG UA Nitrite (test code = 7888) NEG NEG UA Leuk Est (test code = 7886) NEG NEG Lab Interpretation (test code = Abnormal 40822-0) MD OroscoMagnesium [id number] 09:16:18 Test Item Value Reference Range Interpretation Comments Magnesium (test code = 6359) 1.6 mg/dL 1.6-2.6 MD OroscoPhosphorus [id number] 09:16:17 Test Item Value Reference Range Interpretation Comments Phosphorus (test code = 6817) 2.3 mg/dL 2.5-4.5 L Lab Interpretation (test code = Abnormal 41242-2) MD [facility]oGeneral [facility] Add-On [id number] 08:49:06 Test Item Value Reference Range Interpretation Comments Ordered (test code = Test Added 6568) Test Needed (test Phosphorus level, code = 7604) Magnesium level MD [id number] 06:35:09 Test Item Value Reference Range Interpretation Comments aPTT (test code = 33.5 See_Comment [Automate d message] The 6773) system which ge nerated this result transmit deirdre reference range : 24.7 - 36.8 second(s). The reference range was not used to interpr et this result as jossy l/abnormal. MD OroscoProthrombin Time with [id number] 06:35:08 Test Item Value Reference Range Interpretation Comments PT (test code = 6746) 14.8 See_Comment H [Auto mated message] The system [employer] generated this result transmitted ref erence range: 11.5 - 1 3.9 second(s). The reference range was not used to int erpret this result as normal/abnormal . INR (test code = 5973) 1.24 0.90-1.10 H Lab Interpretation (test Abnormal code = 59898-1) MD OroscoDwnzpgsbQqptabtnik9255-67-60 06:35:07 Test Item Value Reference Range Interpretation Comments Fibrinogen (test code = 5610) 347 mg/dL 214-503 MD OroscoMeningitis-Encephalitis [id number] 02:56:49 Test Item Value Reference Range Interpretation Comments Menin/Enceph Panel Not Specified Assay is Source (test code = FDA-aram red 9391) for spinal fluid obtained via lumbar puncture. Escherichia coli K1 Not Detected Not Detected (test code = 9144) Haemophilus influenzae Not Detected Not Detected (test code = 9145) Listeria monocytogenes Not Detected Not Detected (test code = 9146) Neisseria meningitidis Not Detected Not Detected (test code = 9147) Streptococcus Not Detected Not Detected agalactiae (test code = 9148) Streptococcus Not Detected Not Detected pneumoniae (test code = 9149) Cytomegalovirus (test Not Detected Not Detected code = 9150) Enterovirus (test code Not Detected Not Detected = 9151) Herpes simplex Virus 1 Not Detected Not Detected (test code = 9153) Herpes simplex Virus 2 Not Detected Not Detected (test code = 9154) Human Herpesvirus 6 Not Detected Not Detected (test code = 9155) Human Parechovirus Not Detected Not Detected (test code = 9156) Varicella zoster Virus Not Detected Not Detected (test code = 9157) Cryptococcus Refer to separate neoformans/izzy (test Cryptococcal code = 9158) Antigen Assay. MD OroscoCell Count w/ Diff [id number] 02:28:03 Test Item Value Reference Range Interpretation Comments Type CSF (test code = Tap When r eviewing the 64149-9) cell count and differential re sults, clinicians shou ld consider the le ngth of time between spinal fluid collection and testing and the clinical condit ion of the patient. Appear CSF (test code = CLEAR CLEAR When reviewing the 08721-9) cell count and differential re sults, clinicians shou ld consider the le ngth of time between spinal fluid collection and testing and the clinical condit ion of the patient. Color CSF (test code = Colorless Colorless When reviewing the 14937-9) cell count and differential re sults, clinicians shou ld consider the le ngth of time between spinal fluid collection and testing and the clinical condit ion of the patient. WBC CSF (test code = 1 See_Comment When re viewing the 806-0) cell count and differential re sults, clinicians shou ld consider the le ngth of time between spinal fluid collection and testing and the clinical condit ion of the patient. [Automated mess age] The system [employer] generated this result transmitted ref erence range: 0 - 5 /m cL. The reference r alessandro was not used to interpret this result as normal/abnor mal. RBC CSF (test code = 0 See_Comment When re viewing the 792-2) cell count and differential re sults, clinicians shou ld consider the le ngth of time between spinal fluid collection and testing and the clinical condit ion of the patient. [Automated mess age] The system [employer] generated this result transmitted ref erence range: 0 - 0 /m cL. The reference r alessandro was not used to interpret this result as normal/abnor mal. Tot Cells CSF (test 20 When rev iewing the code = 57415-3) cell count a nd differential re sults, clinicians shou ld consider the le ngth of time between spinal fluid collection and testing and the clinical condit ion of the patient. Neut CSF (test code = 15 % 0-5 H When r eviewing the 49172-1) cell count and differential re sults, clinicians shou ld consider the le ngth of time between spinal fluid collection and testing and the clinical condit ion of the patient. Lymph CSF (test code = 55 % 28-96 When reviewing the 29022-3) cell count and differential re sults, clinicians shou ld consider the le ngth of time between spinal fluid collection and testing and the clinical condit ion of the patient. Histiocyte CSF (test 30 % 16-56 When re viewing the code = 83659-7) cell count a nd differential re sults, clinicians shou ld consider the le ngth of time between spinal fluid collection and testing and the clinical condit ion of the patient. Microorganisms CSF None Seen None Seen When revi davidson the (test code = 9393) cell coun t and differential re sults, clinicians shou ld consider the le ngth of time between spinal fluid collection and testing and the clinical condit ion of the patient. Lab Interpretation Abnormal (test code = 03478-0) MD OroscoProtein [id number] 00:49:49 Test Item Value Reference Range Interpretation Comments Protein CSF (test code <28 15-45 = 6894) Type CSF (test code = Tap When r eviewing the cell 7672) count and diffe rential results, clinic ians should consider the le ngth of time between sp inal fluid collection and testing and the clinical co ndition of the patient. MD OroscoGlucose [id number] 00:49:48 Test Item Value Reference Range Interpretation Comments Glucose CSF (test code = 73 mg/dL 40-70 H 5697) Type CSF (test code = Tap When r eviewing the 7672) cell count and differential re sults, clinicians shou ld consider the le ngth of time between spinal fluid collection and testing and the clinical condit ion of the patient. Lab Interpretation (test Abnormal code = 57046-6) MD OroscoTMP Interpretation Antibody Screen [id number] 22:13:37 Test Item Value Reference Range Interpretation Comments TMP Auto Neg At the present ABSC Interp time, patient (test code = plasma shows no BOUBACAR 7535) evidence of RBC SHELTON alloantibodies. Breezy BARCENAS deirdre by: BOUBACAR BARCENAS,Dictated Date/Time: 04.03.2021 17:1 3 PM CDT Transcrib ed Date/Time: 04.03.2021 17:1 3 PM CDTElectronical ly Signed By: YFN IN CAT BARCENAS, on 04.03.2021 17:1 3 PM MD OroscoAntibody [id number] 21:49:44 Test Item Value Reference Range Interpretation Comments ABSC. (test code = 890-4) Negative ABSC MD OroscoFdqksaiuPYVLf2646-67-44 21:49:43 Test Item Value Reference Range Interpretation Comments ABORh. (test code = 882-1) O POS MD OroscoClot Expiration [id number] 21:49:41 Test Item Value Reference Range Interpretation Comments T & S Expiration (test code = 04/06/2021 5318) MD OroscoVancomycin Trough Draw vanc trough before administering 4th vanc dose 1600 04/02. Please hold if level is >20.2021-04-02 23:21:51 Test Item Value Reference Range Interpretation Comments Vanco Trough 8.1 See_Comment Toxic Trough Le edgar: (test code = >20 mcg/mL [Aut omated 6549) message] The sy stem which generated this result transmit deirdre reference range : 5.0 - 20.0 mcg/mL. Th e reference range was not used to int erpret this result as normal/abnormal . Vanco Tr Dose See Note Level, date, a nd time Time (test of previous dos e is code = 8007) not availablefo r this sample. The leroy e reported is the samplecollectio n date. Vanco Tr Dose 04/02/2021 Date (test code = 8006) LIZZY (test Draw vanc trough code = LIZZY) before administering 4th vanc dose 1600 04/02. Please hold if level is >20. MD OroscoIdisopkcLudyvjvgfy2080-79-72 09:40:20 Test Item Value Reference Range Interpretation Comments Osmolality (test code = 272 See_Comment L Unit s in mOsm per kg 6571) of water. [Auto mated message] The sy stem which generated this result transmit deirdre reference range : 275 - 300 mOsm/kg H 2O. The reference r alessandro was not used to interpret this result as normal/abnor mal. Lab Interpretation (test Abnormal code = 45367-3) MD OroscoOsmolality [id number] 00:12:27 Test Item Value Reference Range Interpretation Comments U Osmolality (test code 450 See_Comment Urin zoey osmolality may = 7785) vary widely, de pending on the state of hydration. Arnett om urine osmolality can range from 50 to 1400 mOsm/kg H2O depending o n fluid intake. In rosalva viduals on average flui d intake, urine osmolalit y is typically 300-9 00 mOsm/kg H2O.Uni ts of measure: mOsm p er Kg of water. [Automa deirdre message] The sy stem which generated this result transmit deirdre reference range : 50 - 1,400 mOsm/kg H 2O. The reference range was not used to interpr et this result as normal/abnormal . MD OroscoUrea Nitrogen [id number] 23:34:56 Test Item Value Reference Range Interpretation Comments U Urea (test code = 250 mg/dL Normal r alessandro not 7820) available for c ollections less than 24 ho urs in duration. MD OroscoSodium Level, [id number] 23:34:54 Test Item Value Reference Range Interpretation Comments U Sodium (test code = 121 mEq/L Normal range not available 0619) for collections less than 24 hours in dur ation. MD OroscoConfirm [id number] 13:05:16 Test Item Value Reference Range Interpretation Comments ABORh Confirm. (test code = 882-1) O POS MD OroscoRespiratory Viral Panel + COVID-19, Nasopharyngeal [id number] 10:04:33 Test Item Value Reference Range Interpretation Comments RMP Source (test code = Not Applicable 8653) Adenovirus (test code = Not Detected Not Detected 4748) Coronavirus 229E (test Not Detected Not Detected code = 5349) Coronavirus HKU1 (test Not Detected Not Detected code = 5350) Coronavirus NL63 (test Not Detected Not Detected code = 5351) Coronavirus OC43 (test Not Detected Not Detected code = 5352) COVID19 (SARS-CoV-2) Not Detected Not Detected (test code = 77943-2) Human Metapneumovirus Not Detected Not Detected (test code = 6401) Human Not Detected Not Detected Rhinovirus/Enterovirus (test code = 7212) Influenza A (test code Not Detected Not Detected = 5618) Influenza A H1 (test Not Detected Not Detected code = 5619) Influenza A H1 2009 Not Detected Not Detected (test code = 5620) Influenza A H3 (test Not Detected Not Detected code = 5621) Influenza B (test code Not Detected Not Detected = 5622) Parainfluenza 1 (test Not Detected Not Detected code = 6779) Parainfluenza 2 (test Not Detected Not Detected code = 6780) Parainfluenza 3 (test Not Detected Not Detected code = 6781) Parainfluenza 4 (test Not Detected Not Detected code = 6782) Respiratory Syncytial Not Detected Not Detected Virus (test code = 7157) Bordetella Not Detected Not Detected Parapertussis (test code = 02423) Bordetella pertussis Not Detected Not Detected (test code = 4854) Chlamydiophila Not Detected Not Detected pneumoniae (test code = 5139) Mycoplasma pneumoniae Not Detected Not Detected (test code = 6203) LIZZY (test code = LIZZY) The BioFire RP2.1 is a real-time, nested multiplexed polymerase chain reaction test designed to simultaneously identify nucleic acids from 22 different viruses and bacteria associated with respiratory tract infection, including SARS-CoV-2, from a single nasopharyngeal swab (FOOD ANALYST) specimen. Specifically, the SARS-CoV-2 primers contained in [...] to perform moderate-complexity and high-complexity tests. The Microbiology Laboratory at [facility], CLIA Accreditation #[id number] and CAP Accreditation #[id number], verified the performance characteristics of this assay. Microbiology Laboratory at [facility] performs the assay using the DockPHP System. Internal controls are used to monitor all stages of the test process. The BioFire RP2.1 is a real-time, nested multiplexed polymerase chain reaction test designed to simultaneously identify nucleic acids from 22 different viruses and bacteria associated with respiratory tract infection, including SARS-CoV-2, from a single nasopharyngeal swab (FOOD ANALYST) specimen. Specifically, the SARS-CoV-2 primers contained in [...] to perform moderate-complexity and high-complexity tests. The Microbiology Laboratory at [facility], CLIA Accreditation #[id number] and CAP Accreditation #[id number], verified the performance characteristics of this assay. Microbiology Laboratory at [facility] performs the assay using the [employer]PHP System. Internal controls are used to monitor all stages of the test process. MD O[id number] 09:20:25 Test Item Value Reference Range Interpretation Comments Lipase Lvl (test code = 6165) 35 U/L 13-60 MD OroscoLijqdfwyZttzgwz4529-22-27 09:20:24 Test Item Value Reference Range Interpretation Comments Amylase Lvl (test code = 4806) 74 U/L 28-100 MD OroscoVB [id number] 08:16:26 Test Item Value Reference Range Interpretation Comments V Lactate (test code = 2519-7) 1.4 mmol/L 0.5-1.6 MD OroscoHepatitis E Virus by Quant PCR [id number] 13:23:32 Test Item Value Reference Interpretation Comments Range Hepatitis E <3.3 Quant by PCR, Log IU/mL (test code = 25653) Hepatitis E Not Detected Not Detected INTERPRETIVE IN FORMATION: Quant by PCR, Hepatitis E Vi lamine by Interp (test Quantitative code = 63738) PCRThe quantitative range of this a ssay is 3.3- 8.3 log IU/mL(1 ,800- 180,000,000 IU/ mL). One IU/mL of HEV RNA is approximately2. 25 copies/mL.A negative result (less than 3.3 log IU/mL or less than 1,800IU/mL) johnson s not rule out the presence of PCR inhibitors in t hepatient specimen or HEV RNA concentrations below the level ofdetecti on of the test. Inhibitio n may also lead to underes timationof viral quantitat ion.This test was developed a nd its performance characteristics determined by [employer]. It has not been cleared or approved by the [place] Food and Drug Administration. This test wasperformed in a CLIA certified labor atory and is intended forcli nical purposes.Perfor med By: [employer] [place] [id number] Director: Holli Burris MD Hepatitis E <1,800 IU/mL Quant by PCR, IU/mL (test code = 69394) Hepatitis E Serum Quant by PCR, Source (test code = 01019) MD OroscoInsulin-Like Growth Factor [id number] 15:55:54 Test Item Value Reference Range Interpretation Comments Insulin-Like 49 ng/mL 32-200 Growth Factor 1-[place] (test code = 2484-4) IGF Z-score -1.65 See_Comment -----ADDITIONAL (test code = INFORMATION---- 08550-7) is test was dev eloped and its performance characteristics determined by [facility] in a manner consistent with CLIArequirement s. This test has not been cleare d or approved bythe U.S. Food and Drug Administration. Test Performed by:[facility] [address] [place], [place] [address]Gxo Direct or: Tai Josue M.D. Ph. D.; CLIA# [id number] [Au tomated message] The system [employer] generated this result transmit deirdre reference range: -2.0 - 2 .0 SD. The reference range was not used to interpret this result as normal/abnormal . MD OroscoGrowth [id number] 15:40:26 Test Item Value Reference Range Interpretation Comments [facility] 4.54 ng/mL 0.01-0.97 H Test Pe rformed (test code = 2963-7) by:[facility] [address] [facility] [address]or [address] [place], [place] [address]Hwt Director: Jase Josue M.D. Ph. D.; CLIA# [id number] Lab Interpretation Abnormal (test code = 78087-6) MD Mcclure C Virus RNA Detect/[id number] 02:30:29 Test Item Value Reference Range Interpretation Comments HepC RNA PCR Undetected Undetected IU/mL Result in l og IU/mL is [facility] (test Undetected. code = 89140-9) -------ADDITIO NAL INFORMATION---- ----The quantif ication range of this a ssay is 15 to 100,000,000I U/mL (1.18 log to 8.00 log IU/mL). Testing was per formedusing the liliana HCV t est ([employer]with the c ayaz 6800 System. Test Pe rformed by:[facility] [address] [place], [place] [address]Lab Director: Jase Josue M.D. Ph. D.; CLIA# [id number] MD [place] A Antibody [id number] 21:15:25 Test Item Value Reference Range Interpretation Comments Hepatitis A IgG (test Positive Result indicates code = 45424-9) immunity to hepatitis A infection frome ither vaccination or past exposure to hep atitis A.False-positiv e results may be observed in patients with CMVantibodies o r heterophilic an tibodies. ----REFER ENCE VALUE --------- -------Unvaccin ated: NegativeVaccina deirdre: Positive Test P erformed by:[facility] [address] [place], [place] [address]Lab Director: Jase Josue M.D. Ph. D.; CLIA# [id number] MD [place] B Core Total [id number] 18:47:29 Test Item Value Reference Range Interpretation Comments HBc Total Ab-[place] (test Positive Negative A If c linically code = 88558-3) indicated, t esting for Hepatitis B Cor eIgM antibody is nec essary to differentiat e between acutean d past HBV infection. Test Performed by:[facility] [address] , [place], [place] [address]Esh Dir karishma: Tai aguilar M.D. Ph.D.; CLIA# [id number] Lab Interpretation Abnormal (test code = 25479-8) MD Mcclure B Surface [id number] 18:39:30 Test Item Value Reference Range Interpretation Comments Hep Bs Ab-[place] Positive Patient is co nsidered to (test code = be immune to in fection 81738-0) with HBV. ----REFEREN CE VALUE -----Unvaccinat ed: NegativeVaccina deirdre: Positive Hep Bs Ab [facility] 186 mIU/mL --------- REFERE (test code = NCE 5193-8) VALUE -----Unvaccinat ed: <5.0Vaccinated: >=12.0 Test Performed by:[facility] [address] [place], [place] [address]Ohk Director: Jase Josue M.D. Ph. D.; CLIA# [id number] MD [place] B Surface Ag w/[id number] 18:21:32 Test Item Value Reference Range Interpretation Comments Hep Bs Ag-[place] Negative Negative Test Perform ed by:[facility] (test code = [facility] - 5196-1) [place] [employer] [address] [employer] [address] [place], [place] [address]Ylv Director: Jase Josue M.D. Ph. D.; CLIA# [id number] MD [place] HIV 1/2 Ag&Ab Path [id number] 16:22:01 Test Item Value Reference Range Interpretation Comments HIV 1/2 Ag&Ab Negative for HIV-1 Interp (test antigen and code = 9394) HIV-1/HIV-2 LUCERO CAMACHO antibodies. No Todd NIXON ateaislinn laboratory evidence by: PAMELA CHA of HIV infection. Aislinn NIXON ictated If acute HIV Date/Time: infection is 03.20.2021 11:2 2 AM suspected, consider CDT Tr anscribed testing for HIV-1 Date/Time: RNA. 03.20.2021 11:2 2 AM CDTElectronical ly Signed By: PAMELA NIXON, bryan 03.20.2021 11:2 2 AM MD [place] HCV Ab Path [id number] 16:20:39 Test Item Value Reference Range Interpretation Comments HCV Ab Path Patient shows Interp (test evidence of code = 8923) Hepatitis C virus JETT antibody. This Diony NIXON tated by: may be due to JETT prior exposure to Aislinn NIXON ictated the Hepatitis C Date/Time: 0 03.20.2021 virus. 11:20 AM CDT Transcribed Date/Time: . 11:20 AM CDTElectronical ly Signed By: PAMELA NIXON, on 03.20.2021 11:2 0 AM MD OroscoHepatitis C Virus [id number] 05:04:03 Test Item Value Reference Range Interpretation Comments HCVAb. (test code = Reactive Non Reactive A Antibody detection in 5762) the immunocompr omised and immunosuppr essed population may be delayed or abse nt entirely. There fore serial testing, correlation wit h other clinical findin gs, and supplemental te sting (if available) shou ld be taken into cons ideration when interpreti ng the results.Perform ed at: [facility] [address] [place], [place] [address] Lab Interpretation Abnormal (test code = 91034-2) MD OroscoHIV-1/2 Antigen and Antibodies, Fourth [id number] 02:20:32 Test Item Value Reference Range Interpretation Comments HIV 1/2 Ag & Ab, Non Reactive Non Reactive Performed a t: [employer] (test code [place] [facility] = 9280) [id number] [place] [address] [id number] MD OroscoCA 20:34:25 Test Item Value Reference Interpretation Comments Range CA 19-9 (test code 56.1 U/mL See_Comment H Results g reater than 9500 = 5171) U/mL may not be reliable due to matrix effec t with extended diluti on as it exceeds the man ufacturer's recommended lopez it. Caution should be exerc ised when interpreting duarte ch values and done in conjunc tion with clinical contex t. This test is measured by electrochemilum inescence immunoassay on Arsalan Liliana immunoassay laura lyzers. Results obtaine d in different metho ds are not interchangeable . [Automated message] The sy stem which generated this result transmitted ref erence range: <=35.0. The reference range was not u sed to interpret this result as normal/abnormal . Lab Interpretation Abnormal (test code = 31731-3) MD [id number] 19:56:59 Test Item Value Reference Range Interpretation Comments LDH (test code = 6111) 226 U/L 135-225 H Resul ts greater than 1651 U/L may no t be reliable due to matrix effect w ith extended diluti on as it exceeds the milking machine mechanic s recommended l imit. Caution should be exercised when interpreting duarte ch values and done in conjunction wit h clinical contex t. Lab Interpretation (test Abnormal code = 18502-0) MD Mcclure B Surface [id number] 19:48:00 Test Item Value Reference Range Interpretation Comments HBsAg Received (test See Note HBsAg w as sent to a code = 87359) reference lab for testing. Expec t results on Hepa titis B Surface Antigen w/ Confirm within 96 hours. MD Ren King Total Ig Core Ab (SCREENING) (anti-HBc total Ig; HBcAb total Ig)2021-03-19 19:47:59 Test Item Value Reference Range Interpretation Comments HBcAb Received (test See Note HBcAb w as sent to a code = 70310) reference lab for testing. Expec t results on Hepa titis B Core Total Ab w ithin 96 hours. MD OroscoHemoglobin [id number] 19:35:40 Test Item Value Reference Range Interpretation Comments A1C (test code = 5.1 % 4.3-5.6 HbA1c value s >=6.5% are 4632) diagnostic of d iabetes mellitus.Diagno sis should be confirmed by repeat testing.Therape utic Action suggested: >8.0 % HbA1c; Goal oftherapy: <7.0% HbA1c MD Orosco
[2021-06-16] MEDS ORDERED: NA CHLORIDE 0.9% 1,000 ML ONE (21:00)
[2021-06-16 21:09] LABS: Urine Blood Negative (Negative); Urine Glucose Negative (Negative); Urine Protein Negative (Negative)
--- NOTE | 2021-06-16 21:21 | RAD REPORT ---
EXAM DESCRIPTION: Nita Single View06/16/2021 9:10 pm CLINICAL HISTORY: GI bleeding COMPARISON: May 25, 2021 FINDINGS: The lungs appear clear of acute infiltrate. The heart is normal size. Aorta is tortuous/e ctatic IMPRESSION: No acute abnormalities displayed
[2021-06-16 21:33] LABS: Absolute Lymphocytes (CBC) 0.3 K/uL (0.7-4.9); Basophils % 0.4 % (0-1.3); Lymphocytes % 7.3 % (15.3-44.8); MPV 6.9 fL (7.6-11.3); RBC Red Blood Cell Count 1.74 M/uL (4.33-5.43)
[2021-06-16] MEDS ORDERED: NA CHLORIDE 0.9% 500 ML ONE (21:33)
[2021-06-16] MEDS ORDERED: PANTOPRAZOLE 40 MG INJ ONE (21:33)
[2021-06-16] MEDS ORDERED: NA CHLORIDE 0.9% 250 ML ONE (21:33)
[2021-06-16] MEDS ORDERED: OCTREOTIDE ACETATE 100 MCG/ML ONE (21:34)
[2021-06-16 21:37] LABS: Hematocrit 18.7 % (39.6-49.0)
[2021-06-16 21:38] LABS: Protime INR 1.64
[2021-06-16 22:11] LABS: ALT/SGPT 465 U/L (12-78); Albumin 1.1 g/dL (3.4-5.0); Alkaline Phosphatase 152 U/L (45-117); BUN Blood Urea Nitrogen 46 mg/dL (7-18); Bicarbonate 17 mmol/L (21-32); Bilirubin Direct 1.7 mg/dL (0-0.2); Bilirubin Total 2.1 mg/dL (0.2-1.0); Glucose Level 113 mg/dL (74-106); Lipase 329 U/L (73-393); Potassium 5.2 mmol/L (3.5-5.1); Protein, Total 7.3 g/dL (6.4-8.2); Sodium Level 136 mmol/L (136-145); Troponin (Emerg Dept Use Only) < 0.02 ng/mL (0.0-0.045)
[2021-06-16 22:18] LABS: AST/SGOT 1223 U/L (15-37)
[2021-06-16 22:37] LABS: Blood Morphology Comment NOTED (NOT SEEN); White Blood Cell Scan OK (OK)
[2021-06-16 22:38] LABS: Anisocytosis SLIGHT; Macrocytosis 1+; Platelet Estimate DECR; Polychromasia 1+
--- NOTE | 2021-06-17 00:33 | ER ---
Nurse's Notes [facility] Name: Vinicio Jean Age: 70 yrs Sex: Male : 1950 Arrival Date: 06/16/2021 Time: 18:58 Bed 19 Private MD: Heidy Hammer C Diagnosis: GI Bleed/ Gastrointestinal hemorrhage, unspecified Presentation: 06/16 19:50 Chief complaint: Patient states: I have had blood in my stool since Tuesday night \T\ my ld1 stool has been black. Reports ABD pain 5/10 and distention. SOB \T\ jaundice. Coronavirus screen: At this time, the client does not indicate any symptoms associated with coronavirus-19. Ebola Screen: No symptoms or risks identified at this time. 19:50 Method Of Arrival: Ambulatory ld1 19:52 Chief complaint:. Initial Sepsis Screen: Does the patient meet any 2 criteria? No. ld1 Patient's initial sepsis screen is negative. Does the patient have a suspected source of infection? No. Patient's initial sepsis screen is negative. Risk Assessment: Do you want to hurt yourself or someone else? Patient reports no desire to harm self or others. Onset of symptoms was June 16, 2021. 19:52 Acuity: JOSÉ MIGUEL 3 ld1 Triage Assessment: 19:53 General: Appears in no apparent distress. uncomfortable, Behavior is calm, cooperative, ld1 appropriate for age. Pain: Complains of pain in abdomen Pain does not radiate. Pain currently is 5 out of 10 on a pain scale. Quality of pain is described as Bloated Pain began gradually, Is continuous. EENT: No signs and/or symptoms were reported regarding the EENT system. Neuro: Level of Consciousness is awake, alert, obeys commands, Oriented to person, place, time, situation, Appropriate for age. Cardiovascular: Capillary refill < 3 seconds Patient's skin is warm and dry. Respiratory: Airway is patent Respiratory effort is even, unlabored, Respiratory pattern is regular, symmetrical. GI: Abdomen is round distended. : No signs and/or symptoms were reported regarding the genitourinary system. Derm: Skin is jaundiced. 19:53 Musculoskeletal: No signs and/or symptoms reported regarding the musculoskeletal system.ld1 Historical: - Allergies: 19:52 No Known Allergies; ld1 - Home Meds: 19:52 Xanax Oral [Active]; Oxycodone HCl Oral [Active]; ld1 - PMHx: 19:52 Liver cancer; Hypertensive disorder; ld1 - PSHx: 19:52 None; ld1 - Immunization history:: Adult Immunizations up to date. - Social history:: Smoking status: Patient denies any tobacco usage or history of. Patient/guardian denies using alcohol. Screenin:55 Abuse screen: Denies threats or abuse. Denies injuries from another. Nutritional ld1 screening: No deficits noted. Tuberculosis screening: No symptoms or risk factors identified. Fall Risk None identified. Assessment: 19:55 Reassessment: See triage assessment. ld1 21:27 Reassessment: Patient appears in no apparent distress at this time. No changes from ld1 previously documented assessment. Patient and/or family updated on plan of care and expected duration. Pain level reassessed. Patient is alert, oriented x 3, equal unlabored respirations, skin warm/dry/pink. 23:38 Reassessment: Patient appears in no apparent distress at this time. Patient and/or ld1 family updated on plan of care and expected duration. Pain level reassessed. Pt denies concerns at this time. Waiting on results. 06/17 07:00 Reassessment: Pt with three IV accesses, 20 g to left AC, no redness or swelling noted, ll3 flushes easily; 20 g to right AC, no redness or swelling noted, flushes easily; 22 g to right hand, swelling noted from distal hand to elbow, IV dc'd, intact, pt denies pain, hand and forearm wrapped with nakul bandage and elevated at this time. Vital Signs: 06/16 19:50 BP 114 / 70; Pulse 81; Resp 19; Temp 97.5(O); Pulse Ox 100% on R/A; Weight 71.67 kg; ld1 Height 5 ft. 7 in. (170.18 cm); Pain 5/10; 20:45 BP 107 / 61; Pulse 78; Resp 23; Pulse Ox 100% on R/A; ld1 21:27 BP 102 / 66; Pulse 79; Resp 23; Pulse Ox 100% on R/A; ld1 23:38 BP 107 / 61; Pulse 79; Resp 26; Pulse Ox 100% on R/A; ld1 12/08 07:00 BP 104 / 65; Pulse 82; Resp 15; Pulse Ox 100% on R/A; ll3 06/16 19:50 Body Mass Index 24.75 (71.67 kg, 170.18 cm) ld1 ED Course: 06/16 18:58 Patient arrived in ED. ds1 18:58 Heidy Hammer MD is Private Physician. ds1 19:38 Goldie Sanchez, RACHAEL is Primary Nurse. ld1 19:52 Triage completed. ld1 19:53 Arm band placed on. ld1 19:55 Patient has correct armband on for positive identification. Placed in gown. Bed in low ld1 position. Call light in reach. Side rails up X2. railway switch operator on. Pulse ox on. NIBP on. Door closed. Noise minimized. Warm blanket given. 19:55 No provider procedures requiring assistance completed. ld1 20:36 Kenneth Alaniz MD is Attending Physician. mh7 21:11 Chest Single View XRAY In Process Unspecified. EDMS 22:45 CT Abd/Pelvis - IV Contrast Only In Process Unspecified. EDMS 23:[address] Wganer phone went to voicemail so I left a voicemail. mw2 23:42 Missed attempt(s): 18 gauge in right wrist. 20 gauge in right forearm. Bleeding ds4 controlled, band aid applied, catheter tip intact. 06/17 00:28 pagetricia Wagner phone went to voicemail so I left a voicemail. mw2 00:31 Enrico Marshall DO is Hospitalizing Provider. [facility] 07:51 Patient admitted, IV remains in place. intact, No redness/swelling at site. ll3 Administered Medications: 06/16 21:27 Drug: NS 0.9% 1000 ml Route: IV; Rate: 1000 ml; Site: right antecubital; ld1 22:17 Drug: ProTONIX (pantoprazole) 80 mg Route: IVP; Site: left antecubital; ld1 22:17 Drug: ProTONIX (pantoprazole) 8 mg/hr Route: IV; Rate: 25 ml/hr; Site: left antecubital;ld1 22:17 Drug: Octreotide 50 mcg Route: IV; Rate: per protocol; Site: right antecubital; ld1 22:17 Drug: Octreotide Infusion (50 mcg/hr) - (Octreotide 500 mcg, NS 0.9% 500 ml) Route: IV; ld1 Rate: 50 ml/hr; Site: right antecubital; Outcome: 06/17 00:32 Decision to Hospitalize by Provider. [facility] 07:50 Admitted to Tele accompanied by chula, via stretcher, room 212, with chart, Report ll3 called to RACHAEL Chapin 07:50 Condition: stable 07:50 Discharge instructions given to patient, family, Instructed on the need for admit, Demonstrated understanding of instructions. 08:00 Patient left the ED. ll3 Signatures: Dispatcher [employer] EDWA Ching Jaramillo ds1 Meet Kelly ds4 Vivienne Trotter 2 Kenneth Alaniz MD MD 7 Goldie Sanchez RN RN ld1 Feliciano Mayberry RN RN ll3 Corrections: (The following items were deleted from the chart) 06/16 19:52 19:50 Chief complaint: Patient states: I have had blood in my stool since Tuesday night ld1 \T\ my stool has been black. Reports ABD pain 5/10 and distention. SOB ld1 21:30 21:29 CORONAVIRUS+MR.LAB.BRZ drawn and sent. ld1 EDWA
--- NOTE | 2021-06-17 00:33 | EDPHYS ---
Physician Documentation [facility] Name: Vinicio Jean Age: 70 yrs Sex: Male : 1950 Arrival Date: 06/16/2021 Time: 18:58 Bed 19 Private MD: Heidy Hammer C ED Physician Kenneth Alaniz HPI: 06/16 21:35 This 70 yrs old Male presents to ER via Ambulatory with complaints of mh7 Weakness, Decreased Appetite, Bloody Stools. 21:35 The patient presents to the emergency department with rectal bleeding, a moderate mh7 amount, dark red blood with bowel movement with multiple such episodes. Onset: The symptoms/episode began/occurred 4 day(s) ago. Abdominal pain: described as intermittent, vague,\E\ waxing and waning, located in the epigastric area, right upper quadrant and left upper quadrant, that does not radiate. 21:35 Modifying factors: The symptoms are alleviated by nothing, the symptoms are aggravated mh7 by nothing. Associated signs and symptoms: Pertinent positives: anorexia, diarrhea, Generalized fatigue/weakness, Pertinent negatives: chest pain, constipation, dizziness at rest, dizziness when standing, fever, shortness of breath, syncope, near-syncope. 21:35 Severity of symptoms: At their worst the symptoms were moderate yesterday, in the 7 emergency department the symptoms have improved moderately. Historical: - Allergies: 19:52 No Known Allergies; ld1 - Home Meds: 19:52 Xanax Oral [Active]; Oxycodone HCl Oral [Active]; ld1 - PMHx: 19:52 Liver cancer; Hypertensive disorder; ld1 - PSHx: 19:52 None; ld1 - Immunization history:: Adult Immunizations up to date. - Social history:: Smoking status: Patient denies any tobacco usage or history of. Patient/guardian denies using alcohol. ROS: 21:35 Constitutional: Negative for fever, chills, and weight loss, Eyes: Negative for injury, mh7 pain, redness, and discharge, ENT: Negative for injury, pain, and discharge, Neck: Negative for injury, pain, and swelling, Cardiovascular: Negative for chest pain, palpitations, and edema, Respiratory: Negative for shortness of breath, cough, wheezing, and pleuritic chest pain, Back: Negative for injury and pain, : Negative for injury, bleeding, discharge, and swelling, MS/Extremity: Negative for injury and deformity, Skin: Negative for injury, rash, and discoloration, Psych: Negative for depression, anxiety, suicide ideation, homicidal ideation, and hallucinations, Allergy/Immunology: Negative for hives, rash, and allergies, Endocrine: Negative for neck swelling, polydipsia, polyuria, polyphagia, and marked weight changes, Hematologic/Lymphatic: Negative for swollen nodes, abnormal bleeding, and unusual bruising. Exam: 21:35 Head/Face: Normocephalic, atraumatic. Neck: Trachea midline, no thyromegaly or masses mh7 palpated, and no cervical lymphadenopathy. Supple, full range of motion without nuchal rigidity, or vertebral point tenderness. No Meningismus. Chest/axilla: Normal chest wall appearance and motion. Nontender with no deformity. No lesions are appreciated. Cardiovascular: Regular rate and rhythm with a normal S1 and S2. No gallops, murmurs, or rubs. Normal PMI, no JVD. No pulse deficits. Respiratory: Lungs have equal breath sounds bilaterally, clear to auscultation and percussion. No rales, rhonchi or wheezes noted. No increased work of breathing, no retractions or nasal flaring. 21:35 Back: No spinal tenderness. No costovertebral tenderness. Full range of motion. Skin: Warm, dry with normal turgor. Normal color with no rashes, no lesions, and no evidence of cellulitis. MS/ Extremity: Pulses equal, no cyanosis. Neurovascular intact. Full, normal range of motion. Neuro: Awake and alert, GCS 15, oriented to person, place, time, and situation. Cranial nerves II-XII grossly intact. Motor strength 5/5 in all extremities. Sensory grossly intact. Cerebellar exam normal. Normal gait. Psych: Awake, alert, with orientation to person, place and time. Behavior, mood, and affect are within normal limits. 21:35 Constitutional: The patient appears in no acute distress, alert, awake, obviously ill. 21:35 Abdomen/GI: Inspection: distension, that is mild, in the abdomen diffusely, Bowel sounds: normal, in all quadrants, Palpation: mild abdominal tenderness, in the epigastric area, right upper quadrant and left upper quadrant, mass, is not appreciated, rebound tenderness, is not appreciated, voluntary guarding, is not appreciated, involuntary guarding, is not appreciated, no appreciated organomegaly, Rectal exam: rectal tone normal, Stool: guaiac positive, black, hemorrhoid(s), external, without bleeding, without inflammation, without thrombosis, without pain, mass, is not appreciated, swelling, is not appreciated, tenderness, is not appreciated, fecal impaction, is not appreciated, Indicators: McBurney's point is not tender, Zelaya's sign is negative, Rovsing's sign is negative, Obturator sign is negative, Psoas sign is negative, Liver: is enlarged, Hernia: not appreciated. Vital Signs: 19:50 BP 114 / 70; Pulse 81; Resp 19; Temp 97.5(O); Pulse Ox 100% on R/A; Weight 71.67 kg; ld1 Height 5 ft. 7 in. (170.18 cm); Pain 5/10; 20:45 BP 107 / 61; Pulse 78; Resp 23; Pulse Ox 100% on R/A; ld1 21:27 BP 102 / 66; Pulse 79; Resp 23; Pulse Ox 100% on R/A; ld1 23:38 BP 107 / 61; Pulse 79; Resp 26; Pulse Ox 100% on R/A; ld1 08 07:00 BP 104 / 65; Pulse 82; Resp 15; Pulse Ox 100% on R/A; ll3 06/16 19:50 Body Mass Index 24.75 (71.67 kg, 170.18 cm) ld1 MDM: 00:29 Differential diagnosis: gastritis, diverticulitis, hemorrhoids, varices. Data reviewed: [facility] vital signs, nurses notes, lab test result(s), CBC, electrolytes, urinalysis, radiologic studies, CT scan, plain films. Data interpreted: Pulse oximetry: on room air is 100 %. Interpretation: normal. Counseling: I had a detailed discussion with the patient and/or guardian regarding: the historical points, exam findings, and any diagnostic results supporting the discharge/admit diagnosis, lab results, radiology results, the need for further work-up and treatment in the hospital. Response to treatment: the patient's symptoms have mildly improved after treatment. Physician consultation: Tai Wagner MD was called at 23:40, Attempt to contact Dr. Bernard by phone at [phone] and [phone] without any response or call back.. 00:32 Patient medically screened. [facility] 06/16 20:57 Order name: Basic Metabolic Panel; Complete Time: 22:34 [facility] 06/16 20:57 Order name: CBC with Diff; Complete Time: 23:32 [facility] 06/16 20:57 Order name: Hepatic Function; Complete Time: 22:34 [facility] 06/16 20:57 Order name: Lipase; Complete Time: 22:34 [facility] 06/16 20:57 Order name: Type And Screen [facility] 06/16 20:57 Order name: Troponin (emerg Dept Use Only); Complete Time: 22:34 [facility] 06/16 20:57 Order name: Protime (+inr); Complete Time: 22:09 [facility] 06/16 20:57 Order name: Ptt, Activated; Complete Time: 22:09 [facility] 06/16 21:09 Order name: Urine Dipstick-Ancillary; Complete Time: 22:09 [facility] 06/16 21:30 Order name: SARS-COV-2 RT PCR; Complete Time: 22:34 [facility] 06/16 20:57 Order name: IV Saline Lock; Complete Time: 21:27 [facility] 06/16 20:57 Order name: Labs collected and sent; Complete Time: 21:27 [facility] 06/16 20:57 Order name: Urine Dipstick-Ancillary (obtain specimen); Complete Time: 21:09 [facility] 06/16 20:57 Order name: EKG; Complete Time: 20:57 [facility] 06/16 20:57 Order name: EKG - Nurse/Tech; Complete Time: 21:27 [facility] 06/16 20:57 Order name: CT Abd/Pelvis - IV Contrast Only [facility] 06/16 20:58 Order name: Chest Single View XRAY; Complete Time: 22:09 [facility] 06/16 21:38 Order name: Transfuse; Complete Time: 05:34 [facility] 06/16 21:41 Order name: Packed RBC Leukored [facility] 06/16 22:00 Order name: CBC Smear Scan; Complete Time: 23:32 [facility] 06/16 23:54 Order name: ABO/RH no charge; Complete Time: 00:33 EDMS Administered Medications: 06/16 21:27 Drug: NS 0.9% 1000 ml Route: IV; Rate: 1000 ml; Site: right antecubital; ld1 22:17 Drug: ProTONIX (pantoprazole) 80 mg Route: IVP; Site: left antecubital; ld1 22:17 Drug: ProTONIX (pantoprazole) 8 mg/hr Route: IV; Rate: 25 ml/hr; Site: left antecubital;ld1 22:17 Drug: Octreotide 50 mcg Route: IV; Rate: per protocol; Site: right antecubital; ld1 22:17 Drug: Octreotide Infusion (50 mcg/hr) - (Octreotide 500 mcg, NS 0.9% 500 ml) Route: IV; ld1 Rate: 50 ml/hr; Site: right antecubital; Disposition Summary: 06/17/21 00:32 Hospitalization Ordered Hospitalization Status: Inpatient Admission [facility] Provider: Enrico Marshall [facility] Condition: Stable [facility] Problem: new [facility] Symptoms: have improved [facility] Bed/Room Type: Standard [facility] Location: Telemetry/MedSurg (Inpatient)(06/17/21 05:38) Room Assignment: [facility](06/17/21 05:38) Diagnosis - GI Bleed/ Gastrointestinal hemorrhage, unspecified [facility] Forms: - Medication Reconciliation Form [facility] - SBAR form [facility] Signatures: Dispatcher [employer] EDME Annabella Aparicio RN RN mw Ballard, Brenda, RN RN bb Avery Baker, DEGREE CLERK-C DEGREE CLERK-Cla1 Kenneth Alaniz MD MD 7 Goldie Sanchez RN RN ld1 Corrections: (The following items were deleted from the chart) 21:30 21:00 CORONAVIRUS+MR.LAB.BRZ ordered. EDME EDMS 21:40 21:39 PACKED RBC LEUKORED -1+BB.LAB.BRZ ordered. EDME EDMS 21:40 21:39 ABO/RH typing ordered. EDME EDMS 21:40 21:39 Antibody Screen ordered. EDME EDMS 06/17 00:45 00:32 Telemetry/MedSurg (Inpatient) [facility] bb 00:45 00:32 [facility] bb 05:38 00:45 BR ER HOLD bb 05:38 00:45 ERHOLD- bb
--- NOTE | 2021-06-17 00:59 | P.HP ---
Certification for Inpatient Patient admitted to: Inpatient With expected LOS: >2 Midnights Patient will require the following post-hospital care: None Practitioner: I am a practitioner with admitting privileges, knowledge of patient current condition, hospital course, and medical plan of care. Services: Services provided to patient in accordance with Admission requirements found in Title 42 Section 412.3 of the Code of Federal Regulations Patient History Date of Service: 06/17/21 Primary Care Provider: Dr. Carter Reason for admission: UGIB History of Present Illness: 70-year-old male with history of liver cancer, hepatitis C, previous alcohol abuse presents emerge department for blood in stool and weakness. Renetta nt reports that he has had melena for the last 2 months and had noticed some maroon/red blood in his stool for last 3 weeks or so. Patient denies any hematemesis or vomiting. Patient currently receiving chemotherapy every 3 weeks for his liver cancer. Patient was evaluated in the emergency department labs are significant for white blood cell count 3.5 red blood cell 1.75 hemoglobin 6.2 hematocrit 18.7 MCV 107.3 platelet count 85 INR 1.64 potassium 5.2 CO2 17 BUN 46 creatinine 0.99 GFR 75 glucose 113 T bili 2.1D bili 1.7 AST [address] abdomen pelvis demonstrates severe hepatic cirrhosis with portal hypertension, ascites and extensive distal esophageal/epigastric varices. Patient blood pressure stable, was started on Protonix/octreotide drips in the emergency department, ED provider ordered 2 units packed red blood cells to be transfused now. GI is on-call at this time, will admit for further evaluation and management of upper GI bleed, anemia. - Past Medical/Surgical History -: Cirrhosis of liver/liver cancer/hepatitis C/history of alcohol abuse -: Anxiety -: None Psychosocial/ Personal History: Patient is unemployed, lives at home with his - Family History Family History: Reviewed- Non-Contributory - Social History Smoking Status: Never smoker Alcohol use: No CD- Drugs: No Caffeine use: No Place of Residence: Home Review of Systems 10-point ROS is otherwise unremarkable General: Weakness, Malaise Respiratory: Shortness of Breath Gastrointestinal: Distention, Melena, As per HPI Physical Examination - Physical Exam General: Alert, In no apparent distress, Oriented x3 HEENT: Atraumatic, PERRLA, EOMI, Scleral icterus Neck: Supple, 2+ carotid pulse no bruit, No LAD, Without JVD or thyroid abnormality Respiratory: Clear to auscultation bilaterally, Normal air movement Cardiovascular: Regular rate/rhythm, Normal S1 S2 Capillary refill: <2 Seconds Gastrointestinal: Normal bowel sounds, No tenderness, Distended, Hepatosplenomegaly, Ascites Musculoskeletal: No tenderness Integumentary: No rashes Neurological: Normal speech, Normal strength at 5/5 x4 extr, Normal tone, Normal affect - Studies Laboratory Data (last 24 hrs) 06/16/21 21:20: PT 19.0 H, INR 1.64, APTT 29.3 06/16/21 21:20: WBC 3.50 L, Hgb 6.2 L*, Hct 18.7 L*, Plt Count 85 L 06/16/21 21:20: Sodium 136, Potassium 5.2 H, BUN 46 H, Creatinine 0.99, Glucose 113 H, Total Bilirubin 2.1 H, AST 1223 H*, ALT 465 H*, Alkaline Phosphatase 152 H, Lipase 329 Assessment and Plan - Plan Assessment: Acute blood loss anemia secondary to upper GI bleed complicated with history of cirrhosis of the liver/liver cancer/hepatitis C and history of alcohol abuse Plan: Acute blood loss anemia secondary to upper GI bleed complicated with history of cirrhosis of the liver/liver cancer/hepatitis C and history of alcohol abuse: Continue octreotide, Protonix drips are started in the emergency department, patient is to be n.p.o. for possible scope/intervention. Transfuse 2 unit packed red blood cells now, trend CBC every 6 hour. Patient without any hematemesis, reports bleeding over the period of last 2 months with recent c hange to maroon/red stool in the last 3 weeks. Will provide patient medication for pain and anxiety related to his diagnosis of terminal cancer. Patient is DNR. DVT PPX: SCDs given GI bleed Code status: DNR Discharge Plan: Home Plan to discharge in: Greater than 2 days - Advance Directives Does patient have a Living Will: No Does patient have a Durable POA for Healthcare: No - Code Status/Comfort Care Code Status Assessed: Yes (DNR) Critical Care: No Time Spent Managing Pts Care (In Minutes): 55
[2021-06-17] MEDS ORDERED: NA CHLORIDE 0.9% 250 ML ONE ×3 (01:33→20:17)
[2021-06-17] MEDS ORDERED: PANTOPRAZOLE INJ 80 MG in NA CHLORIDE 0.9% 250 ML IV SCH (05:57)
[2021-06-17] MEDS ORDERED: ONDANSETRON 4 MG/2 ML VIAL IV PRN (05:57)
[2021-06-17] MEDS ORDERED: OCTREOTIDE 500 MCG in NA CHLORIDE 0.9% 500 ML IV SCH (05:57)
[2021-06-17] MEDS: D5 0.45 NS 1,000 ML IV SCH ×2 (05:57→15:57)
[2021-06-17] MEDS ORDERED: D5 0.45 NS 1,000 ML IV ONE (06:02)
--- NOTE | 2021-06-17 06:21 | P.PN ---
Subjective Date of Service: 06/17/21 Primary Care Provider: Dr. Carter Chief Complaint: UGIB Subjective: Other (Patient very ill. Patient with history of liver cancer, liver cirrhosis, gastric varices.) Physical Examination - Studies Laboratory Data (last 24 hrs) 06/16/21 21:20: PT 19.0 H, INR 1.64, APTT 29.3 06/16/21 21:20: WBC 3.50 L, Hgb 6.2 L*, Hct 18.7 L*, Plt Count 85 L 06/16/21 21:20: Sodium 136, Potassium 5.2 H, BUN 46 H, Creatinine 0.99, Glucose 113 H, Total Bilirubin 2.1 H, AST 1223 H*, ALT 465 H*, Alkaline Phosphatase 152 H, Lipase 329 Assessment & Plan Discharge Plan: Home Plan to discharge in: Greater than 2 days Physician Review Additional Text: COVID: negative CXR: COMPARISON: May 25, 2021 FINDINGS: The lungs appear clear of acute infiltrate. The heart is normal size. Aorta is tortuous/ectatic IMPRESSION: No acute abnormalities displayed CT scan Ab/Pelvis: Findings Lungs: Lower lungs clear Abdomen: Liver slightly heterogeneous and lobulated in contour. There is no biliary dilatation. Cholecystectomy has been performed. There is a small hiatal hernia. Stomach is distended with food material and air. There is multiple large gastric and distal esophageal varices. Scattered chronic calcifications of the pancreas. Spleen is enlarged measuring 15.7 cm. There is moderate upper abdominal ascites. Adrenal glands are normal. There are several cysts in the upper pole of the right kidney measuring 4.8 cm. No hydronephrosis noted. Abdominal aorta is densely calcified without aneurysm. No free air. No retroperitoneal adenopathy. Pelvis: shows no obstruction. Urinary bladder is unremarkable. Large amount of free pelvic fluid noted. Appendix not seen Skeleton: there are no acute osseous findings. No suspicious bony lesions. Impression Severe hepatic cirrhosis with portal hypertension, ascites and extensive distal esophageal/gastric varices. Physical exam: General: Increased lethargy. Patient oriented. HEENT: Atraumatic, PERRLA, EOMI, Scleral icterus Neck: Supple, 2+ carotid pulse no bruit, No LAD, Without JVD or thyroid abnormality Respiratory: Clear to auscultation bilaterally, Normal air movement Cardiovascular: Regular rate/rhythm, Normal S1 S2 Capillary refill: <2 Seconds Gastrointestinal: Normal bowel sounds, No tenderness, Distended, Hepatosplenomegaly, Ascites Musculoskeletal: No tenderness Integumentary: No rashes Neurological: Normal speech, Normal strength at 5/5 x4 extr, Normal tone, Normal affect Impression: Melena with acute blood loss anemia secondary to upper GI bleed likely related to esophageal/gastric varices with CT scan showing severe hepatic cirrhosis with portal hypertension, ascites and extensive distal esophageal/gastric varices complicated with liver cancer, hepatitis C and prior alcohol use Elevated liver function likely related to above Splenomegaly secondary to above History of hypertension Plan: Melena with acute blood loss anemia secondary to upper GI bleed likely related to esophageal/gastric varices with CT scan showing severe hepatic cirrhosis with portal hypertension, ascites and extensive distal esophageal/gastric varices complicated with liver cancer, hepatitis C and prior alcohol use: Case discussed at length with GI. Patient will be transferred to ICU for close monitoring. Gastric/esophageal varices bleed likely. Patient has been given 1 unit of blood and 1 unit of platelet so far. Patient will receive another unit of blood and unit of platelet along with FFP. Initial hemoglobin 6.2. Now 7.4. Initial platelet count 85 now 19. Patient has been started on octreotide drip, Protonix drip and IV Rocephin. Continue with IV fluids. Will monitor closely. Patient n.p.o. at this time. Strict bed rest. Patient to have emergent EGD soon to evaluate bleeding. Patient may require further intervention to control bleeding. Continue to monitor CBC and CMP closely. Case discussed at length with patient and . Patient understands the severity of his illness. Advanced directives readdressed. Patient remains DO NOT RESUSCITATE. We will continue to monitor closely. Elevated liver function likely related to above: Continue to monitor liver function. Splenomegaly secondary to above: Overall stable. Will monitor closely. History of hypertension: Hold blood pressure medication at this time DVT PPX: SCDs Code status: This was readdressed in detail with patient and . Patient remains DO NOT RESUSCITATE. Discharge Plan: Home at discharge Time Spent Managing Pts Care (In Minutes): 55
[2021-06-17 08:30] VITALS: BMI 26.8
[2021-06-17 08:35] LABS: Absolute Lymphocytes (CBC) 0.2 K/uL (0.7-4.9); Basophils % 0.6 % (0-1.3); Hematocrit 21.9 % (39.6-49.0); Lymphocytes % 6.7 % (15.3-44.8); MPV 7.4 fL (7.6-11.3); RBC Red Blood Cell Count 2.12 M/uL (4.33-5.43)
[2021-06-17] MEDS: OCTREOTIDE 500 MCG in NA CHLORIDE 0.9% 500 ML IV SCH ×3 (08:40→22:20)
[2021-06-17 09:10] LABS: Blood Morphology Comment NOTED (NOT SEEN); Macrocytosis 1+; Platelet Estimate DECR; Rouleau NOTED; White Blood Cell Scan OK (OK)
[2021-06-17 09:25] LABS: Albumin 1.1 g/dL (3.4-5.0); Alkaline Phosphatase 170 U/L (45-117); BUN Blood Urea Nitrogen 42 mg/dL (7-18); Bicarbonate 19 mmol/L (21-32); Bilirubin Total 2.2 mg/dL (0.2-1.0); Glucose Level 103 mg/dL (74-106); Magnesium 1.9 mg/dL (1.8-2.4); Potassium 4.8 mmol/L (3.5-5.1); Protein, Total 6.9 g/dL (6.4-8.2); Sodium Level 139 mmol/L (136-145)
[2021-06-17 09:27] LABS: ALT/SGPT 856 U/L (12-78); AST/SGOT 2257 U/L (15-37)
[2021-06-17] MEDS ORDERED: OCTREOTIDE ACETATE 100 MCG/ML IV ONE (09:55)
[2021-06-17] MEDS ORDERED: CEFTRIAXONE 2,000 MG in NA CHLORIDE 0.9% 100 ML IV ONE (09:56)
--- NOTE | 2021-06-17 12:04 | EKG ---
Test Date: 2021-06-16 Test Time: 21:26:14 Principal Secretary: DEMETRIUS MEASUREMENT RESULTS: Intervals: Rate: 77 ID: QRSD: [id number] QT: 404 QTc: 457 Vernon: P: ID: QRS: [id number] T: 26 INTERPRETIVE STATEMENTS: Accelerated Junctional rhythm Low voltage QRS Abnormal ECG No previous ECG available for comparison Electronically Signed On 06-17-21 12:02:45 TELEMARKETING FUNDRAISER by Ridge Harris
[2021-06-17] MEDS ORDERED: Ringers Lactate 1,000 ML IV ONE (12:22)
[2021-06-17 12:28] LABS: Absolute Lymphocytes (CBC) 0.2 K/uL (0.7-4.9); Basophils % 0.4 % (0-1.3); Hematocrit 22.1 % (39.6-49.0); Lymphocytes % 7.8 % (15.3-44.8); MPV 7.7 fL (7.6-11.3); RBC Red Blood Cell Count 2.18 M/uL (4.33-5.43)
--- NOTE | 2021-06-17 13:28 | RAD REPORT ---
EXAM DESCRIPTION: CT - Abdomen Pelvis W Contrast - 06/17/2021 6:47 am COMPARISON: None. TECHNIQUE: CT ABDOMEN PELVIS WITH IV CONTRAST on 06/16/2021 8:57 PM SENIOR MANAGING DIRECTOR This exam was performed according to our departmental dose-optimization program, which includes autom ated exposure control, adjustment of the mA and/or kV according to patient size and/or use of iterati ve reconstruction technique. FINDINGS: Lower lungs are clear. Abdomen: Liver is slightly heterogeneous and lobulated in contour. There is no biliary dilatation. Ch olecystectomy was performed. There is a small hiatal hernia. The stomach is distended with food mater ial and air. There are multiple large gastric and distal esophageal varices. There are scattered brass reclaimer beulah calcifications of the pancreas. Spleen is enlarged measuring 15.7 cm. There is moderate upper abd ominal ascites. Adrenal glands are normal. There are several cysts in the upper pole of the right kid david measuring up to 4.8 cm. There is no hydronephrosis. Abdominal aorta is densely calcified without aneurysm. There is no free air. There is no retroperiton eal adenopathy. Pelvis: There is no bowel obstruction. Urinary bladder is unremarkable. There is large amount of free pelvic fluid. Appendix is not well seen. Skeleton: There are no acute osseous findings. No suspicious bony lesions. IMPRESSION: Severe hepatic cirrhosis with portal hypertension, ascites and extensive distal esophage al/epigastric varices. Electronically signed by: Jose G Olsen MD 06/16/2021 11:14 PM SENIOR MANAGING DIRECTOR Due to temporary technical issues with the PACS/Fluency reporting system, reports are being signed by the in house radiologist without review as a courtesy to ensure prompt reporting. The interpreting r adiologist is fully responsible for the content of the report.
[2021-06-17 13:51] LABS: Anisocytosis 1+; Blood Morphology Comment NOTED (NOT SEEN); Macrocytosis 1+; Platelet Estimate DECR; Rouleau NOTED
--- NOTE | 2021-06-17 14:07 | ENDO RPT ---
[address], [address] EGD PROCEDURE REPORT EXAM DATE: 06/17/2021 PATIENT NAME: Vinicio Jean MR#: [id number] BIRTHDATE: 1950 ATTENDING: Tai [address] Dr STATUS: inpatient - 7 BAR POINTER: Malena Matos RN, Kaela Powell, and Carolyne Andre CST INDICATIONS: The patient is a 70 yr old Male here for an EGD due to melenic bleeding, anemia, and ETOH cirrhosis PROCEDURE PERFORMED: EGD with banding MEDICATIONS: Per Anesthesia. TOPICAL ANESTHETIC: none CONSENT: The patient understands the risks and benefits of the procedure and understands that these risks include, but are not limited to: sedation, allergic reaction, infection, perforation and/or bleeding. Alternative means of evaluation and treatment include, among others: physical exam, x-rays, and/or surgical intervention. The patient elects to proceed with this endoscopic procedure. DESCRIPTION OF PROCEDURE: During intra-op preparation period all mechanical medical equipment was checked for proper function. Hand hygiene and appropriate measures for infection prevention was taken. Procedure, possible complications, and alternatives including but not limited to the possibility of bleeding, perforation, tear, infection, sepsis, need for surgery, need for blood transfusion, and anesthesia related complications were explained to the patient. After the risks, benefits and alternatives of the procedure were thoroughly explained, Informed consent was verified, confirmed and timeout was successfully executed by the treatment team. The patient was placed in the left lateral position. The patient was anesthetized with topical anesthesia. Through the anesthetized oropharyngeal area, the scope was passed without any difficulty. The EG-[id number] ([id number]) endoscope was introduced through the mouth and advanced to the stomach cardia. Retroflexion was not performed. The gastroscope was then slowly withdrawn and removed. Three columns of grade III varices were found in the mid esophagus. Esophageal bandings X6 were performed. Dark heme fluid / blood clots were found in the ADVERSE EVENTS: There were no complications. IMPRESSIONS: 1. Three columns of grade III varices in the mid to distal esophagus, s/p banding X6 2. Dark heme fluid / blood clots in the total stomach (only able to visualize RECOMMENDATIONS: REPEAT EXAM: Tai Wagner Dr eSigned: Tai Wagner Dr 06/17/2021 2:07 PM cc: CPT CODES: ICD9 CODES: PATIENT NAME: Vinicio Jean MR#: [id number]
--- NOTE | 2021-06-17 14:13 | ENDO RPT ---
[address], [address] EGD PROCEDURE REPORT EXAM DATE: 06/17/2021 PATIENT NAME: Vinicio Jean MR#: [id number] BIRTHDATE: 1950 ATTENDING: Tai Wagner Dr STATUS: inpatient - 7 TURFGR[employer] MANAGEMENT PROFESSOR: Malena Matos RN, Kaela Powell, and Carolyne Andre CST INDICATIONS: The patient is a 70 yr old Male here for an EGD due to melenic bleeding, anemia, and ETOH cirrhosis PROCEDURE PERFORMED: EGD with banding MEDICATIONS: Per Anesthesia. TOPICAL ANESTHETIC: none CONSENT: The patient understands the risks and benefits of the procedure and understands that these risks include, but are not limited to: sedation, allergic reaction, infection, perforation and/or bleeding. Alternative means of evaluation and treatment include, among others: physical exam, x-rays, and/or surgical intervention. The patient elects to proceed with this endoscopic procedure. DESCRIPTION OF PROCEDURE: During intra-op preparation period all mechanical medical equipment was checked for proper function. Hand hygiene and appropriate measures for infection prevention was taken. Procedure, possible complications, and alternatives including but not limited to the possibility of bleeding, perforation, tear, infection, sepsis, need for surgery, need for blood transfusion, and anesthesia related complications were explained to the patient. After the risks, benefits and alternatives of the procedure were thoroughly explained, Informed consent was verified, confirmed and timeout was successfully executed by the treatment team. The patient was placed in the left lateral position. The patient was anesthetized with topical anesthesia. Through the anesthetized oropharyngeal area, the scope was passed without any difficulty. The EG-[id number] ([id number]) endoscope was introduced through the mouth and advanced to the stomach cardia. Retroflexion was not performed. The gastroscope was then slowly withdrawn and removed. Three columns of grade III varices were found in the mid esophagus. Esophageal bandings X6 were performed. Dark heme fluid / blood clots were found in the ADVERSE EVENTS: There were no complications. IMPRESSIONS: 1. Three columns of grade III varices in the mid to distal esophagus, s/p banding X6 2. Dark heme fluid / blood clots in the total stomach (only able to visualize RECOMMENDATIONS: 1. continue IV Octreotide / Ceftriaxone 2. continue acid suppression therapy 3. continue ICU monitoring and support. NPO today. Clear liquids tomorrow if stable REPEAT EXAM: Return in 3 week(s) for EGD. Tai Wagner Dr eSigned: Tai Wagner Dr 06/17/2021 2:12 PM Revised: 06/17/2021 2:12 PM cc: Enrico Marshall D.O. CPT CODES: ICD9 CODES: PATIENT NAME: Jean, Vinicio A. MR#: [id number]
[2021-06-17] MEDS ORDERED: NA CHLORIDE 0.9% 500 ML ONE ×2 (14:48→21:46)
[2021-06-17] MEDS: PANTOPRAZOLE INJ 80 MG in NA CHLORIDE 0.9% 250 ML IV SCH ×2 (18:16→20:30)
[2021-06-17 19:10] LABS: Absolute Lymphocytes (CBC) 0.1 K/uL (0.7-4.9); Basophils % 0.3 % (0-1.3); Lymphocytes % 5.6 % (15.3-44.8); MPV 7.8 fL (7.6-11.3); RBC Red Blood Cell Count 1.99 M/uL (4.33-5.43)
[2021-06-17 19:14] LABS: Hematocrit 20.1 % (39.6-49.0)
[2021-06-17 19:17] LABS: Protime INR 1.41
[2021-06-18] MEDS: D5 0.45 NS 1,000 ML IV SCH ×3 (01:57→06:36)
[2021-06-18] MEDS: OCTREOTIDE 500 MCG in NA CHLORIDE 0.9% 500 ML IV SCH ×3 (04:00→18:09)
[2021-06-18] MEDS ORDERED: D5 0.45 NS 1,000 ML IV ONE (04:42)
[2021-06-18] MEDS: PANTOPRAZOLE INJ 80 MG in NA CHLORIDE 0.9% 250 ML IV SCH ×3 (04:57→15:29)
[2021-06-18] MEDS ORDERED: NA CHLORIDE 0.9% 500 ML IV ONE (05:01)
[2021-06-18 05:17] LABS: Absolute Lymphocytes (CBC) 0.1 K/uL (0.7-4.9); Basophils % 0.2 % (0-1.3); Hematocrit 25.3 % (39.6-49.0); Lymphocytes % 4.9 % (15.3-44.8); MPV 7.6 fL (7.6-11.3); RBC Red Blood Cell Count 2.61 M/uL (4.33-5.43)
[2021-06-18 05:45] LABS: Albumin 1.3 g/dL (3.4-5.0); Alkaline Phosphatase 154 U/L (45-117); BUN Blood Urea Nitrogen 25 mg/dL (7-18); Bicarbonate 19 mmol/L (21-32); Glucose Level 121 mg/dL (74-106); Magnesium 1.8 mg/dL (1.8-2.4); Potassium 3.6 mmol/L (3.5-5.1); Protein, Total 6.7 g/dL (6.4-8.2); Sodium Level 140 mmol/L (136-145)
[2021-06-18 05:51] LABS: AST/SGOT 1511 U/L (15-37)
[2021-06-18 05:52] LABS: ALT/SGPT 676 U/L (12-78)
--- NOTE | 2021-06-18 06:13 | P.PN ---
Subjective Date of Service: 06/18/21 Primary Care Provider: Dr. Carter Chief Complaint: UGIB Subjective: Improving Physical Examination - Vital Signs Temperature: 99 F Blood Pressure: 128/76 Pulse: 71 Respirations: 27 Pulse Ox (%): 97 Assessment & Plan Discharge Plan: Home Plan to discharge in: 48 Hours Physician Review Additional Text: COVID: negative CXR: COMPARISON: May 25, 2021 FINDINGS: The lungs appear clear of acute infiltrate. The heart is normal size. Aorta is tortuous/ectatic IMPRESSION: No acute abnormalities displayed CT scan Ab/Pelvis: Findings Lungs: Lower lungs clear Abdomen: Liver slightly heterogeneous and lobulated in contour. There is no biliary dilatation. Cholecystectomy has been performed. There is a small hiatal hernia. Stomach is distended with food material and air. There is multiple large gastric and distal esophageal varices. Scattered chronic calcifications of the pancreas. Spleen is enlarged measuring 15.7 cm. There is moderate upper abdominal ascites. Adrenal glands are normal. There are several cysts in the upper pole of the right kidney measuring 4.8 cm. No hydronephrosis noted. Abdominal aorta is densely calcified without aneurysm. No free air. No retroperitoneal adenopathy. Pelvis: shows no obstruction. Urinary bladder is unremarkable. Large amount of free pelvic fluid noted. Appendix not seen Skeleton: there are no acute osseous findings. No suspicious bony lesions. Impression Severe hepatic cirrhosis with portal hypertension, ascites and extensive distal esophageal/gastric varices. EGD: No complications Impression: 3 columns of grade 3 varices in the mid to distal esophagus, status post banding x6 Dark heme fluid, blood clots in the stomach Physical exam: General: Increased lethargy. Patient oriented. HEENT: Atraumatic, PERRLA, EOMI, Scleral icterus Neck: Supple, 2+ carotid pulse no bruit, No LAD, Without JVD or thyroid abnormality Respiratory: Clear to auscultation bilaterally, Normal air movement Cardiovascular: Regular rate/rhythm, Normal S1 S2 Capillary refill: <2 Seconds Gastrointestinal: Normal bowel sounds, No tenderness, Distended, Hepatosplenomegaly, Ascites Musculoskeletal: No tenderness Integumentary: No rashes Neurological: Normal speech, Normal strength at 5/5 x4 extr, Normal tone, Normal affect Impression: Melena with acute blood loss anemia secondary to upper GI bleed/gastric varices status post EGD showing three columns of grade 3 varices in the mid to distal esophagus status post banding x6 complicated with CT scan showing severe hepatic cirrhosis with portal hypertension, ascites and extensive distal esophageal/gastric varices; liver cancer; hepatitis C; and prior alcohol use Elevated liver function likely related to above Splenomegaly secondary to above History of hypertension Ascites Plan: Melena with acute blood loss anemia secondary to upper GI bleed/gastric varices status post EGD showing three columns of grade 3 varices in the mid to distal esophagus status post banding x6 complicated with CT scan showing severe hepatic cirrhosis with portal hypertension, ascites and extensive distal esophageal/gastric varices; liver cancer; hepatitis C; and prior alcohol use: Patient doing well at this time. Hemoglobin stable after 4 units total of packed red blood cells given. Hemoglobin initially 6.2. Now stable at 8.6. Platelets and FFP also given yesterday. Platelet count up to 46. Patient remains on IV Protonix and octreotide drip. Patient remains also on IV Rocephin. Will decrease IV fluids to 50 cc/h. Patient with increased ascites. Will arrange for radiology assisted ultrasound-guided paracentesis for tomorrow. No more than 2 L to be removed. Albumin to be given thereafter. Will send fluid for analysis. Continue to monitor hemoglobin closely. Recheck CBC later today. Maintain hemoglobin above 8.0. Will discuss case further with GI. Will check to see when patient can be started on clear liquids. Anticipate continued improvement. Elevated liver function likely related to above: Remains elevated. Slightly improved. Continue to monitor liver function. Splenomegaly secondary to above: Overall stable. Will monitor closely. History of hypertension: Hold blood pressure medication at this time Ascites: We will arrange for radiology assisted ultrasound-guided paracentesis for tomorrow. No more than 2 L to be removed. Albumin to be given after procedure. Will send fluid for analysis. DVT PPX: SCDs Code status: This was readdressed in detail with patient and . Patient remains DO NOT RESUSCITATE. Discharge Plan: Home at discharge Time Spent Managing Pts Care (In Minutes): 55
[2021-06-18] MEDS ORDERED: MAGNESIUM SULFATE 1 gm IVPB 1 GM/100 ML BAG IV ONE ×2 (06:41→06:44)
[2021-06-18] MEDS ORDERED: KCL 20 MEQ/100 mL IVPB 100 ML IV ONE (08:05)
[2021-06-18] MEDS ORDERED: KCL 20 MEQ/100 mL IVPB 20 MEQ/100 ML BAG IV SCH (09:00)
[2021-06-18 12:22] LABS: Absolute Lymphocytes (CBC) 0.1 K/uL (0.7-4.9)
[2021-06-18 12:28] LABS: Basophils % 0.1 % (0-1.3); Hematocrit 27.7 % (39.6-49.0); MPV 7.2 fL (7.6-11.3); RBC Red Blood Cell Count 2.83 M/uL (4.33-5.43)
[2021-06-18 13:09] LABS: Anisocytosis 1+; Blood Morphology Comment NOTED (NOT SEEN); Platelet Estimate DECR
[2021-06-18] MEDS: carvediloL 3.125 MG TAB PO SCH (18:00)
[2021-06-18] MEDS ORDERED: carvediloL 6.25 MG TAB ONE (18:08)
[2021-06-19] MEDS: PANTOPRAZOLE INJ 80 MG in NA CHLORIDE 0.9% 250 ML IV SCH ×2 (01:21→02:30)
[2021-06-19] MEDS ORDERED: D5 0.45 NS 1,000 ML IV ONE (01:34)
[2021-06-19] MEDS: D5 0.45 NS 1,000 ML IV SCH (01:35)
[2021-06-19] MEDS: OCTREOTIDE 500 MCG in NA CHLORIDE 0.9% 500 ML IV SCH ×4 (05:06→10:30)
[2021-06-19] MEDS ORDERED: carvediloL 6.25 MG TAB ONE (05:09)
[2021-06-19] MEDS: carvediloL 3.125 MG TAB PO SCH ×2 (05:09→17:51)
[2021-06-19 05:43] LABS: Absolute Lymphocytes (CBC) 0.1 K/uL (0.7-4.9); Basophils % 0.2 % (0-1.3); Hematocrit 25.6 % (39.6-49.0); RBC Red Blood Cell Count 2.59 M/uL (4.33-5.43)
[2021-06-19 06:06] LABS: Albumin 1.1 g/dL (3.4-5.0); Alkaline Phosphatase 149 U/L (45-117); BUN Blood Urea Nitrogen 25 mg/dL (7-18); Bicarbonate 19 mmol/L (21-32); Bilirubin Total 3.5 mg/dL (0.2-1.0); Glucose Level 135 mg/dL (74-106); Magnesium 1.8 mg/dL (1.8-2.4); Potassium 3.4 mmol/L (3.5-5.1); Protein, Total 6.6 g/dL (6.4-8.2); Sodium Level 138 mmol/L (136-145)
--- NOTE | 2021-06-19 06:08 | P.PN ---
Subjective Date of Service: 06/19/21 Primary Care Provider: Dr. Carter Chief Complaint: UGIB Subjective: Improving, Doing well Physical Examination - Vital Signs Temperature: 98.1 F Blood Pressure: 127/74 Pulse: 60 Respirations: 20 Pulse Ox (%): 98 Assessment & Plan Discharge Plan: Home Plan to discharge in: Greater than 2 days Physician Review Additional Text: COVID: negative CXR: COMPARISON: May 25, 2021 FINDINGS: The lungs appear clear of acute infiltrate. The heart is normal size. Aorta is tortuous/ectatic IMPRESSION: No acute abnormalities displayed CT scan Ab/Pelvis: Findings Lungs: Lower lungs clear Abdomen: Liver slightly heterogeneous and lobulated in contour. There is no biliary dilatation. Cholecystectomy has been performed. There is a small hiatal hernia. Stomach is distended with food material and air. There is multiple large gastric and distal esophageal varices. Scattered chronic calcifications of the pancreas. Spleen is enlarged measuring 15.7 cm. There is moderate upper abdominal ascites. Adrenal glands are normal. There are several cysts in the upper pole of the right kidney measuring 4.8 cm. No hydronephrosis noted. Abdominal aorta is densely calcified without aneurysm. No free air. No retroperitoneal adenopathy. Pelvis: shows no obstruction. Urinary bladder is unremarkable. Large amount of free pelvic fluid noted. Appendix not seen Skeleton: there are no acute osseous findings. No suspicious bony lesions. Impression Severe hepatic cirrhosis with portal hypertension, ascites and extensive distal esophageal/gastric varices. EGD: No complications Impression: 3 columns of grade 3 varices in the mid to distal esophagus, status post banding x6 Dark heme fluid, blood clots in the stomach Physical exam: General: Increased lethargy. Patient oriented. HEENT: Atraumatic, PERRLA, EOMI, Scleral icterus Neck: Supple, 2+ carotid pulse no bruit, No LAD, Without JVD or thyroid abnormality Respiratory: Clear to auscultation bilaterally, Normal air movement Cardiovascular: Regular rate/rhythm, Normal S1 S2 Capillary refill: <2 Seconds Gastrointestinal: Ascites noted but soft Musculoskeletal: No tenderness Integumentary: No significant peripheral edema Neurological: Normal speech, Normal strength at 5/5 x4 extr, Normal tone, Normal affect Impression: Melena with acute blood loss anemia secondary to upper GI bleed/gastric varices status post EGD showing three columns of grade 3 varices in the mid to distal esophagus status post banding x6 complicated with CT scan showing severe hepatic cirrhosis with portal hypertension, ascites and extensive distal esophageal/gastric varices; liver cancer; hepatitis C; and prior alcohol use Elevated liver function likely related to above Splenomegaly secondary to above Hypertension Ascites Plan: Melena with acute blood loss anemia secondary to upper GI bleed/gastric varices status post EGD showing three columns of grade 3 varices in the mid to distal esophagus status post banding x6 complicated with CT scan showing severe hepatic cirrhosis with portal hypertension, ascites and extensive distal esophageal/gastric varices; liver cancer; hepatitis C; and prior alcohol use: Patient has done well. Hemoglobin stable at 8.6. Platelets stable at 43. Patient has received 4 units of blood. No evidence of bleeding at this time. Case discussed at length with GI. GI recommends to continue to advance diet to a soft diet as tolerated. Patient currently on clear liquid. Will trial full liquid today. Will change IV Protonix drip to 40 mg IV twice daily. Tomorrow will wean off octreotide drip every 8 hours by half until off. Spoke with radiology about scheduled paracentesis today. This cannot be done as there was minimal fluid to remove and also his platelets were low. Therefore we will cancel paracentesis at this time. Consider paracentesis in the near future. Will ambulate with physical therapy. We will add Aldactone. IV fluids have been discontinued. Continue with carvedilol. Spoke with at length concerning plan of care. Elevated liver function likely related to above: Liver function improved continue to monitor liver function. Splenomegaly secondary to above: Overall stable. Will monitor closely. Hypertension: Patient was started on carvedilol. Continue carvedilol to maintain blood pressure less than 110 systolic. Will monitor and adjust appropriately. Ascites: Patient was scheduled for paracentesis today. This cannot be done as there was minimal fluid to remove per radiology. Will cancel paracentesis for now. Consider paracentesis in the near future if more fluid develops. DVT PPX: SCDs Code status: This was readdressed in detail with patient and . Patient remains DO NOT RESUSCITATE. Discharge Plan: Home at discharge Time Spent Managing Pts Care (In Minutes): 55
[2021-06-19 06:09] LABS: ALT/SGPT 552 U/L (12-78); AST/SGOT 960 U/L (15-37)
[2021-06-19] MEDS ORDERED: MAGNESIUM SULFATE 1 gm IVPB 1 GM/100 ML BAG IV ONE ×2 (06:25→06:30)
--- NOTE | 2021-06-19 08:37 | RAD REPORT ---
EXAM DESCRIPTION: US - Abdomen Exam Limited - 06/19/2021 8:20 am CLINICAL HISTORY: DO NOT REMOVE MORE THAN 2L Ascites COMPARISON: Abdomen Pelvis W Contrast dated 06/16/2021 FINDINGS: Limited abdominal sonography was performed and dissipation of therapeutic paracentesis. Pr eliminary imaging showed only small pockets in the mid and lower abdomen. Overall quantity was deemed insufficient for a therapeutic procedure. Patient platelet count was 43. Values below 50 are considered as elevated risk for bleeding complicat ion. After discussion with the referring physician, the therapeutic procedure was canceled. Due to th e platelet count the possible diagnostic paracentesis was deferred. IMPRESSION: Small amount of ascites is identifiable insufficient for therapeutic paracentesis.
[2021-06-19] MEDS ORDERED: KCL 20 MEQ/100 mL IVPB 100 ML IV ONE ×2 (08:53→12:27)
[2021-06-19] MEDS ORDERED: NA CHLORIDE 0.9% 100 ML ONE (08:54)
[2021-06-19] MEDS: KCL 20 MEQ/100 mL IVPB 20 MEQ/100 ML BAG IV SCH ×2 (10:31→13:16)
[2021-06-19] MEDS ORDERED: SODIUM CHLORIDE 0.9% 10ML INJ IV PRN (11:56)
[2021-06-19] MEDS ORDERED: SPIRONOLACTONE 25 MG TABLET ONE (13:15)
[2021-06-19] MEDS: SPIRONOLACTONE 25 MG TABLET PO SCH (13:16)
[2021-06-19 20:20] LABS: BUN Blood Urea Nitrogen 23 mg/dL (7-18); Bicarbonate 19 mmol/L (21-32); Glucose Level 123 mg/dL (74-106); Potassium 4.3 mmol/L (3.5-5.1); Sodium Level 137 mmol/L (136-145)
[2021-06-19] MEDS: PANTOPRAZOLE 40 MG INJ IVP SCH (21:00)
[2021-06-19] MEDS: ENSURE HIGH PROTEIN 237 ML CAN PO SCH (21:00)
[2021-06-19] MEDS ORDERED: PANTOPRAZOLE 40 MG INJ ONE (21:33)
--- NOTE | 2021-06-19 21:54 | P.PN ---
Subjective Date of Service: 06/19/21 Primary Care Provider: Dr. Carter Chief Complaint: UGIB, melena, cirrhosis, esophageal varices Subjective: Improving (On bedside commode with . States he feels much better. Before 2 days ago he was near obtunded, and now alert and oriented. He is tolerating diet. No further bleeding noted. Hgb has risen from 6.2 to 8.6 after 2 units total transfused. S/p EGD with 6 esophageal bands on varices and stomach), Other (stomach full of blood and blood clot. He continues on IV Octeotide and Ceftriaxone and Protonix.) Review of Systems 10-point ROS is otherwise unremarkable General: Weakness (Improved.) Neurological: Confusion (Improved.) Physical Examination - Vital Signs Temperature: 98.2 F Blood Pressure: 133/82 Pulse: 52 Respirations: 20 Pulse Ox (%): 98 - Physical Exam General: Alert, In no apparent distress, Oriented x2, Cooperative HEENT: Atraumatic, Normocephalic, PERRLA, EOMI Neck: Supple Respiratory: Normal air movement Cardiovascular: Regular rate/rhythm Neurological: Normal speech Assessment And Plan - Current Problems (Diagnosis) (1) Melena Current Visit: Yes Status: Acute (2) Cirrhosis, alcoholic Current Visit: Yes Status: Acute (3) Esophageal varices with bleeding Current Visit: Yes Status: Acute (4) Anemia Current Visit: Yes Status: Acute (5) Ascites Current Visit: Yes Status: Acute - Plan REC: 1) continue IV Octreotide for 5 days and then wean off slowly 2) continue IV Ceftriaxone 3) continue IV PPI therapy 4) repeat EGD in 3 weeks 5) advance diet to GI soft 6) Coreg, which has been added 7) continue Aldactone 8) consider Xifaxan for mortality benefit 9) goal hgb 7-8 Physician Review Additional Text: COVID: negative CXR: COMPARISON: May 25, 2021 FINDINGS: The lungs appear clear of acute infiltrate. The heart is normal size. Aorta is tortuous/ectatic IMPRESSION: No acute abnormalities displayed CT scan Ab/Pelvis: Findings Lungs: Lower lungs clear Abdomen: Liver slightly heterogeneous and lobulated in contour. There is no biliary dilatation. Cholecystectomy has been performed. There is a small hiatal hernia. Stomach is distended with food material and air. There is multiple large gastric and distal esophageal varices. Scattered chronic calcifications of the pancreas. Spleen is enlarged measuring 15.7 cm. There is moderate upper abdominal ascites. Adrenal glands are normal. There are several cysts in the upper pole of the right kidney measuring 4.8 cm. No hydronephrosis noted. Abdominal aorta is densely calcified without aneurysm. No free air. No retroperitoneal adenopathy. Pelvis: shows no obstruction. Urinary bladder is unremarkable. Large amount of free pelvic fluid noted. Appendix not seen Skeleton: there are no acute osseous findings. No suspicious bony lesions. Impression Severe hepatic cirrhosis with portal hypertension, ascites and extensive distal esophageal/gastric varices. EGD: No complications Impression: 3 columns of grade 3 varices in the mid to distal esophagus, status post banding x6 Dark heme fluid, blood clots in the stomach Physical exam: General: Increased lethargy. Patient oriented. HEENT: Atraumatic, PERRLA, EOMI, Scleral icterus Neck: Supple, 2+ carotid pulse no bruit, No LAD, Without JVD or thyroid abnormality Respiratory: Clear to auscultation bilaterally, Normal air movement Cardiovascular: Regular rate/rhythm, Normal S1 S2 Capillary refill: <2 Seconds Gastrointestinal: Ascites noted but soft Musculoskeletal: No tenderness Integumentary: No significant peripheral edema Neurological: Normal speech, Normal strength at 5/5 x4 extr, Normal tone, Normal affect Impression: Melena with acute blood loss anemia secondary to upper GI bleed/gastric varices status post EGD showing three columns of grade 3 varices in the mid to distal esophagus status post banding x6 complicated with CT scan showing severe hepatic cirrhosis with portal hypertension, ascites and extensive distal esophageal/gastric varices; liver cancer; hepatitis C; and prior alcohol use Elevated liver function likely related to above Splenomegaly secondary to above Hypertension Ascites Plan: Melena with acute blood loss anemia secondary to upper GI bleed/gastric varices status post EGD showing three columns of grade 3 varices in the mid to distal esophagus status post banding x6 complicated with CT scan showing severe hepatic cirrhosis with portal hypertension, ascites and extensive distal esophageal/gastric varices; liver cancer; hepatitis C; and prior alcohol use: Patient has done well. Hemoglobin stable at 8.6. Platelets stable at 43. Patient has received 4 units of blood. No evidence of bleeding at this time. Case discussed at length with GI. GI recommends to continue to advance diet to a soft diet as tolerated. Patient currently on clear liquid. Will trial full liquid today. Will change IV Protonix drip to 40 mg IV twice daily. Tomorrow will wean off octreotide drip every 8 hours by half until off. Spoke with radiology about scheduled paracentesis today. This cannot be done as there was minimal fluid to remove and also his platelets were low. Therefore we will cancel paracentesis at this time. Consider paracentesis in the near future. W ill ambulate with physical therapy. We will add Aldactone. IV fluids have been discontinued. Continue with carvedilol. Spoke with at length concerning plan of care. Elevated liver function likely related to above: Liver function improved continue to monitor liver function. Splenomegaly secondary to above: Overall stable. Will monitor closely. Hypertension: Patient was started on carvedilol. Continue carvedilol to maintain blood pressure less than 110 systolic. Will monitor and adjust appropriately. Ascites: Patient was scheduled for paracentesis today. This cannot be done as there was minimal fluid to remove per radiology. Will cancel paracentesis for now. Consider paracentesis in the near future if more fluid develops. DVT PPX: SCDs Code status: This was readdressed in detail with patient and . Patient remains DO NOT RESUSCITATE. Discharge Plan: Home at discharge
[2021-06-20] MEDS: OCTREOTIDE 500 MCG in NA CHLORIDE 0.9% 500 ML IV SCH ×3 (01:45→15:45)
[2021-06-20 05:42] LABS: Absolute Lymphocytes (CBC) 0.1 K/uL (0.7-4.9); Basophils % 0.4 % (0-1.3); Hematocrit 27.7 % (39.6-49.0); Lymphocytes % 6.9 % (15.3-44.8); MPV 7.5 fL (7.6-11.3); RBC Red Blood Cell Count 2.79 M/uL (4.33-5.43)
[2021-06-20] MEDS: carvediloL 3.125 MG TAB PO SCH ×2 (05:45→17:37)
[2021-06-20 06:00] LABS: Albumin 1.1 g/dL (3.4-5.0); Alkaline Phosphatase 168 U/L (45-117); BUN Blood Urea Nitrogen 24 mg/dL (7-18); Bicarbonate 20 mmol/L (21-32); Glucose Level 118 mg/dL (74-106); Magnesium 1.9 mg/dL (1.8-2.4); Potassium 4.1 mmol/L (3.5-5.1); Protein, Total 6.7 g/dL (6.4-8.2); Sodium Level 138 mmol/L (136-145)
[2021-06-20 06:01] LABS: ALT/SGPT 438 U/L (12-78); AST/SGOT 594 U/L (15-37)
--- NOTE | 2021-06-20 06:02 | P.PN ---
Subjective Date of Service: 06/20/21 Primary Care Provider: Dr. Carter Chief Complaint: UGIB, melena, cirrhosis, esophageal varices Subjective: Improving Physical Examination - Vital Signs Temperature: 97.0 F Blood Pressure: 95/63 Pulse: 53 Respirations: 23 Pulse Ox (%): 98 Assessment & Plan Discharge Plan: Home Plan to discharge in: 48 Hours Physician Review Additional Text: COVID: negative CXR: COMPARISON: May 25, 2021 FINDINGS: The lungs appear clear of acute infiltrate. The heart is normal size. Aorta is tortuous/ectatic IMPRESSION: No acute abnormalities displayed CT scan Ab/Pelvis: Findings Lungs: Lower lungs clear Abdomen: Liver slightly heterogeneous and lobulated in contour. There is no biliary dilatation. Cholecystectomy has been performed. There is a small hiatal hernia. Stomach is distended with food material and air. There is multiple large gastric and distal esophageal varices. Scattered chronic calcifications of the pancreas. Spleen is enlarged measuring 15.7 cm. There is moderate upper abdominal ascites. Adrenal glands are normal. There are several cysts in the upper pole of the right kidney measuring 4.8 cm. No hydronephrosis noted. Abdominal aorta is densely calcified without aneurysm. No free air. No retroperitoneal adenopathy. Pelvis: shows no obstruction. Urinary bladder is unremarkable. Large amount of free pelvic fluid noted. Appendix not seen Skeleton: there are no acute osseous findings. No suspicious bony lesions. Impression Severe hepatic cirrhosis with portal hypertension, ascites and extensive distal esophageal/gastric varices. EGD: No complications Impression: 3 columns of grade 3 varices in the mid to distal esophagus, status post banding x6 Dark heme fluid, blood clots in the stomach Physical exam: General: Increased lethargy. Patient oriented. HEENT: neck supple Respiratory: Clear to auscultation bilaterally, Normal air movement Cardiovascular: Regular rate/rhythm, Normal S1 S2 Capillary refill: <2 Seconds Gastrointestinal: Ascites noted but soft Musculoskeletal: No tenderness Integumentary: No significant peripheral edema Neurological: Normal speech, Normal strength at 5/5 x4 extr, Normal tone, Normal affect Impression: Melena with acute blood loss anemia secondary to upper GI bleed/gastric varices status post EGD showing three columns of grade 3 varices in the mid to distal esophagus status post banding x6 complicated with CT scan showing severe hepatic cirrhosis with portal hypertension, ascites and extensive distal esophageal/gastric varices; liver cancer; hepatitis C; and prior alcohol use Elevated liver function likely related to above Splenomegaly secondary to above Hypertension Ascites Plan: Melena with acute blood loss anemia secondary to upper GI bleed/gastric varices status post EGD showing three columns of grade 3 varices in the mid to distal esophagus status post banding x6 complicated with CT scan showing severe hepatic cirrhosis with portal hypertension, ascites and extensive distal esophageal /gastric varices; liver cancer; hepatitis C; and prior alcohol use: Patient has done well. Hemoglobin stable at 9.3. Platelets stable at 41. Patient has received 4 units of blood. No evidence of bleeding at this time. WBC 1.5. Case discussed with hematology. Continue with current plan of care. GI recommends to continue to advance diet to a soft diet as tolerated. Continue with IV Protonix 40 mg oral twice daily. Will wean off octreotide drip today. Wean off octreotide drip every 8 hours by half until off. Aldactone started yesterday. Continue carvedilol. Encourage ambulation with physical therapy. Anticipate home in the next 2 to 3 days. Elevated liver function likely related to above: Liver function improved continue to monitor liver function. Splenomegaly secondary to above: Overall stable. Will monitor closely. Hypertension: Continue carvedilol 3.125 mg 1 pill twice daily. Will monitor and adjust appropriately. Ascites: Case discussed with radiology yesterday. Paracentesis cannot be done as there was minimal fluid to remove per radiology. Consider paracentesis in the near future if more fluid develops. DVT PPX: SCDs Code status: This was readdressed in detail with patient and . Patient remains DO NOT RESUSCITATE. Discharge Plan: Home at discharge Time Spent Managing Pts Care (In Minutes): 55
[2021-06-20] MEDS ORDERED: POTASSIUM CL SA 10 MEQ TAB PO ONE (07:11)
[2021-06-20 08:11] LABS: Blood Morphology Comment NOT SEEN (NOT SEEN); Platelet Estimate DECR; White Blood Cell Scan OK (OK)
[2021-06-20] MEDS ORDERED: LACTULOSE 20 GM/30 ML UCUP ONE (08:13)
[2021-06-20] MEDS ORDERED: PANTOPRAZOLE 40 MG INJ ONE (08:13)
[2021-06-20] MEDS ORDERED: SPIRONOLACTONE 25 MG TABLET ONE (08:27)
[2021-06-20] MEDS ORDERED: CEFTRIAXONE 1000 MG/VIAL ONE (08:32)
[2021-06-20] MEDS ORDERED: NA CHLORIDE 0.9% 50 ML ONE (08:33)
[2021-06-20] MEDS: SPIRONOLACTONE 25 MG TABLET PO SCH (08:44)
[2021-06-20] MEDS: ENSURE HIGH PROTEIN 237 ML CAN PO SCH ×2 (08:44→21:13)
[2021-06-20] MEDS: CEFTRIAXONE 1,000 MG in NA CHLORIDE 0.9% 50 ML IVPB SCH (08:44)
[2021-06-20] MEDS: PANTOPRAZOLE 40 MG INJ IVP SCH ×2 (08:44→21:13)
[2021-06-20] MEDS: LACTULOSE 20 GM/30 ML UCUP PO SCH ×2 (08:44→21:12)
[2021-06-20] MEDS ORDERED: TRAMADOL 37.5mg/APAP 325mg PER TAB ONE (14:00)
[2021-06-20] MEDS: TRAMADOL 37.5mg/APAP 325mg PER TAB PO PRN (14:08)
[2021-06-20] MEDS: ALPRAZOLAM 0.25 MG TABLET PO PRN (18:38)
[2021-06-21] MEDS: OCTREOTIDE 500 MCG in NA CHLORIDE 0.9% 500 ML IV SCH ×3 (02:00→22:00)
[2021-06-21 05:45] LABS: Absolute Lymphocytes (CBC) 0.1 K/uL (0.7-4.9); Basophils % 1.3 % (0-1.3); Hematocrit 29.4 % (39.6-49.0); Lymphocytes % 6.9 % (15.3-44.8); MPV 7.1 fL (7.6-11.3); RBC Red Blood Cell Count 2.96 M/uL (4.33-5.43)
[2021-06-21 05:56] LABS: BUN Blood Urea Nitrogen 24 mg/dL (7-18); Bicarbonate 19 mmol/L (21-32); Glucose Level 102 mg/dL (74-106); Sodium Level 137 mmol/L (136-145)
[2021-06-21] MEDS: carvediloL 3.125 MG TAB PO SCH ×2 (06:17→17:28)
--- NOTE | 2021-06-21 06:28 | P.PN ---
Subjective Date of Service: 06/21/21 Primary Care Provider: Dr. Carter Chief Complaint: UGIB, melena, cirrhosis, esophageal varices Subjective: Improving, Doing well Physical Examination - Vital Signs Temperature: 97.3 F Blood Pressure: 138/75 Pulse: 60 Respirations: 18 Pulse Ox (%): 97 Assessment & Plan Discharge Plan: Home Plan to discharge in: 24 Hours Physician Review Additional Text: COVID: negative CXR: COMPARISON: May 25, 2021 FINDINGS: The lungs appear clear of acute infiltrate. The heart is normal size. Aorta is tortuous/ectatic IMPRESSION: No acute abnormalities displayed CT scan Ab/Pelvis: Findings Lungs: Lower lungs clear Abdomen: Liver slightly heterogeneous and lobulated in contour. There is no biliary dilatation. Cholecystectomy has been performed. There is a small hiatal hernia. Stomach is distended with food material and air. There is multiple large gastric and distal esophageal varices. Scattered chronic calcifications of the pancreas. Spleen is enlarged measuring 15.7 cm. There is moderate upper abdominal ascites. Adrenal glands are normal. There are several cysts in the upper pole of the right kidney measuring 4.8 cm. No hydronephrosis noted. Abdominal aorta is densely calcified without aneurysm. No free air. No retroperitoneal adenopathy. Pelvis: shows no obstruction. Urinary bladder is unremarkable. Large amount of free pelvic fluid noted. Appendix not seen Skeleton: there are no acute osseous findings. No suspicious bony lesions. Impression Severe hepatic cirrhosis with portal hypertension, ascites and extensive distal esophageal/gastric varices. EGD: No complications Impression: 3 columns of grade 3 varices in the mid to distal esophagus, status post banding x6 Dark heme fluid, blood clots in the stomach Physical exam: General: Alert, cooperative. Patient improved. Vital signs stable. Currently on 1 L per nasal cannula HEENT: neck supple Respiratory: Clear. Currently on 1 L per nasal cannula Cardiovascular: Regular rate/rhythm, Normal S1 S2 Capillary refill: <2 Seconds Gastrointestinal: Patient with ascites which is improved. Currently soft Musculoskeletal: No tenderness Integumentary: No significant peripheral edema Neurological: Normal speech, Normal strength at 5/5 x4 extr, Normal tone, Normal affect Impression: Melena with acute blood loss anemia secondary to upper GI bleed/gastric varices status post EGD showing three columns of grade 3 varices in the mid to distal esophagus status post banding x6 complicated with CT scan showing severe hepatic cirrhosis with portal hypertension, ascites and extensive distal esophageal/gastric varices; liver cancer; hepatitis C; and prior alcohol use Elevated liver function likely related to above Splenomegaly secondary to above Hypertension Ascites Plan: Melena with acute blood loss anemia secondary to upper GI bleed/gastric varices status post EGD showing three columns of grade 3 varices in the mid to distal esophagus status post banding x6 complicated with CT scan showing severe hepatic cirrhosis with portal hypertension, ascites and extensive distal esophageal/gastric varices; liver cancer; hepatitis C; and prior alcohol use: Patient continues to do well. White count 1.9, hemoglobin 9.8, platelet count 45. Overall stable. No further bleeding noted. Continue to wean off octreotide IV. Continue Protonix 40 mg IV twice daily. Continue to wean off o xygen. Will provide incentive spirometer. Physical therapy to continue to work with patient. Spoke with family at length concerning plan of care. Anticipate possible discharge as early as tomorrow if patient able to ambulate and off oxygen. Patient will continue with Aldactone 25 mg daily, carvedilol 6.125 mg 1 pill twice daily, lactulose twice daily, and Protonix 40 mg 1 pill twice daily. Patient will need repeat EGD in 3 weeks with GI. GI also recommended possibly adding Xifaxan twice daily as an outpatient. Case also discussed with oncology. Patient will need close follow-up with oncology. I will turn to service over to the hospitalist team tomorrow. I will plan of care with him. Elevated liver function likely related to above: Liver function improved continue to monitor liver function. Splenomegaly secondary to above: Overall stable. Will monitor closely. Hypertension: Blood pressure still slightly elevated. Will increase carvedilol to 6.25 mg 1 pill twice daily. Maintain blood pressure less than 110 systolic as recommended by GI due to his gastric varices. Ascites: Ascites improved. Case was discussed with radiologist the other day. No need for paracentesis at that time. Consider future paracentesis if with increased ascites. DVT PPX: SCDs Code status: This was readdressed in detail with patient and . Patient remains DO NOT RESUSCITATE. Discharge Plan: Home with home health and physical therapy at discharge Time Spent Managing Pts Care (In Minutes): 55
[2021-06-21] MEDS: CEFTRIAXONE 1,000 MG in NA CHLORIDE 0.9% 50 ML IVPB SCH (09:00)
[2021-06-21] MEDS ORDERED: CEFTRIAXONE 1000 MG/VIAL ONE (09:10)
[2021-06-21] MEDS ORDERED: NA CHLORIDE 0.9% 50 ML ONE (09:17)
[2021-06-21] MEDS: LACTULOSE 20 GM/30 ML UCUP PO SCH ×2 (09:35→20:50)
[2021-06-21] MEDS: PANTOPRAZOLE 40 MG INJ IVP SCH ×2 (09:36→20:50)
[2021-06-21] MEDS: ENSURE HIGH PROTEIN 237 ML CAN PO SCH ×2 (09:36→20:51)
[2021-06-21] MEDS: SPIRONOLACTONE 25 MG TABLET PO SCH (09:38)
[2021-06-21] MEDS: ALPRAZOLAM 0.25 MG TABLET PO PRN (20:50)
[2021-06-22 04:14] LABS: Absolute Lymphocytes (CBC) 0.1 K/uL (0.7-4.9); Basophils % 0.5 % (0-1.3); Lymphocytes % 5.4 % (15.3-44.8); MPV 8.1 fL (7.6-11.3); RBC Red Blood Cell Count 3.01 M/uL (4.33-5.43)
[2021-06-22 04:33] LABS: ALT/SGPT 273 U/L (12-78); AST/SGOT 271 U/L (15-37); Albumin 1.1 g/dL (3.4-5.0); Alkaline Phosphatase 197 U/L (45-117); BUN Blood Urea Nitrogen 21 mg/dL (7-18); Bicarbonate 20 mmol/L (21-32); Bilirubin Total 2.2 mg/dL (0.2-1.0); Glucose Level 112 mg/dL (74-106); Magnesium 1.8 mg/dL (1.8-2.4); Potassium 3.9 mmol/L (3.5-5.1); Sodium Level 135 mmol/L (136-145)
[2021-06-22] MEDS: carvediloL 3.125 MG TAB PO SCH (06:16)
[2021-06-22] MEDS ORDERED: MAGNESIUM SULFATE 1 gm IVPB 1 GM/100 ML BAG IV ONE (07:13)
[2021-06-22] MEDS ORDERED: CEFTRIAXONE 1000 MG/VIAL ONE (08:05)
[2021-06-22] MEDS ORDERED: NA CHLORIDE 0.9% 50 ML ONE (08:09)
[2021-06-22] MEDS: LACTULOSE 20 GM/30 ML UCUP PO SCH ×2 (08:49→21:44)
[2021-06-22] MEDS: PANTOPRAZOLE 40 MG INJ IVP SCH ×2 (08:49→21:44)
[2021-06-22] MEDS: ENSURE HIGH PROTEIN 237 ML CAN PO SCH ×2 (08:49→21:47)
[2021-06-22] MEDS: SPIRONOLACTONE 25 MG TABLET PO SCH (08:50)
[2021-06-22] MEDS: CEFTRIAXONE 1,000 MG in NA CHLORIDE 0.9% 50 ML IVPB SCH (08:54)
[2021-06-22] MEDS ORDERED: POTASSIUM CL SA 10 MEQ TAB PO ONE (09:00)
[2021-06-22] MEDS: TRAMADOL 37.5mg/APAP 325mg PER TAB PO PRN ×2 (09:31→17:16)
[2021-06-22 13:41] LABS: Absolute Lymphocytes (CBC) 0.1 K/uL (0.7-4.9); Hematocrit 28.8 % (39.6-49.0); Lymphocytes % 5.3 % (15.3-44.8); MPV 7.6 fL (7.6-11.3); RBC Red Blood Cell Count 2.91 M/uL (4.33-5.43)
[2021-06-22] MEDS: carvediloL 6.25 MG TAB PO SCH (17:12)
[2021-06-22] MEDS: OCTREOTIDE 500 MCG in NA CHLORIDE 0.9% 500 ML IV SCH (18:00)
[2021-06-22] MEDS ORDERED: carvediloL 3.125 MG TAB PO SCH (18:00)
[2021-06-22] MEDS: ALPRAZOLAM 0.25 MG TABLET PO PRN (22:01)
[2021-06-23] MEDS: OCTREOTIDE 500 MCG in NA CHLORIDE 0.9% 500 ML IV SCH ×2 (04:00→14:00)
[2021-06-23 04:27] LABS: Absolute Lymphocytes (CBC) 0.1 K/uL (0.7-4.9); Basophils % 0.3 % (0-1.3); Hematocrit 28.1 % (39.6-49.0); Lymphocytes % 6.3 % (15.3-44.8); MPV 7.3 fL (7.6-11.3); RBC Red Blood Cell Count 2.82 M/uL (4.33-5.43)
[2021-06-23] MEDS: TRAMADOL 37.5mg/APAP 325mg PER TAB PO PRN ×2 (04:29→17:44)
[2021-06-23 04:38] LABS: ALT/SGPT 215 U/L (12-78); AST/SGOT 206 U/L (15-37); Alkaline Phosphatase 184 U/L (45-117); BUN Blood Urea Nitrogen 22 mg/dL (7-18); Bicarbonate 21 mmol/L (21-32); Bilirubin Total 1.8 mg/dL (0.2-1.0); Glucose Level 107 mg/dL (74-106); Magnesium 1.9 mg/dL (1.8-2.4); Potassium 4.2 mmol/L (3.5-5.1); Protein, Total 6.7 g/dL (6.4-8.2); Sodium Level 135 mmol/L (136-145)
[2021-06-23] MEDS: carvediloL 6.25 MG TAB PO SCH ×2 (06:00→17:44)
[2021-06-23] MEDS ORDERED: NA CHLORIDE 0.9% 50 ML ONE (07:46)
[2021-06-23] MEDS ORDERED: CEFTRIAXONE 1000 MG/VIAL ONE (07:47)
[2021-06-23] MEDS: LACTULOSE 20 GM/30 ML UCUP PO SCH ×2 (08:30→20:13)
[2021-06-23] MEDS: PANTOPRAZOLE 40 MG INJ IVP SCH ×2 (08:30→20:12)
[2021-06-23] MEDS: ENSURE HIGH PROTEIN 237 ML CAN PO SCH ×2 (08:31→20:00)
[2021-06-23] MEDS: SPIRONOLACTONE 25 MG TABLET PO SCH (08:31)
[2021-06-23] MEDS: CEFTRIAXONE 1,000 MG in NA CHLORIDE 0.9% 50 ML IVPB SCH (09:00)
[2021-06-23] MEDS: ALPRAZOLAM 0.25 MG TABLET PO PRN (17:44)
[2021-06-24] MEDS: ALPRAZOLAM 0.25 MG TABLET PO PRN ×2 (03:36→18:00)
[2021-06-24] MEDS: TRAMADOL 37.5mg/APAP 325mg PER TAB PO PRN ×3 (03:36→22:23)
[2021-06-24] MEDS: carvediloL 6.25 MG TAB PO SCH ×2 (06:00→17:32)
[2021-06-24 06:36] LABS: Absolute Lymphocytes (CBC) 0.1 K/uL (0.7-4.9); Basophils % 0.7 % (0-1.3); Hematocrit 30.1 % (39.6-49.0); Lymphocytes % 5.3 % (15.3-44.8); MPV 7.4 fL (7.6-11.3); RBC Red Blood Cell Count 3.04 M/uL (4.33-5.43)
[2021-06-24 07:16] LABS: ALT/SGPT 186 U/L (12-78); AST/SGOT 188 U/L (15-37); Alkaline Phosphatase 200 U/L (45-117); BUN Blood Urea Nitrogen 19 mg/dL (7-18); Bicarbonate 20 mmol/L (21-32); Bilirubin Total 1.8 mg/dL (0.2-1.0); Glucose Level 94 mg/dL (74-106); Magnesium 1.9 mg/dL (1.8-2.4); Potassium 4.2 mmol/L (3.5-5.1); Protein, Total 6.9 g/dL (6.4-8.2); Sodium Level 135 mmol/L (136-145)
[2021-06-24] MEDS ORDERED: CEFTRIAXONE 1000 MG/VIAL ONE (08:10)
[2021-06-24] MEDS: PANTOPRAZOLE 40 MG INJ IVP SCH ×2 (08:18→19:56)
[2021-06-24 08:19] LABS: Platelet Estimate DECR
[2021-06-24] MEDS: ENSURE HIGH PROTEIN 237 ML CAN PO SCH ×2 (08:19→19:47)
[2021-06-24] MEDS: LACTULOSE 20 GM/30 ML UCUP PO SCH ×2 (08:19→19:56)
[2021-06-24] MEDS: OCTREOTIDE 500 MCG in NA CHLORIDE 0.9% 500 ML IV SCH (08:19)
[2021-06-24 08:20] LABS: Anisocytosis 1+; Blood Morphology Comment NOTED (NOT SEEN); Macrocytosis SLIGHT
[2021-06-24] MEDS ORDERED: NA CHLORIDE 0.9% 50 ML ONE (08:20)
[2021-06-24] MEDS: CEFTRIAXONE 1,000 MG in NA CHLORIDE 0.9% 50 ML IVPB SCH (08:21)
[2021-06-24] MEDS: SPIRONOLACTONE 25 MG TABLET PO SCH (08:22)
--- NOTE | 2021-06-24 12:15 | RAD REPORT ---
EXAM DESCRIPTION: RAD - Chest Single View - 06/24/2021 11:45 am CLINICAL HISTORY: dyspnea COMPARISON: Chest Single View dated 06/16/2021; Chest Pa And Lat (2 Views) dated 05/25/2021; Abdomen Pelvis W Contrast dated 06/16/2021; Abdomen Exam Limited dated 06/19/2021 FINDINGS: Lines: None. Lungs: Linear opacities in the lung bases bilaterally likely representing subsegmental atelectasis. Pleural: No significant pleural effusions or pneumothorax. Cardiac: The heart size is within normal limits. Bones: No acute fractures. Other: Lucency in the region of the right hemidiaphragm. IMPRESSION: Possible free air underneath the right hemidiaphragm. Decreased lung volumes with increa sed atelectasis.Discussed with Dr. Joel by Dr. Hansen at 1209 on 06/24/21.
--- NOTE | 2021-06-24 15:21 | RAD REPORT ---
EXAM DESCRIPTION: CT - Thorax W/ Con - 06/24/2021 2:47 pm CLINICAL HISTORY: sob COMPARISON: None TECHNIQUE: Computed axial tomography of the chest was obtained. 100 cc Isovue 300 was administered i ntravenously. All CT scans are performed using dose optimization technique as appropriate and may include automated exposure control or mA/KV adjustment according to patient size. FINDINGS: Areas atelectasis within the lower lobes. No mediastinal or hilar lymphadenopathy is seen. A pleural effusion is not present. A pericardial effusion is not seen. No free air. Cirrhotic liver Moderate amount ascites. Abdominal and paraesophageal varices. IMPRESSION: Areas of atelectasis within the lower lobes. No free air Heterogeneous density to the liver may indicate inflammation or neoplasm
[2021-06-24] MEDS ORDERED: ALBUMIN HUMAN 25% 100 ML IV ONE (18:00)
[2021-06-24] MEDS ORDERED: ALBUTEROL 2.5 MG/3 ML NEB SOL NEB ONE (18:09)
[2021-06-25] MEDS: ALPRAZOLAM 0.25 MG TABLET PO PRN (02:20)
[2021-06-25] MEDS: carvediloL 6.25 MG TAB PO SCH ×2 (04:31→18:00)
[2021-06-25 06:18] LABS: Absolute Lymphocytes (CBC) 0.2 K/uL (0.7-4.9); Basophils % 0.7 % (0-1.3); Hematocrit 24.4 % (39.6-49.0); Lymphocytes % 4.6 % (15.3-44.8); RBC Red Blood Cell Count 2.43 M/uL (4.33-5.43)
--- NOTE | 2021-06-25 07:08 | P.PN ---
Subjective Date of Service: 06/22/21 Patient still feeling very weak. Still with some hemorrhoidal bleeding. Otherwise, no melanotic stools noted. Blood pressure is better. H&H is stable. Wean off of octreotide and Protonix to p.o.. Review of Systems 10-point ROS is otherwise unremarkable Physical Examination - Vital Signs Temperature: 97.6 F Blood Pressure: 101/56 Pulse: 78 Respirations: 17 Pulse Ox (%): 96 - Physical Exam General: Alert, In no apparent distress, Oriented x3 HEENT: Atraumatic, PERRLA, EOMI Neck: Supple, JVD not distended Respiratory: Clear to auscultation bilaterally, Normal air movement Cardiovascular: Regular rate/rhythm, Normal S1 S2, No murmurs Gastrointestinal: Normal bowel sounds, Soft and benign, Non-distended, Tenderness Musculoskeletal: No clubbing, No swelling, No tenderness Neurological: Sensation intact, Cranial nerves 3-12 intact - Studies Medications List Reviewed: Yes Assessment & Plan - Problems (Diagnosis) (1) Liver cancer Current Visit: Yes Status: Acute (2) Anemia Current Visit: Yes Status: Acute (3) Ascites Current Visit: Yes Status: Acute (4) Cirrhosis, alcoholic Current Visit: Yes Status: Acute (5) Esophageal varices with bleeding Current Visit: Yes Status: Acute (6) Melena Current Visit: Yes Status: Acute - Plan Plan: 1. Continue with IV hydration and PPI drip along with octreotide drip. Patient status post banding of esophageal varices. 2. Continue with IV antibiotics 3. Continue with pain control 4. NPO 5. GI consultation appreciated; 6. Serial H&H, and we will monitor LFTs and lipase along with electrolytes. Hemoglobin has been stable 7. Oncology to follow up patient for liver mass 8. GI and DVT prophylaxis Discharge Plan: Home Plan to discharge in: Greater than 2 days - Advance Directives Does patient have a Living Will: No Does patient have a Durable POA for Healthcare: No - Code Status/Comfort Care Code Status Assessed: Yes Code Status: Full Code Critical Care: No Time Spent Managing PTS Care (In Minutes): 35
--- NOTE | 2021-06-25 07:10 | P.PN ---
Date of Service: 06/23/21 Subjective Patient is doing well with no new complaints. He actually is feeling better today. Spoke with family regarding patient's prognosis which is poor. Monitor hemoglobin and this is stable. Anticipate discharge over the next 48-72 hr. Patient tolerating more of his diet and starting to ambulate. Review of Systems 10-point ROS is otherwise unremarkable Physical Examination - Vital Signs Reviewed - Physical Exam General: Alert, In no apparent distress, Oriented x3 Respiratory: Clear to auscultation bilaterally, Normal air movement Cardiovascular: Regular rate/rhythm, Normal S1 S2, No murmurs Gastrointestinal: Normal bowel sounds, Soft and benign, Non-distended, Tenderness Musculoskeletal: No clubbing, No swelling, No tenderness Neurological: Sensation intact, Cranial nerves 3-12 intact - Studies Medications List Reviewed: Yes Assessment & Plan - Problems (Diagnosis) (1) Liver cancer Current Visit: Yes Status: Acute (2) Anemia Current Visit: Yes Status: Acute (3) Ascites Current Visit: Yes Status: Acute (4) Cirrhosis, alcoholic Current Visit: Yes Status: Acute (5) Esophageal varices with bleeding Current Visit: Yes Status: Acute (6) Melena Current Visit: Yes Status: Acute - Plan Continue with plan of care as mentioned below: 1. Continue with IV hydration and PPI drip along with octreotide drip. Patient status post banding of esophageal varices. 2. Continue with IV antibiotics 3. Continue with pain control 4. Advanced diet as tolerated and start therapy. 5. GI consultation appreciated; 6. Serial H&H, and we will monitor LFTs and lipase along with electrolytes. Hemoglobin has been stable 7. Oncology to follow up patient for liver mass; recommending CT imaging of the chest 8. GI and DVT prophylaxis Discharge Plan: Home Plan to discharge in: Greater than 2 days - Advance Directives Does patient have a Living Will: No Does patient have a Durable POA for Healthcare: No - Code Status/Comfort Care Code Status Assessed: Yes Code Status: Full Code Critical Care: No Time Spent Managing PTS Care (In Minutes): 35
--- NOTE | 2021-06-25 07:13 | P.PN ---
Date of Service: 06/24/21 Subjective Patient is currently doing well. he ate about 50-75% of his meals this morning. He is also drinking smoothies. He started get out of bed and his strength is improving. Wean off of octreotide and Protonix will be given orally Review of Systems 10-point ROS is otherwise unremarkable Physical Examination - Vital Signs Reviewed - Physical Exam General: Alert, In no apparent distress, Oriented x3 Respiratory: Clear to auscultation bilaterally, Normal air movement Cardiovascular: Regular rate/rhythm, Normal S1 S2, No murmurs Gastrointestinal: Normal bowel sounds, Soft and benign, Non-distended, Tenderness Musculoskeletal: No clubbing, No swelling, No tenderness Neurological: Sensation intact, Cranial nerves 3-12 intact - Studies Medications List Reviewed: Yes Assessment & Plan - Problems (Diagnosis) (1) Liver cancer Current Visit: Yes Status: Acute (2) Anemia Current Visit: Yes Status: Acute (3) Ascites Current Visit: Yes Status: Acute (4) Cirrhosis, alcoholic Current Visit: Yes Status: Acute (5) Esophageal varices with bleeding Current Visit: Yes Status: Acute (6) Melena Current Visit: Yes Status: Acute - Plan Continue with plan of care as mentioned below: 1. Hep-Lock IV. Dc octreotide and patient was started on Protonix 40 mg p.o. b.i.d. Patient status post banding of esophageal varices. 2. Continue with IV antibiotics; change to oral antibiotics at discharge 3. Continue with pain control; spoke to family regarding hospice care but at this time they are not wanting this. Spoke with Oncology and they will follow- up as an outpatient. 4. Advanced diet as tolerated and start therapy. 5. GI consultation appreciated; outpatient follow-up 6. Serial H&H, and we will monitor LFTs and lipase along with electrolytes. Hemoglobin has been stable 7. Oncology to follow up patient for liver mass; recommending CT imaging of the chest with no abnormalities 8. GI and DVT prophylaxis Discharge Plan: Home Plan to discharge in: In a.m. - Advance Directives Does patient have a Living Will: No Does patient have a Durable POA for Healthcare: No - Code Status/Comfort Care Code Status Assessed: Yes Code Status: Full Code Critical Care: No Time Spent Managing PTS Care (In Minutes): 35
[2021-06-25 07:22] LABS: ALT/SGPT 165 U/L (12-78); AST/SGOT 215 U/L (15-37); Albumin 1.2 g/dL (3.4-5.0); Alkaline Phosphatase 170 U/L (45-117); BUN Blood Urea Nitrogen 20 mg/dL (7-18); Bicarbonate 23 mmol/L (21-32); Bilirubin Direct 1.6 mg/dL (0-0.2); Glucose Level 113 mg/dL (74-106); Potassium 4.7 mmol/L (3.5-5.1); Protein, Total 5.9 g/dL (6.4-8.2); Sodium Level 136 mmol/L (136-145)
[2021-06-25] MEDS ORDERED: ALBUMIN HUMAN 25% 100 ML IV ONE (08:30)
[2021-06-25] MEDS: ENSURE HIGH PROTEIN 237 ML CAN PO SCH ×2 (09:00→19:35)
[2021-06-25] MEDS: CEFTRIAXONE 1,000 MG in NA CHLORIDE 0.9% 50 ML IVPB SCH (09:00)
[2021-06-25 09:08] LABS: Bilirubin Total 2.2 mg/dL (0.2-1.0)
[2021-06-25] MEDS ORDERED: CEFTRIAXONE 1000 MG/VIAL ONE (09:32)
[2021-06-25] MEDS ORDERED: NA CHLORIDE 0.9% 50 ML ONE (09:33)
[2021-06-25] MEDS: SPIRONOLACTONE 25 MG TABLET PO SCH (09:48)
[2021-06-25] MEDS: LACTULOSE 20 GM/30 ML UCUP PO SCH ×2 (09:48→19:35)
[2021-06-25] MEDS: PANTOPRAZOLE 40 MG INJ IVP SCH (09:54)
[2021-06-25 11:43] LABS: Absolute Lymphocytes (CBC) 0.3 K/uL (0.7-4.9); Basophils % 0.8 % (0-1.3); Hematocrit 21.5 % (39.6-49.0); Lymphocytes % 6.7 % (15.3-44.8); MPV 6.9 fL (7.6-11.3); RBC Red Blood Cell Count 2.14 M/uL (4.33-5.43)
[2021-06-25] MEDS ORDERED: OCTREOTIDE 500 MCG in NA CHLORIDE 0.9% 500 ML IV SCH (14:00)
[2021-06-25] MEDS ORDERED: PANTOPRAZOLE INJ 80 MG in NA CHLORIDE 0.9% 250 ML IV SCH (14:00)
[2021-06-25] MEDS ORDERED: NA CHLORIDE 0.9% 500 ML ONE (15:49)
[2021-06-25] MEDS: TRAMADOL 37.5mg/APAP 325mg PER TAB PO PRN (18:41)
[2021-06-25 20:30] VITALS: TEMP 96.9
[2021-06-25] MEDS ORDERED: PANTOPRAZOLE 40MG TABLET PO SCH (21:00)
[2021-06-25 21:50] LABS: Absolute Lymphocytes (CBC) 0.3 K/uL (0.7-4.9); Basophils % 0.7 % (0-1.3); Hematocrit 24.8 % (39.6-49.0); Lymphocytes % 4.6 % (15.3-44.8); RBC Red Blood Cell Count 2.52 M/uL (4.33-5.43)
[2021-06-25 22:04] VITALS: O2SAT 100
[2021-06-26] MEDS ORDERED: NA CHLORIDE 0.9% 1,000 ML ONE (03:15)
[2021-06-26] MEDS ORDERED: NA CHLORIDE 0.9% 250 ML ONE (03:43)
[2021-06-26 04:06] LABS: Absolute Lymphocytes (CBC) 0.7 K/uL (0.7-4.9); Basophils % 6.1 % (0-1.3); Lymphocytes % 7.9 % (15.3-44.8); MPV 7.2 fL (7.6-11.3); RBC Red Blood Cell Count 1.94 M/uL (4.33-5.43)
[2021-06-26 04:07] LABS: Protime INR 1.94
[2021-06-26 04:10] LABS: Hematocrit 19.3 % (39.6-49.0)
[2021-06-26 04:27] VITALS: BP 96/65
[2021-06-26] MEDS: carvediloL 6.25 MG TAB PO SCH (04:27)
[2021-06-26 04:28] LABS: Anisocytosis 1+; Blood Morphology Comment NOTED (NOT SEEN); Platelet Estimate DECR
[2021-06-26] MEDS: TRAMADOL 37.5mg/APAP 325mg PER TAB PO PRN (05:48)
--- NOTE | 2021-06-26 13:01 | P.DS ---
Admission Date: 06/17/21 Discharge Date: 06/26/21 Primary Care Provider: Dr. Carter Disposition: Discharge Condition: GOOD Reason for Admission: UGIB, melena, cirrhosis, esophageal varices Hospital Course: Patient with history of alcoholic liver cirrhosis, with portal varices admitted for anemia underwent EGD with banding but developed worsening hematemesis and hematochezia postprocedure with further drop in H&H down to 6.4. Patient received PRBC but continued to decline and became hypotensive which progressed. Patient was made DNR DNI by the family and subsequently this morning Vital Signs/Physical Exam: Temp Pulse Resp BP Pulse Ox 96.9 F 84 18 96/65 97 06/26/21 04:00 06/26/21 04:27 06/26/21 04:00 06/26/21 04:27 06/26/21 04:00 Laboratory Data at Discharge: WBC 9.10 K/uL (4.3-10.9) D 06/26/21 03:43 Hgb 6.3 g/dL (13.6-17.9) L* 06/26/21 03:43 Hct 19.3 % (39.6-49.0) L* D 06/26/21 03:43 Plt Count 95 K/uL (152-406) L D 06/26/21 03:43 PT 22.5 SECONDS (9.5-12.5) H 06/26/21 03:43 INR 1.94 06/26/21 03:43 APTT 34.6 SECONDS (24.3-36.9) 06/26/21 03:43 Sodium 136 mmol/L (136-145) 06/25/21 06:01 Potassium 4.7 mmol/L (3.5-5.1) 06/25/21 06:01 BUN 20 mg/dL (7-18) H 06/25/21 06:01 Creatinine 0.80 mg/dL (0.55-1.3) 06/25/21 06:01 Glucose 113 mg/dL (74-106) H 06/25/21 06:01 Magnesium 1.9 mg/dL (1.8-2.4) 06/24/21 05:50 Total Bilirubin 2.2 mg/dL (0.2-1.0) H 06/25/21 06:01 AST 215 U/L (15-37) H 06/25/21 06:01 ALT 165 U/L (12-78) H 06/25/21 06:01 Alkaline Phosphatase 170 U/L (45-117) H 06/25/21 06:01 Lipase 329 U/L (73-393) 06/16/21 21:20 Home Medications: Cefdinir [Omnicef] 300 mg PO BID #10 capsule 06/25/21 Ensure High Protein 237 ml PO BID #60 can 06/25/21 Hydrocodone 5/APAP 325 [[place] 5/325] 1 tab PO Q6H PRN #30 tab 06/25/21 Lactulose [Cephulac*] 30 ml PO BID #2000 ml 06/25/21 Pantoprazole [Protonix Tab] 40 mg PO BID #60 tab 06/25/21 Spironolactone [Aldactone*] 25 mg PO DAILY #30 tab 06/25/21 carvediloL [Coreg*] 6.25 mg PO BID 6AM 6PM #60 tab 06/25/21 New Medications: Spironolactone [Aldactone*] 25 mg PO DAILY #30 tab Lactulose [Cephulac*] 30 ml PO BID #2000 ml carvediloL [Coreg*] 6.25 mg PO BID 6AM 6PM #60 tab Ensure High Protein 237 ml PO BID #60 can Hydrocodone 5/APAP 325 [[place] 5/325] 1 tab PO Q6H PRN #30 tab PRN Reason: Pain Cefdinir [Omnicef] 300 mg PO BID #10 capsule Pantoprazole [Protonix Tab] 40 mg PO BID #60 tab Followup: Unknown,U [Primary Care Provider] - Time spent managing pt's care (in minutes): 30
== END 2021-06-26 15:26 | disposition expired | DRG 368 ==
LOC: ER 18:52 → ERHOLD 06-17 00:46 → 2ND 06-17 07:02 → ERHOLD 06-17 11:36 → 2ND 06-20 18:11
PROVIDERS: ADMIT Family Medicine; ATTEND Internal Medicine
PROC: 30233N1 Transfusion of Nonautologous Red Blood Cells into Peripheral Vein, Percutaneous Approach (ICD-10-PCS; 2021-06-17)
PROC: 30233R1 Transfusion of Nonautologous Platelets into Peripheral Vein, Percutaneous Approach (ICD-10-PCS; 2021-06-17)
PROC: 30233L1 Transfusion of Nonautologous Fresh Plasma into Peripheral Vein, Percutaneous Approach (ICD-10-PCS; 2021-06-17)
PROC: 0W3P8ZZ Control Bleeding in Gastrointestinal Tract, Via Natural or Artificial Opening Endoscopic (ICD-10-PCS; principal; 2021-06-17 12:45)
DX: I85.01 Esophageal varices with bleeding (principal); D66 Hereditary factor VIII deficiency; D62 Acute posthemorrhagic anemia; K76.6 Portal hypertension; I86.4 Gastric varices; I10 Essential (primary) hypertension; D73.2 Chronic congestive splenomegaly; K70.31 Alcoholic cirrhosis of liver with ascites; I85.11 Secondary esophageal varices with bleeding; B19.20 Unspecified viral hepatitis C without hepatic coma; R16.1 Splenomegaly, not elsewhere classified; R94.5 Abnormal results of liver function studies; Z79.01 Long term (current) use of anticoagulants; Z79.899 Other long term (current) drug therapy; Z85.05 Personal history of malignant neoplasm of liver; Z20.822 Contact with and (suspected) exposure to COVID-19
CPT/HCPCS: 36415; 36430; 71045; 71260; 74177; 76705; 80048; 80053; 80076; 81003; 82140; 82977; 83690; 83735; 84439; 84443; 84484; 85025; 85610; 85730; 86850; 86900; 86901; 93005; 94010; 94640; 97116; 97161; 97530; 99285; C9113; J0696; J2354; J3475; J3480; J7030; J7040; J7050; J7120; J7799; P9016; P9035; P9047; P9059; P9073; P9100; Q9967; U0003